=== PATIENT | female | born 1950 | race Caucasian/White ===

== ENCOUNTER 2016-09-06 06:53 | Day surgery (SDC) | payer MEDICARE, BC ==
[2016-08-31 11:45] VITALS: BMI 18.9
[2016-09-06] MEDS ORDERED: SODIUM CHLORIDE 0.9% 1,000 ML IV SCH (07:04)
[2016-09-06 07:14] VITALS: RESP 18
[2016-09-06 09:59] VITALS: BP 125/62; PULSE 69; TEMP 98.4
--- NOTE | 2016-09-06 11:05 | P.PCN ---
Preoperative Diagnosis: Patient with recurrent episodes of syncope Baseline 12-lead ECG shows sinus rhythm with normal cardiac intervals Normal CA interval Narrow QRS Following this she was taken to the tilt table lab Baseline blood pressure 141/65 mmHg Baseline heart rate 61 beats a minute Patient was tilted upright at an angle of 70 per protocol after about 30 minutes or so there was a sudden drop in her blood pressure to 77/50 mmHg. She stated that she was going to pass out and became presyncopal. Lowest blood pressure recorded was 73/39 mmHg while her heart rate was still normal at 70 beats a minute. She complained of nausea. When she was laid supine her blood pressure normalized Impression Vasovagal response to upright tilting Patient is currently on flecainide 50 mg twice daily and atenolol 12.5 mg by mouth daily for suppression of atrial fibrillation She also takes Maxide Suggest Stop Maxide Increase fluid and salt intake If symptoms continue despite this for the next 4-6 weeks then start Florinef 0.1 mg by mouth daily Discussed with the patient and her and explained the vasovagal response. Discussed therapy Anesthesia: none Condition: stable Disposition: same day
== END 2016-09-06 09:50 | disposition home or self-care (01) ==
LOC: CATHEP 06:53
PROVIDERS: ATTEND Internal Medicine Clinical Cardiac Electrophysiology
DX: R55 Syncope and collapse (principal); R94.31 Abnormal electrocardiogram [ECG] [EKG]; I48.0 Paroxysmal atrial fibrillation; I48.92 Unspecified atrial flutter; I49.5 Sick sinus syndrome; E78.5 Hyperlipidemia, unspecified; Z82.49 Family history of ischemic heart disease and other diseases of the circulatory system; Z79.899 Other long term (current) drug therapy; Z88.5 Allergy status to narcotic agent; Z88.0 Allergy status to penicillin; Z88.2 Allergy status to sulfonamides; Z88.8 Allergy status to other drugs, medicaments and biological substances; Z91.040 Latex allergy status; Z87.891 Personal history of nicotine dependence
CPT/HCPCS: 93005; 93660

== ENCOUNTER → 2016-12-12 | Outpatient (CLI) | payer MEDICARE, BC ==
[2016-12-12 10:08] LABS: Blood Urea Nitrogen 10 mg/dL (7-17); Non-African American GFR(MDRD) >60 (>60 ml/min/1.73 sqM)
--- NOTE | 2016-12-12 14:23 | MR ---
EXAMINATION TYPE: MR brain wo/w cspine wo, MR angio head wo con DATE OF EXAM: 12/12/2016 11:20 AM COMPARISON: MRI/MRA brain November 19, 2015. MRI cervical spine August 17, 2011. HISTORY: Headache, Cervicalgia (accession [id number]), Headache, Cervicalgia, Aneurysm (accession [id number]) TECHNIQUE: Multiplanar, multisequence images of the brain and brainstem is performed without and with IV contras t, utilizing 10 mL intravenous MultiHance . Multiplanar, multisequence imaging of cervical spine is p erformed without IV contrast. [id number] images focusing on [place] are performed withou t contrast. 2-D and 3-D reconstructed images are created and reviewed. FINDINGS: Diffusion weighted images demonstrate no evidence of a recent infarct or other diffusion ab normality. There is no worrisome extra-axial fluid collection. The ventricular system and cisternal spaces remain normal in size and appearance. Slight asymmetry is stable presumed congenital variant . The brain volume is age appropriate. Occasional focus of T2 hyperintensity throughout the white mat ter remains present. Midline structures demonstrate normal morphology. The craniocervical junction appears within normal limits. Post contrast images demonstrate no abnormal enhancement. The dural venous sinuses appear pa tent. The visualized sinuses are clear and the globes are intact. Some patchy fluid left mastoid air cells is again seen. MRA images show tortuous course to distal left vertebral artery. There is codominant vertebrobasilar system. There is no significant focal stenosis or aneurysmal change in the posterior circulation. The re are patent posterior communicating arteries identified bilaterally. Images of the anterior circula tion show poor visualization of anterior communicating artery. There is persistent 2 mm prominence of the distal right middle cerebral artery past the trifurcation could be due to branching vessels and cranial course seen best on axial image 65, stable aneurysm is not excluded. No new aneurysm is evide nt. IMPRESSION: Possible small right-sided aneurysm is stable. No new aneurysm is seen. Stable minimal wh ite matter changes presumed product of chronic small vessel ischemic change. No new or enhancing lesi ons identified. MRI CERVICAL SPINE: Motion artifact degradation is present. FINDINGS: Sagittal images of the cervical spine show the craniocervical junction to appear within nor mal limits. The cervical and upper thoracic spinal cord is normal in course, caliber, and signal. V ertebral alignment is anatomic. The vertebral body heights are normal. Mild multilevel disc space na rrowing is present most prominent C5-C6 level. Small posterior disc herniations are redemonstrated C3 -C4 through C5-C6 levels on sagittal images. The bone marrow signal intensity remains within normal l imits. No significant spurring is present. Axial images show the C2-C3 level to remain within normal limits. Axial images at C3-C4 level show uncovertebral facet degenerative changes bilaterally with mild broad based disc protrusion mildly effacing anterior thecal sac with mild bilateral neural foraminal narro wing, no significant change from prior study is seen. Axial images at C4-C5 level show uncovertebral facet degenerative changes bilaterally with mild broad -based posterior disc protrusion, there is mild bilateral neural foraminal narrowing and mild effacem ent of anterior thecal sac redemonstrated. Axial images at C5-C6 level show mild broad based posterior disc protrusion mildly effacing anterior thecal sac with left-sided uncovertebral facet degenerative changes causing mild left-sided neural fo raminal narrowing. Right-sided neural foramen is patent. Left-sided findings more prominent than prio r exam. Axial images at C6-C7 and C7-T1 level are degraded by artifact but felt within normal limits. IMPRESSION: Multilevel degenerative changes in the upper to mid cervical spine as detailed above with progression in findings at C5-C6 level noted.
== END | disposition home or self-care (01) ==
LOC: RADMRIMAIN 09:24
PROVIDERS: ATTEND Nurse Practitioner Acute Care
DX: R90.82 White matter disease, unspecified (principal); I67.82 Cerebral ischemia; M47.812 Spondylosis without myelopathy or radiculopathy, cervical region
CPT/HCPCS: 82565; 84520; 70544; 70553; 72141; A9577

== ENCOUNTER 2017-01-05 15:20 | Inpatient (IN) | payer MEDICARE, BC ==
[2017-01-05 15:29] VITALS: RESP 18
[2017-01-05] MEDS ORDERED: SODIUM CHLORIDE 0.9% 1,000 ML IV STA (15:46)
[2017-01-05] MEDS ORDERED: RX INFO: IV CONTRAST WAS GIVEN 1 EACH MISC MISCELLANE PRN (15:47)
--- NOTE | 2017-01-05 15:59 | ED ---
General Adult HPI - General Chief complaint: Neuro Symptoms/Deficit Stated complaint: Poss TIA Time Seen by Provider: 01/05/17 15:34 Source: patient, RN notes reviewed, old records reviewed Mode of arrival: wheelchair Limitations: no limitations - History of Present Illness Initial comments: This is a 58-year-old female here for evaluation. Patient is today for evaluation of neurological symptoms. Left-sided facial weakness left-sided eyelid weakness left-sided arm and leg weakness. Patient does have history history of aneurysm. Patient states that the symptoms she awoke with today. They have been consistent ever since she awoke. No consistent headaches. No nausea or vomiting. - Related Data Home Medications Medication Instructions Recorded Confirmed ALPRAZolam [ALPRAZolam] 0.5 mg PO TID PRN 12/29/14 01/05/17 DULoxetine HCL [Cymbalta] 60 mg PO DAILY 12/29/14 01/05/17 Meclizine [Antivert] 25 mg PO Q8H PRN 12/29/14 01/05/17 Triamterene-Hctz 37.5-25Mg 1 tab PO DAILY PRN 12/29/14 01/05/17 [Maxzide-25] Flecainide [Tambocor] 25 mg PO DAILY 04/12/16 01/05/17 Atenolol [Tenormin] 12.5 mg PO DAILY 01/05/17 01/05/17 Allergies Allergy/AdvReac Type Severity Reaction Status Date / Time acetazolamide Allergy Unknown Verified 01/05/17 16:16 [From Diamox Sequels] codeine Allergy Rash/Hives Verified 01/05/17 16:16 latex Allergy Anaphylaxis Verified 01/05/17 16:16 lidocaine Allergy Rapid Verified 01/05/17 16:16 Heart Rate meperidine HCl [From Demerol] Allergy Rash/Hives Verified 01/05/17 16:16 morphine Allergy Hallucinati Verified 01/05/17 16:16 ons Penicillins Allergy Rash/Hives Verified 01/05/17 16:16 prednisone Allergy Rash/Hives Verified 01/05/17 16:16 Sulfa (Sulfonamide Allergy Rash/Hives Verified 01/05/17 16:16 Antibiotics) iv contrast AdvReac Dyspnea Uncoded 01/05/17 16:43 Review of Systems ROS Statement: Those systems with pertinent positive or pertinent negative responses have been documented in the HPI. ROS Other: All systems not noted in ROS Statement are negative. 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 SKIN CA, BASAL CELL. MENIERE'S. SJOGREN'S. DRY EYES. EDEMA FEET, LEGS, HANDS. aneurysm right side of brain- monitoring History of Any Multi-Drug Resistant Organisms: None Reported Past Surgical History: Appendectomy, Breast Surgery, Hysterectomy, Orthopedic Surgery, Tonsillectomy Additional Past Surgical History / Comment(s): CHAUNCEY BREAST BX. EXC GANGLION CYST , carpal tunnel LT WRIST, tendon surgery rt hip Past Anesthesia/Blood Transfusion Reactions: Previous Problems w/ Anesthesia, Family History of Problems w/ Anesthesia, Motion Sickness, Postoperative Nausea & Vomiting (PONV) Additional Past Anesthesia/Blood Transfusion Reaction / Comment(s): general anesthesia caused hallucination for 3 days after hip surgery, LIDOCAINE CAUSES HEART TO RACE. SLOW TO AWAKEN. DAUGHTER AND SISTER HAVE PONV, Past Psychological History: Anxiety, Panic Disorder Additional Psychological History / Comment(s): PANIC ATTACKS IN PAST. Smoking Status: Former smoker Past Alcohol Use History: None Reported Additional Past Alcohol Use History / Comment(s): stopped smoking >20 yrs. ago, social smoker only-not every day Past Drug Use History: None Reported - Past Family History Mother Family Medical History: Deep Vein Thrombosis (DVT) Father Family Medical History: Cancer General Exam - General Exam Comments Initial Comments: NIH of 7 with left-sided facial left-sided arm and left leg weakness Limitations: no limitations General appearance: alert, in no apparent distress Head exam: Present: atraumatic, normocephalic, normal inspection Eye exam: Present: normal appearance, PERRL, EOMI. Absent: scleral icterus, conjunctival injection, periorbital swelling ENT exam: Present: normal exam, mucous membranes moist Neck exam: Present: normal inspection. Absent: tenderness, meningismus, lymphadenopathy Respiratory exam: Present: normal lung sounds bilaterally. Absent: respiratory distress, wheezes, rales, rhonchi, stridor Cardiovascular Exam: Present: regular rate, normal rhythm, normal heart sounds. Absent: systolic murmur, diastolic murmur, rubs, gallop, clicks GI/Abdominal exam: Present: soft, normal bowel sounds. Absent: distended, tenderness, guarding, rebound, rigid Extremities exam: Present: normal inspection, full ROM, normal capillary refill. Absent: tenderness, pedal edema, joint swelling, calf tenderness Back exam: Present: normal inspection Neurological exam: Present: alert, oriented X3, CN II-XII intact Psychiatric exam: Present: normal affect, normal mood Skin exam: Present: warm, dry, intact, normal color. Absent: rash Course Vital Signs 01/05/17 01/05/17 01/05/17 15:26 15:52 16:37 Temperature 97.8 F Pulse Rate 74 65 68 Respiratory 18 18 18 Rate Blood Pressure 167/71 160/71 173/74 O2 Sat by Pulse 100 100 98 Oximetry 01/05/17 01/05/17 01/05/17 17:19 18:47 19:53 Temperature 98.2 F Pulse Rate 75 77 71 Respiratory 18 18 18 Rate Blood Pressure 184/83 151/87 157/74 O2 Sat by Pulse 100 98 98 Oximetry 01/05/17 01/05/17 22:23 23:17 Temperature 98.0 F 98.3 F Pulse Rate 78 78 Respiratory 18 18 Rate Blood Pressure 150/67 146/74 O2 Sat by Pulse 99 100 Oximetry - Reevaluation(s) Reevaluation #1: 01/05/17 18:51 At this point symptoms remain, no change Reevaluation #2: 01/05/17 18:52 Spoke with neurological intervention, spoke with neurological, spoke with Saji villavicencioay for transfer EKG Findings - EKG Comments: EKG Findings:: EKG shows normal sinus rhythm rate of 65, MA 200, QRS 88, QTC 416 Medical Decision Making - Medical Decision Making 58 female in the ER for evaluation. Patient has known aneurysm on MRI, at this point patient coming with left-sided weakness. Patient retransferred for neurologic intervention. Patient family refusing transfer to [facility], will wish to be transferred to [facility]. At this point we'll transfer patient to [facility] - Lab Data Result diagrams: 01/05/17 15:55 01/05/17 15:55 Lab Results 01/05/17 01/05/17 01/05/17 Range/Units 15:55 15:55 15:55 WBC 5.1 (3.8-10.6) k/uL RBC 3.68 L (3.80-5.40) m/uL Hgb 11.2 L (11.4-16.0) gm/dL Hct 35.1 (34.0-46.0) % MCV 95.4 (80.0-100.0) fL MCH 30.4 (25.0-35.0) pg MCHC 31.8 (31.0-37.0) g/dL RDW 12.6 (11.5-15.5) % Plt Count 336 (150-450) k/uL Neutrophils % 59 % Lymphocytes % 30 % Monocytes % 6 % Eosinophils % 2 % Basophils % 2 % Neutrophils # 3.0 (1.3-7.7) k/uL Lymphocytes # 1.5 (1.0-4.8) k/uL Monocytes # 0.3 (0-1.0) k/uL Eosinophils # 0.1 (0-0.7) k/uL Basophils # 0.1 (0-0.2) k/uL PT (9.0-12.0) sec INR (<1.1) APTT (22.0-30.0) sec Sodium 139 (137-145) mmol/L Potassium 4.1 (3.5-5.1) mmol/L Chloride 105 (98-107) mmol/L Carbon Dioxide 25 (22-30) mmol/L Anion Gap 9 mmol/L BUN 10 (7-17) mg/dL Creatinine 0.84 (0.52-1.04) mg/dL Est GFR (MDRD) Af Amer >60 (>60 ml/min/1.73 sqM) Est GFR (MDRD) Non-Af >60 (>60 ml/min/1.73 sqM) Glucose 103 H (74-99) mg/dL Calcium 8.9 (8.4-10.2) mg/dL Phosphorus 3.7 (2.5-4.5) mg/dL Magnesium 1.7 (1.6-2.3) mg/dL Total Bilirubin 0.5 (0.2-1.3) mg/dL AST 21 (14-36) U/L ALT 24 (9-52) U/L Alkaline Phosphatase 65 (38-126) U/L Total Creatine Kinase 76 (30-135) U/L CK-MB (CK-2) 0.6 (0.0-2.4) ng/mL CK-MB (CK-2) Rel Index 0.8 Troponin I <0.012 (0.000-0.034) ng/mL Total Protein 6.5 (6.3-8.2) g/dL Albumin 3.8 (3.5-5.0) g/dL Urine Color Urine Appearance (Clear) Urine pH (5.0-8.0) Ur Specific Wisner (1.001-1.035) Urine Protein (Negative) Urine Glucose (UA) (Negative) Urine Ketones (Negative) Urine Blood (Negative) Urine Nitrite (Negative) Urine Bilirubin (Negative) Urine Urobilinogen (<2.0) mg/dL Ur Leukocyte Esterase (Negative) Urine RBC (0-5) /hpf Urine WBC (0-5) /hpf Urine Bacteria (None) /hpf 01/05/17 01/05/17 Range/Units 15:55 16:45 WBC (3.8-10.6) k/uL RBC (3.80-5.40) m/uL Hgb (11.4-16.0) gm/dL Hct (34.0-46.0) % MCV (80.0-100.0) fL MCH (25.0-35.0) pg MCHC (31.0-37.0) g/dL RDW (11.5-15.5) % Plt Count (150-450) k/uL Neutrophils % % Lymphocytes % % Monocytes % % Eosinophils % % Basophils % % Neutrophils # (1.3-7.7) k/uL Lymphocytes # (1.0-4.8) k/uL Monocytes # (0-1.0) k/uL Eosinophils # (0-0.7) k/uL Basophils # (0-0.2) k/uL PT 11.3 (9.0-12.0) sec INR 1.1 (<1.1) APTT 25.3 (22.0-30.0) sec Sodium (137-145) mmol/L Potassium (3.5-5.1) mmol/L Chloride (98-107) mmol/L Carbon Dioxide (22-30) mmol/L Anion Gap mmol/L BUN (7-17) mg/dL Creatinine (0.52-1.04) mg/dL Est GFR (MDRD) Af Amer (>60 ml/min/1.73 sqM) Est GFR (MDRD) Non-Af (>60 ml/min/1.73 sqM) Glucose (74-99) mg/dL Calcium (8.4-10.2) mg/dL Phosphorus (2.5-4.5) mg/dL Magnesium (1.6-2.3) mg/dL Total Bilirubin (0.2-1.3) mg/dL AST (14-36) U/L ALT (9-52) U/L Alkaline Phosphatase (38-126) U/L Total Creatine Kinase (30-135) U/L CK-MB (CK-2) (0.0-2.4) ng/mL CK-MB (CK-2) Rel Index Troponin I (0.000-0.034) ng/mL Total Protein (6.3-8.2) g/dL Albumin (3.5-5.0) g/dL Urine Color Colorless Urine Appearance Clear (Clear) Urine pH 6.5 (5.0-8.0) Ur Specific Wisner 1.001 (1.001-1.035) Urine Protein Negative (Negative) Urine Glucose (UA) Negative (Negative) Urine Ketones Negative (Negative) Urine Blood Small H (Negative) Urine Nitrite Negative (Negative) Urine Bilirubin Negative (Negative) Urine Urobilinogen <2.0 (<2.0) mg/dL Ur Leukocyte Esterase Small H (Negative) Urine RBC <1 (0-5) /hpf Urine WBC 3 (0-5) /hpf Urine Bacteria Rare H (None) /hpf - Radiology Data Radiology results: report reviewed (CT brain CTA head and neck does show 5 mm aneurysm), image reviewed Disposition Clinical Impression: Cerebrovascular accident, Brain aneurysm Narrative: Left Sided Weakness Disposition: OTHER INSTITUTION NOT DEFINED Condition: Serious - Out of Hospital Transfer - Req. Specs Out of Hospital Transfer - Requested Specifics: Other Emergency Center ( [facility])
[2017-01-05 16:04] LABS: Basophils # (A) 0.1 k/uL (0-0.2); Basophils % (A) 2 %; CH 30.9; CHCM 32.5; Eosinophils # (A) 0.1 k/uL (0-0.7); Eosinophils % (A) 2 %; HCT 35.1 % (34.0-46.0); HDW 2.21; HGB 11.2 gm/dL (11.4-16.0); Luc # (Auto) 0.13; Luc % (Auto) 3; Lymphocytes # (A) 1.5 k/uL (1.0-4.8); Lymphocytes % (A) 30 %; MCH 30.4 pg (25.0-35.0); MCHC 31.8 g/dL (31.0-37.0); MCV 95.4 fL (80.0-100.0); Mean Platelet Volume 7.3; Monocytes # (A) 0.3 k/uL (0-1.0); Monocytes % (A) 6 %; Neutrophils % (A) 59 %; RBC 3.68 m/uL (3.80-5.40); RDW 12.6 % (11.5-15.5); WBC 5.1 k/uL (3.8-10.6); WBC (Perox) 5.05
[2017-01-05 16:14] LABS: INR 1.1 (<1.1); Partial Thromboplastin Time 25.3 sec (22.0-30.0); Prothrombin Time 11.3 sec (9.0-12.0)
[2017-01-05] MEDS ORDERED: methylPREDNISolone SOD SUCCI 125 MG/2 ML VIAL IV STA (16:25)
[2017-01-05] MEDS ORDERED: FAMOTIDINE 20 MG/2 ML VIAL IV STA (16:25)
[2017-01-05] MEDS ORDERED: diphenhydrAMINE 50 MG/ML 1 ML VIAL IVP STA (16:25)
[2017-01-05 16:50] LABS: Creatine Kinase 76 U/L (30-135)
[2017-01-05 16:57] LABS: ALT 24 U/L (9-52); AST 21 U/L (14-36); Alkaline Phosphatase 65 U/L (38-126); Anion Gap 9 mmol/L; Blood Urea Nitrogen 10 mg/dL (7-17); Calcium 8.9 mg/dL (8.4-10.2); Carbon Dioxide 25 mmol/L (22-30); Chloride 105 mmol/L (98-107); Glucose 103 mg/dL (74-99); Magnesium 1.7 mg/dL (1.6-2.3); Non-African American GFR(MDRD) >60 (>60 ml/min/1.73 sqM); Phosphorous 3.7 mg/dL (2.5-4.5); Potassium 4.1 mmol/L (3.5-5.1); Sodium 139 mmol/L (137-145); Total Bilirubin 0.5 mg/dL (0.2-1.3); Total Protein 6.5 g/dL (6.3-8.2)
[2017-01-05 17:02] LABS: Creatine Kinase MB 0.6 ng/mL (0.0-2.4); Troponin I <0.012 ng/mL (0.000-0.034)
[2017-01-05 17:06] LABS: Appearance,Urine Clear (Clear); Bacteria,Urine Rare /hpf; Bilirubin,Urine Negative (Negative); Glucose,Urine (UA) Negative (Negative); Ketones,Urine Negative (Negative); Leukocyte Esterase,Urine Small (Negative); Nitrite,Urine Negative (Negative); PH, Urine 6.5 (5.0-8.0); Particle Count 438; Protein,Urine Negative (Negative); RBC,Urine <1 /hpf (0-5); Specific Gravity,Urine 1.001 (1.001-1.035); UA Billing (MACRO vs. MICRO) MICRO; Urobilinogen,Urine <2.0 mg/dL (<2.0); WBC,Urine 3 /hpf (0-5)
--- NOTE | 2017-01-05 18:11 | CT ---
EXAMINATION TYPE: CT angio head neck DATE OF EXAM: 01/05/2017 5:47 PM COMPARISON: NONE HISTORY: Left sided weakness CT DLP: 1415 mGycm Automated exposure control for dose reduction was used. TECHNIQUE: Performed with IV Contrast, patient injected with 65 mL of Visipaque 320. There are 3-D post processed images.. FINDINGS: There is arterial flow in the anterior middle and posterior cerebral arteries. There is arterial flow in the vertebrobasilar artery system. There is bilateral patency of the posterior communicating adelina ruben. I see no evidence of neovascularity. There is normal contrast opacification of the venous sinus es. There is slight bulbous appearance of the tip of the basilar artery. This measures 5 mm. The common carotid arteries are widely patent. There is wide patency of the carotid artery bifurcatio ns. There is no evidence of stenosis. There is no sign of carotid dissection. IMPRESSION: THERE IS SLIGHT BULBOUS APPEARANCE OF THE TIP OF THE BASILAR ARTERY CONSISTENT WITH MINIMAL 5 MM ANEU RYSM. OTHERWISE NEGATIVE CT ANGIOGRAM OF THE BRAIN.. NORMAL CT ANGIOGRAM OF THE NECK.
--- NOTE | 2017-01-05 18:13 | CT ---
EXAMINATION TYPE: CT brain wo con DATE OF EXAM: 01/05/2017 5:47 PM COMPARISON: 12/16/2015 HISTORY: Left sided weakness. CT DLP: 1415 mGycm Automated exposure control for dose reduction was used. FINDINGS: There is mild cerebral cortical atrophy. There is no mass effect nor midline shift. There is no sign of intracranial hemorrhage. The calvarium is intact. IMPRESSION: Negative unenhanced head CT scan. No change. Mild cerebral atrophy.
[2017-01-05] MEDS ORDERED: LABETALOL 5 MG/ML VIAL MDV IVP STA (19:02)
[2017-01-05] MEDS ORDERED: ASPIRIN 325 MG TAB PO STA (19:03)
[2017-01-05] MEDS ORDERED: SODIUM CHLORIDE 0.9% 1,000 ML IV SCH (19:15)
[2017-01-05 22:24] VITALS: PULSE 78
[2017-01-05 23:18] VITALS: BP 146/74; TEMP 98.3
[2017-01-06] MEDS ORDERED: ASPIRIN 325 MG TAB PO SCH (09:00)
--- NOTE | 2017-01-06 09:14 | HP ---
DATE OF ADMISSION: 01/05/2017 PRESENTING COMPLAINT: Left-sided weakness. HISTORY OF PRESENTING COMPLAINT: This is a pleasant 66-year-old patient of Dr. Love. Patient does follow with Dr. Yip. 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 Has been followed by Dr. Yip. Patient also has a diagnosis of normal pressure hydrocephalus. Also has history of atrial fibrillation, no anticoagulation because of aneurysm. Patient's aneurysm is at the tip of the right basilar artery. Patient's other chronic stable medical conditions include fibromyalgia, osteoarthritis, Meniere's disease, Sjogren's syndrome. Patient now presents with some blurriness of vision, headache, weakness in the left side of the body. Initially, the ER physician spoken to the neurology at [facility] and they wanted to do an MRI in the morning. I came down and then talked to the family. Patient does have an appointment at [facility] with a neurosurgeon, the name of which is not known. REVIEW OF SYSTEMS: CONSTITUTIONAL: Tired. HEENT: As above. RESPIRATORY: None. CARDIOVASCULAR: None. GASTROINTESTINAL: None. GENITOURINARY: None. MUSCULOSKELETAL: Pain in different joints. DERMATOLOGICAL: None. HEMATOLOGICAL: None. LYMPHATICS: None. PSYCHIATRY: Anxious. NEUROLOGICAL: As above. Past history of fibromyalgia, osteoarthritis, Bright's disease, Meniere's disease, Sjogren's syndrome, right basilar artery aneurysm, normal pressure hydrocephalus, atrial fibrillation. PAST SURGICAL HISTORY: Appendectomy, breast surgery, hysterectomy, tonsillectomy, excision ganglion, left carpal tunnel tendon, surgery of the right hip. SOCIAL HISTORY: Lives with her , stopped smoking about 20 years ago, no alcohol. Family history of cancer. HOME MEDICATIONS: 1. Tambocor 25 mg p.o. daily. 2. Cymbalta 60 mg p.o. daily. 3. Tenormin 12.5 p.o. daily. 4. Xanax 0.5 p.o. daily p.r.n. 5. Maxzide 37.5-25 one tablet p.o. daily p.r.n. 6. Antivert 25 p.o. q.8 p.r.n. ALLERGIES: List is long including DIAMOX, CODEINE, LATEX, LIDOCAINE, DEMEROL, MORPHINE, PENICILLIN, PREDNISONE, SULFA, IV CONTRAST. On examination, temperature 98.2, pulse 75, respiration 18, blood pressure 150/67, pulse ox 99% on room air. GENERAL APPEARANCE: Thin build, lying in bed, anxious-appearing. EYES: Pupils equal. Conjunctivae are normal. HEENT: Oral cavity normal. NECK: JVD not raised. Mass not palpable. Respiratory effort normal. LUNGS: Slightly decreased breath sounds. CARDIOVASCULAR: First and second sounds normal. No edema. ABDOMEN: Soft, nontender. Liver and spleen not palpable. LYMPHATIC: No lymph nodes palpable in neck or axillae. PSYCHIATRY: Alert and oriented x3. Mood and affect anxious-appearing. NEUROLOGICAL: Pupils equal. Cranial nerves grossly intact. Power in the left arm and left leg is 4, reflexes are increased on the left side, sensation grossly preserved. INVESTIGATIONS: White count 5.1, hemoglobin 11.2, platelets 336, potassium 4.1. BUN and creatinine is normal. CT angio of the brain shows slight bulbous appearance of the tip of the basilar artery with about a 5 mm aneurysm. ASSESSMENT: 1. Acute stroke on the left side of the body in a patient who has a known right basilar tip aneurysm. At the same time has underlying history of atrial fibrillation, cannot rule out embolic cause. Patient currently is in sinus rhythm, but that does not rule out the latter. 2. Chronic fibromyalgia. 3. Primary osteoarthritis of multiple joints. 4. Sjogren's syndrome. 5. Normal pressure hydrocephalus. 6. Paroxysmal atrial fibrillation, currently in sinus rhythm. PLAN: Patient is currently getting IV fluids. I talked to the patient and the family. They are okay to get the patient transferred to [facility]. The transfer will happen tonight. Patient has been accepted by the neurosurgeon body shop floorperson. Care was discussed with the patient and daughter at the bedside who are acceptable for the transfer. THIS IS ALSO A DISCHARGE SUMMARY ON THIS PATIENT PATIENT IS GETTING TRANSFERRED OUT TO [facility] TONIGHT.
== END 2017-01-05 23:42 | disposition short-term general hospital (02) | DRG 65 ==
LOC: EC 15:20 → 6SEL 19:05
PROVIDERS: ADMIT Hospitalist; ATTEND Hospitalist
DX: I63.9 Cerebral infarction, unspecified (principal); G91.2 (Idiopathic) normal pressure hydrocephalus; G81.94 Hemiplegia, unspecified affecting left nondominant side; I67.1 Cerebral aneurysm, nonruptured; I48.0 Paroxysmal atrial fibrillation; M35.00 Sjogren syndrome, unspecified; F41.0 Panic disorder [episodic paroxysmal anxiety]; H81.09 Meniere's disease, unspecified ear; M15.9 Polyosteoarthritis, unspecified; M79.7 Fibromyalgia; F41.9 Anxiety disorder, unspecified; H53.8 Other visual disturbances; R29.810 Facial weakness; Z85.828 Personal history of other malignant neoplasm of skin; Z87.891 Personal history of nicotine dependence; Z79.899 Other long term (current) drug therapy; Z88.5 Allergy status to narcotic agent; Z88.0 Allergy status to penicillin; Z88.2 Allergy status to sulfonamides; Z88.8 Allergy status to other drugs, medicaments and biological substances; Z91.041 Radiographic dye allergy status; Z91.040 Latex allergy status
CPT/HCPCS: 36415; 70450; 70496; 70498; 80053; 81001; 82550; 82553; 83735; 84100; 84484; 85025; 85610; 85730; 93005; 96361; 96374; 96375; 99285

== ENCOUNTER → 2017-10-07 | Outpatient (CLI) | payer MEDICARE, BC ==
[2017-10-07 13:18] LABS: Blood Urea Nitrogen 10 mg/dL (7-17)
--- NOTE | 2017-10-07 15:02 | MR ---
EXAMINATION TYPE: MR brain wo/w con DATE OF EXAM: 10/07/2017 COMPARISON: December 12, 2016. HISTORY: G 93.2, pseudotumor cerebri. Right-sided hearing loss. Left-sided numbness. History of an an eurysm. TECHNIQUE: Multiplanar, multisequence images of the brain and brainstem is performed without and with IV contras t, utilizing 5 mL intravenous Gadavist. FINDINGS: Diffusion weighted images demonstrate no evidence of a recent infarct or other diffusion ab normality. No extra-axial fluid collection is identified. There is slight enlargement of the right la teral ventricle when compared to the left which is stable when compared to the previous study. Severa l foci of periventricular and subcortical T2 and FLAIR signal hyperintensity are identified which are unchanged in the previous study on December 12, 2016. There is no significant cortical atrophy. On this nondedicated study the orbits and optic nerves appear grossly unremarkable. On this nondedicated yamila dy the dural venous sinuses appear grossly unremarkable. Midline structures demonstrate normal morphology. The craniocervical junction appears within normal limits. Post contrast images demonstrate no abnormal enhancement. Previously described suspected ane urysm in the right middle cerebral artery appears grossly unchanged on this nondedicated study. There is again a bulbous appearance of the basilar tip measuring up to 5 mm. The dural venous sinuses appe ar patent. The visualized sinuses are clear and the globes are intact. IMPRESSION: No change in appearance of the brain. No significant findings. Lumbar puncture could be p erformed to evaluate for elevated CSF pressures.
== END | disposition home or self-care (01) ==
LOC: RADMRIMAIN 12:46
PROVIDERS: ATTEND Psychiatry & Neurology Neurology
DX: G93.2 Benign intracranial hypertension (principal)
CPT/HCPCS: 82565; 84520; 70553; 36415; A9581

== ENCOUNTER → 2018-03-22 | Outpatient (CLI) | payer MEDICARE, BC ==
--- NOTE | 2018-03-22 13:55 | MM ---
Reason for exam: clinical finding. Last mammogram was performed 3 years and 6 months ago. History: Patient is postmenopausal and history of other cancer. Family history of breast cancer in mother at age 30 and breast cancer in maternal aunt at age 50. Benign excisional biopsy of the left breast. Benign excisional biopsy of the right breast. Took estrogen for 20 years. Physical Findings: Nurse did not find any significant physical abnormalities on exam. MG 3D Diag Mammo W/Cad CHAUNCEY Bilateral CC and MLO view(s) were taken. Prior study comparison: September 22, 2014, bilateral MG diagnostic mammo w CAD CHAUNCEY. May 23, 2012, bilateral digital screening mammo w/CAD. The breast tissue is extremely dense which could obscure a lesion on mammography. No discrete abnormality. No significant new findings when compared with previous films. These results were verbally communicated with the patient and result sheet given to the patient on 03/22/18. ASSESSMENT: Negative, BI-RAD 1 RECOMMENDATION: Routine screening mammogram of both breasts in 1 year. Manage on a clinical basis.
== END | disposition home or self-care (01) ==
LOC: RADMAMWWP 10:35
PROVIDERS: ATTEND Pediatrics
DX: N64.4 Mastodynia (principal)
CPT/HCPCS: 77066; G0279; 77062

== ENCOUNTER → 2018-03-22 | Outpatient (CLI) | payer MEDICARE, BC ==
--- NOTE | 2018-03-22 14:41 | CT ---
EXAMINATION TYPE: CT abdomen w con DATE OF EXAM: 03/22/2018 HISTORY: epigastric pain CT DLP: 242.4mGycm Automated Exposure Control for Dose Reduction was Utilized. CONTRAST: CT scan of the abdomen is performed with IV Contrast, patient injected with 100 mL of Isovue 300. COMPARISON: 11/11/2013 FINDINGS: LUNG BASES: No significant abnormality is appreciated. LIVER/GB: Solitary 2 mm hepatic lesion is seen on series 3 image 19 within the left hepatic lobe that is too small to accurately characterize. No other focal hepatic mass. No intrahepatic biliary ductal dilatation. No CT evidence of cholelithiasis or right upper quadrant fat stranding. PANCREAS: Pancreatic parenchyma enhances homogeneously without ductal dilatation. SPLEEN: No significant abnormality is seen. Small splenule is seen anterior to the tribal spleen. No splenomegaly. ADRENALS: No significant abnormality is seen. KIDNEYS: The kidneys enhance and excrete symmetrically without hydronephrosis.. BOWEL: There is mild dilatation of the proximal third portion of the duodenum measuring 3.2 cm. This tapers in caliber to 6 mm between the abdominal aorta and superior mesenteric artery returning to nor mal caliber distal to this. Additionally there is normal angulation of the takeoff of the superior me senteric artery measuring 10 degrees suggesting superior mesenteric artery syndrome. LYMPH NODES: No greater than 1cm abdominal or pelvic lymph nodes are appreciated. OSSEOUS STRUCTURES: No significant abnormality is seen. 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 No evidence of complete obstruction.
== END | disposition home or self-care (01) ==
LOC: RADCTMAIN 13:20
PROVIDERS: ATTEND Pediatrics
DX: K59.8 Other specified functional intestinal disorders (principal); R10.9 Unspecified abdominal pain
CPT/HCPCS: 82565; 84520; 74160; 36415; Q9967

== ENCOUNTER → 2018-04-02 | Outpatient (CLI) | payer MEDICARE, BC ==
--- NOTE | 2018-04-02 12:47 | MR ---
EXAMINATION TYPE: MR brain wo/w con DATE OF EXAM: 04/02/2018 COMPARISON: Prior MRI brain October 07, 2017 and older MRI back through January 30, 2012. Prior CT brain January 05, 2017 and older CTs. HISTORY: Pseudotumor cerebri TECHNIQUE: Multiplanar, multisequence images of the brain and brainstem is performed without and with IV contras t, utilizing 5 mL intravenous Gadavist . FINDINGS: Diffusion weighted images demonstrate no evidence of a recent infarct or other diffusion ab normality. There is no worrisome extra-axial fluid collection. Mild prominence of ventricular and bowman lcal system is redemonstrated most prominent over the bilateral frontal lobes. Asymmetric appearance to the ventricular system right greater than left is redemonstrated. Stable subtle midline shift axia l image 17 is present. A few small scattered foci of T2 hyperintensity seen throughout the deep and p eriventricular white matter are present, less than 6 lesions are noted on current and most recent marcie or MRI. Midline structures demonstrate normal morphology. The craniocervical junction appears within normal limits. Post contrast images demonstrate no abnormal enhancement. Stable prominence at basilar tip. The dural venous sinuses appear patent. The visualized sinuses are clear and the globes are intact. P atchy increased fluid signal left mastoid air cells remains present. Nasal septum is slightly deviate d to right of midline anteriorly unchanged from priors. IMPRESSION: Overall stable findings, stable ventricular asymmetry back through 2010 MRI. No significa nt new or enhancing finding identified.
== END | disposition home or self-care (01) ==
LOC: RADMRIMAIN 11:16
PROVIDERS: ATTEND Psychiatry & Neurology Neurology
DX: G93.2 Benign intracranial hypertension (principal); Z88.0 Allergy status to penicillin; Z88.5 Allergy status to narcotic agent
CPT/HCPCS: 70553; A9581

== ENCOUNTER 2018-04-18 08:45 | Day surgery (SDC) | payer MEDICARE, BC ==
[2018-04-17 12:53] VITALS: BMI 19.3
--- NOTE | 2018-04-18 07:37 | P.GSHP ---
History of Present Illness H&P Date: 04/18/18 CHIEF COMPLAINT: GERD and colon screen HISTORY OF PRESENT ILLNESS: The patient is a 67-year-old female who presents with gastroesophageal reflux disease and need for colon screen. Upper and lower endoscopy were offered for further evaluation and management. PAST MEDICAL HISTORY: Please see list. PAST SURGICAL HISTORY: Please see list. MEDICATIONS: Please see list. ALLERGIES: Please see list. SOCIAL HISTORY: No illicit drug use FAMILY HISTORY: No reports of Crohn disease or ulcerative colitis. REVIEW OF ORGAN SYSTEMS: CONSTITUTIONAL: No reports of fevers or chills. GI: Denies any blood in stools or constipation. PHYSICAL EXAM: VITAL SIGNS: Stable GENERAL: Well-developed pleasant in no acute distress. HEENT: No scleral icterus. Extraocular movements grossly intact. Moist buccal mucosa. NECK: Supple without lymphadenopathy. CHEST: Unlabored respirations. Equal bilateral excursions. CARDIOVASCULAR: Regular rate and rhythm. Distal 2+ pulses. ABDOMEN: Soft, nondistended. MUSCULOSKELETAL: No clubbing, cyanosis, or edema. ASSESSMENT: 1. Gastroesophageal reflux disease 2. Colon screen. PLAN: 1. 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 SKIN CA, BASAL CELL. MENIERE'S. SJOGREN'S. 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 LOOP RECORDER. 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 EXC GANGLION CYST , carpal tunnel LT WRIST, Tendon surgery rt hip. LOOP RECORDER 2017. Past Anesthesia/Blood Transfusion Reactions: Previous Problems w/ Anesthesia, Family History of Problems w/ Anesthesia, Motion Sickness, Postoperative Nausea & Vomiting (PONV) Additional Past Anesthesia/Blood Transfusion Reaction / Comment(s): general anesthesia caused hallucination for 3 days after hip surgery, LIDOCAINE CAUSES HEART TO RACE; SLOW TO AWAKEN. DAUGHTER AND SISTER HAVE PONV. Smoking Status: Former smoker - Past Family History Mother Family Medical History: Deep Vein Thrombosis (DVT) Father Family Medical History: Cancer Medications and Allergies Home Medications Medication Instructions Recorded Confirmed Type ALPRAZolam 0.5 mg PO TID PRN 12/29/14 04/17/18 History DULoxetine HCL [Cymbalta] 60 mg PO DAILY 12/29/14 04/17/18 History Cyanocobalamin [Vitamin B-12 1,000 mcg IM Q30D 06/20/17 04/17/18 History Injection] Acetaminophen [Tylenol Extra 500 - 1,000 mg PO Q6H PRN 04/17/18 04/17/18 History Strength] Allergies Allergy/AdvReac Type Severity Reaction Status Date / Time Iodinated Contrast- Oral and Allergy Dyspnea Verified 04/17/18 12:30 IV Dye iv contrast AdvReac Dyspnea Uncoded 04/17/18 12:30
[2018-04-18 09:22] VITALS: TEMP 98.4
[2018-04-18] MEDS ORDERED: LACTATED RINGERS 1,000 ML IV ONE (09:29)
[2018-04-18] MEDS ORDERED: LIDOCAINE 1% 20 ML VIAL (10MG/ML) FOR IV START INTRADERMA ONE (09:30)
[2018-04-18] MEDS ORDERED: ONDANSETRON 4 MG/2 ML VIAL IVP ONE (09:35)
[2018-04-18] MEDS ORDERED: PROPOFOL 10 MG/ML 20 ML VIAL IV ONE (09:58)
[2018-04-18] MEDS ORDERED: LIDOCAINE 1% INJ 10MG/ML (20 ML MDV) ONE (09:58)
--- NOTE | 2018-04-18 10:13 | P.PCN ---
Date of Procedure: 04/18/18 Description of Procedure: PREOPERATIVE DIAGNOSIS: Epigastric abdominal pain Superior mesenteric artery syndrome Unintentional weight loss POSTOPERATIVE DIAGNOSIS: Epigastric abdominal pain Superior mesenteric artery syndrome Unintentional weight loss Diaphragmatic hiatal hernia OPERATION: Esophagogastroduodenoscopy with biopsies along antrum. SURGEON: Hollie Cullen MD ANESTHESIA: MAC. INDICATIONS: The patient is a 67-year-old female who presents with a history of epigastric abdominal pain, unintentional weight loss and superior mesenteric artery syndrome. She reports severe abdominal pain after eating. Benefits and risks of the procedure were described. Informed consent was obtained. DESCRIPTION: The patient was brought into the endoscopy suite and laid in the left lateral decubitus position. An Olympus gastroscope was passed along the posterior oropharynx down to the distal esophagus where the squamocolumnar junction was encountered at 31 cm from the incisors. The stomach was entered and no bile reflux was found. Additional findings are listed below. Biopsies with cold forceps were obtained of the antrum. The first through third portion of the duodenum was examined and unremarkable. Retroflexion of the scope confirmed Hill grade 4 lower esophageal valve. The squamocolumnar junction demonstrated no LA grade A erosive esophagitis. The stomach was desufflated. The patient tolerated the procedure well. FINDINGS: Squamocolumnar junction 36 cm from the incisors. Diaphragmatic hiatus at 31 cm. Hiatal hernia, 5 cm Hill grade 4 lower esophageal valve. No LA grade A erosive esophagitis. No active duodenitis. RECOMMENDATIONS: Upper endoscopy as needed. Recommend manometry
--- NOTE | 2018-04-18 10:34 | P.PCN ---
Date of Procedure: 04/18/18 Description of Procedure: PREOPERATIVE DIAGNOSIS: Colonoscopy screening. POSTOPERATIVE DIAGNOSIS: Colonoscopy screening. Colon polyp at hepatic flexure Sigmoid colon stricture OPERATION: Colonoscopy to the ileocecal valve and appendiceal orifice. Colonoscopy with cold forceps biopsy at hepatic flexure SURGEON: Hollie Cullen MD. ANESTHESIA: MAC. INDICATIONS: The patient is a 67-year-old female who presents for colonoscopy screening. Benefits and risks were described and informed consent was obtained. DESCRIPTION OF PROCEDURE: The patient had undergone Gatorade, MiraLAX and Dulcolax prep. She had been brought into the operating room and laid in the left lateral decubitus position. After adequate intravenous sedation, the rectum was examined with 2% lidocaine jelly. No external hemorrhoids were encountered. The rectal tone was within normal limits. No lesions were palpated in the rectal vault. An Olympus PEDIATRIC colonoscope was advanced until the ileocecal valve and appendiceal orifice were clearly viewed. The prep was excellent with clear visualization of the mucosal folds. The colon was extremely tortuous especially along the sigmoid colon where stricture was identified between 20 and 30 cm from the anal verge. A flat tubular adenoma of 3 mm cold forceps biopsy to completion at the hepatic flexure. The scope was removed with visualization of each mucosal fold. No scattered diverticulosis was encountered. No evidence of focal colitis was found. Retroflexion of the scope demonstrated no internal hemorrhoids without active bleeding or inflammation. The colon was desufflated. The patient had tolerated the procedure well. Withdrawal time was over 6 minutes. FINDINGS: No sigmoid diverticulosis No internal hemorrhoids No external prolapsed hemorrhoids. No arteriovenous malformations. The colon was extremely tortuous especially along the sigmoid colon where stricture was identified between 20 and 30 cm from the anal verge. A flat tubular adenoma of 3 mm cold forceps biopsy to completion at the hepatic flexure. No focal colitis. RECOMMENDATIONS: Lower endoscopy in 5 years, 2022 Plan - Discharge Summary New Discharge Prescriptions: No Action DULoxetine HCL [Cymbalta] 60 mg PO DAILY ALPRAZolam 0.5 mg PO TID PRN PRN Reason: Anxiety Cyanocobalamin [Vitamin B-12 Injection] 1,000 mcg IM Q30D Acetaminophen [Tylenol Extra Strength] 500 - 1,000 mg PO Q6H PRN PRN Reason: Pain Discharge Medication List ALPRAZolam 0.5 mg PO TID PRN 12/29/14 [History] DULoxetine HCL [Cymbalta] 60 mg PO DAILY 12/29/14 [History] Cyanocobalamin [Vitamin B-12 Injection] 1,000 mcg IM Q30D 06/20/17 [History] Acetaminophen [Tylenol Extra Strength] 500 - 1,000 mg PO Q6H PRN 04/17/18 [ History]
[2018-04-18 11:05] VITALS: BP 100/68; PULSE 70; RESP 18
== END 2018-04-18 11:15 | disposition home or self-care (01) ==
LOC: ORWHC2ENDO 08:45
PROVIDERS: ATTEND Surgery Plastic and Reconstructive Surgery
DX: D12.3 Benign neoplasm of transverse colon (principal); K29.50 Unspecified chronic gastritis without bleeding; K21.9 Gastro-esophageal reflux disease without esophagitis; I48.91 Unspecified atrial fibrillation; M79.7 Fibromyalgia; M19.90 Unspecified osteoarthritis, unspecified site; N05.9 Unspecified nephritic syndrome with unspecified morphologic changes; M35.00 Sjogren syndrome, unspecified; K55.1 Chronic vascular disorders of intestine; K56.699 Other intestinal obstruction unspecified as to partial versus complete obstruction; K44.9 Diaphragmatic hernia without obstruction or gangrene; Z91.041 Radiographic dye allergy status; Z91.040 Latex allergy status; Z87.891 Personal history of nicotine dependence; Z79.899 Other long term (current) drug therapy; Z79.891 Long term (current) use of opiate analgesic; Z85.828 Personal history of other malignant neoplasm of skin
CPT/HCPCS: 88305; 45380; 43239; J2405; J2001; J2704

== ENCOUNTER 2018-07-05 12:43 | Inpatient (IN) | payer MEDICARE, BC ==
[2018-06-27 13:41] VITALS: BMI 19.3
--- NOTE | 2018-07-05 05:29 | P.GSHP ---
History of Present Illness H&P Date: 07/05/18 CHIEF COMPLAINT: Hiatal hernia with gastroesophageal reflux disease. HISTORY OF PRESENT ILLNESS: The patient is a 67-year-old female who presents with hiatal hernia. She has completed an esophageal manometry including upper endoscopy workup. Now she presents for surgical intervention. PAST MEDICAL HISTORY: Please see list. PAST SURGICAL HISTORY: Please see list. MEDICATIONS: Please see list. ALLERGIES: Please see list. SOCIAL HISTORY: No illicit drug use FAMILY HISTORY: No reports of Crohn disease or ulcerative colitis. REVIEW OF ORGAN SYSTEMS: CONSTITUTIONAL: No reports of fevers or chills. GI: Denies any blood in stools or constipation. PHYSICAL EXAM: VITAL SIGNS: Stable GENERAL: Well-developed pleasant and in no acute distress. HEENT: No scleral icterus. Extraocular movements grossly intact. Moist buccal mucosa. NECK: Supple without lymphadenopathy. CHEST: Unlabored respirations. Equal bilateral excursions. CARDIOVASCULAR: Regular rate and rhythm. Distal 2+ pulses. ABDOMEN: Soft, nondistended. No peritoneal signs. MUSCULOSKELETAL: No clubbing, cyanosis, or edema. SKIN: Well-perfused. Good skin turgor. MANOMETRY: Shows no evidence of achalasia or scleroderma. ASSESSMENT: 1. Diaphragmatic hiatal hernia with severe gastroesophageal reflux disease. PLAN: 1. Recommend proceeding with a robotic paraesophageal hiatal hernia with mesh placement. 2. Benefits and risks of surgical intervention was discussed including possibility of open technique. 3. Inpatient hospitalization recommended of 2 nights 4. DVT prophylaxis. 5. Antibiotic prophylaxis. 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 SKIN CA, BASAL CELL. MENIERE'S. SJOGREN'S. Aneurysm Rt side of brain- monitoring. 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 related to scar tissue History of Any Multi-Drug Resistant Organisms: None Reported Past Surgical History: Appendectomy, Breast Surgery, Hysterectomy, Orthopedic Surgery, Tonsillectomy Additional Past Surgical History / Comment(s): CHAUNCEY BREAST BX. EXC GANGLION CYST , carpal tunnel LT WRIST, Tendon surgery rt hip. LOOP RECORDER 2017. Past Anesthesia/Blood Transfusion Reactions: Previous Problems w/ Anesthesia, Family History of Problems w/ Anesthesia, Motion Sickness, Postoperative Nausea & Vomiting (PONV) Additional Past Anesthesia/Blood Transfusion Reaction / Comment(s): general anesthesia caused hallucinations for 3 days after hip surgery, LIDOCAINE CAUSES HEART TO RACE; SLOW TO AWAKEN. DAUGHTER AND SISTER HAVE PONV. Smoking Status: Former smoker - Past Family History Mother Family Medical History: Deep Vein Thrombosis (DVT) Father Family Medical History: Cancer Medications and Allergies Home Medications Medication Instructions Recorded Confirmed Type ALPRAZolam 0.5 mg PO TID PRN 12/29/14 06/27/18 History DULoxetine HCL [Cymbalta] 60 mg PO DAILY 12/29/14 06/27/18 History Cyanocobalamin [Vitamin B-12 1,000 mcg IM Q30D 06/20/17 06/27/18 History Injection] Acetaminophen [Tylenol Extra 500 - 1,000 mg PO Q6H PRN 04/17/18 06/27/18 History Strength] Allergies Allergy/AdvReac Type Severity Reaction Status Date / Time Iodinated Contrast- Oral and Allergy Dyspnea Verified 06/27/18 13:04 IV Dye latex AdvReac Severe Anaphylaxis Verified 06/27/18 13:04 iv contrast AdvReac Dyspnea Uncoded 06/27/18 13:04
[~2018-07-05 12:43] MED LIST: DEXAMETHASONE SOD PHOSPHATE 10 MG/ML 1 ML VIAL IV ONE; HEPARIN SODIUM,PORCINE 5,000 UNIT/ML 1 ML VIAL SQ ONE; LIDOCAINE 1% 20 ML VIAL (10MG/ML) FOR IV START INTRADERMA PRN; MIDAZOLAM 2 MG/2 ML VIAL IV PRN; ONDANSETRON 4 MG/2 ML VIAL IVP ONE; PANTOPRAZOLE 40 MG/10 ML VIAL IV STA; SCOPOLAMINE 1.5MG/72HR PATCH TRANSDERM ONE; ceFAZolin IN SWFI 2 GM/20 ML SYRINGE IVP ONE
[2018-07-05] MEDS: LACTATED RINGERS 1,000 ML IV SCH (13:45)
[2018-07-05 14:10] LABS: Albumin 4.3 g/dL (3.5-5.0); Calcium 9.8 mg/dL (8.4-10.2); Magnesium 2.3 mg/dL (1.6-2.3); Potassium 4.8 mmol/L (3.5-5.1); Total Bilirubin 0.6 mg/dL (0.2-1.3); Total Protein 7.3 g/dL (6.3-8.2)
[2018-07-05 14:45] LABS: Basophils # (A) 0.1 k/uL (0-0.2); Basophils % (A) 1 %; Eosinophils # (A) 0.1 k/uL (0-0.7); Eosinophils % (A) 1 %; HCT 36.3 % (34.0-46.0); HGB 11.7 gm/dL (11.4-16.0); Lymphocytes # (A) 1.6 k/uL (1.0-4.8); Lymphocytes % (A) 27 %; MCH 30.8 pg (25.0-35.0); MCHC 32.3 g/dL (31.0-37.0); MCV 95.3 fL (80.0-100.0); Mean Platelet Volume 7.2; Monocytes # (A) 0.5 k/uL (0-1.0); Monocytes % (A) 8 %; Neutrophils # (A) 3.5 k/uL (1.3-7.7); Neutrophils % (A) 60 %; Platelet Count 412 k/uL (150-450); RBC 3.81 m/uL (3.80-5.40); RDW 12.2 % (11.5-15.5); WBC 5.7 k/uL (3.8-10.6)
[2018-07-05] MEDS ORDERED: MIDAZOLAM 2 MG/2 ML VIAL ONE (14:59)
[2018-07-05] MEDS ORDERED: fentaNYL (PF) 50 MCG/ML 2 ML AMP ONE (14:59)
[2018-07-05] MEDS ORDERED: ROCURONIUM BROMIDE 10 MG/ML 10 ML VIAL IV ONE (14:59)
[2018-07-05] MEDS ORDERED: KETAMINE 10 MG/ML 20 ML VIAL ONE (14:59)
[2018-07-05] MEDS ORDERED: PHENYLEPHRINE-0.9% NACL SYG 1 MG/10 ML SYRINGE ONE (14:59)
[2018-07-05] MEDS ORDERED: LIDOCAINE 1% INJ 10MG/ML (20 ML MDV) ONE (14:59)
[2018-07-05] MEDS ORDERED: PROPOFOL 10 MG/ML 20 ML VIAL IV ONE (14:59)
[2018-07-05] MEDS ORDERED: NEOSTIGMINE 1 MG/ML 10 ML VIAL ONE (14:59)
[2018-07-05] MEDS ORDERED: SUCCINYLCHOLINE CHLORIDE 100 MG/5 ML SYR IV ONE (14:59)
[2018-07-05] MEDS ORDERED: GLYCOPYRROLATE 0.2 MG/ML 2 ML VIAL ONE (14:59)
[2018-07-05] MEDS ORDERED: BUPIVACAIN-EPI 0.25%-1:200,000 30 ML VIAL SQ ONE (15:37)
[2018-07-05] MEDS ORDERED: LACTATED RINGERS 1,000 ML IV ONE (15:39)
[2018-07-05] MEDS ORDERED: diphenhydrAMINE 50 MG/ML 1 ML VIAL IVP PRN (16:55)
[2018-07-05] MEDS ORDERED: NALOXONE 0.4 MG/ML 1 ML VIAL IV PRN (16:55)
--- NOTE | 2018-07-05 16:55 | P.OP ---
Date of Procedure: 07/05/18 Description of Procedure: DESCRIPTION OF PROCEDURE(S): SURGEON: MIRELLA LIAO MD PREOPERATIVE DIAGNOSES: 1. Gastroesophageal reflux disease. 2. Paraesophageal hiatal hernia, midline. 3. Unintentional weight loss 4. Epigastric abdominal pain 5. Atrial fibrillation 6. History of cerebral aneurysm 7. Fibromyalgia 8. Sjogren's disease 9. History of a loop recorder 10. Depressive disorder 11. Anxiety disorder POSTOPERATIVE DIAGNOSES: 1. Gastroesophageal reflux disease. 2. Paraesophageal hiatal hernia, midline, 6 x 7 cm 3. Unintentional weight loss 4. Epigastric abdominal pain 5. Atrial fibrillation 6. History of cerebral aneurysm 7. Fibromyalgia 8. Sjogren's disease 9. History of a loop recorder 10. Depressive disorder 11. Anxiety disorder OPERATION: 1. Robotic-assisted da Rafita Xi laparoscopic reduction and repair of paraesophageal hiatal hernia, 6 x 7 cm, with [place] Biopatch A 8 x 8 cm. 2. Intraoperative esophagogastroduodenoscopy ANESTHESIA: General with local anesthetic. ESTIMATED BLOOD LOSS: 5 mL SPECIMENS REMOVED: None. COMPLICATIONS: None. FINDINGS: 1. Hiatal hernia, 6 x 7 cm 2. 6 x 7 cm paraesophageal incarcerated diaphragmatic hiatal hernia 3. [place] Biopatch A onlay mesh placed. 4. Intra-abdominal esophageal length 4 cm obtained with deep mediastinal dissection to thoracic arch and aorta INDICATIONS: The patient is a 67-year-old female who presents with Epigastric abdominal pain and gastroesophageal reflux disease from a symptomatic diaphragmatic hiatal hernia. Preoperative workup including upper endoscopy demonstrated a Hill grade 4 lower esophageal valve. She completed an esophageal manometry. Given the severity of her symptoms, she had elected for surgical intervention. Benefits and risks including bleeding, infection, recurrence, dysphagia, injury to the lung, need for further surgery was described at length. Informed consent was obtained. DESCRIPTION: The patient was brought into the operating room and placed in supine position. Preoperatively she had received heparin subcutaneously for DVT prophylaxis. After general induction, the abdomen was prepped and draped in standard sterile fashion. The patient had previously voided prior to coming to the operating room. Ioban draping was placed along the abdomen. A timeout protocol was confirmed with the surgical team, for which the patient's name, procedure to be performed including DVT prophylaxis with bilateral SCDs, and preoperative antibiotics were also confirmed. A robotic da Rafita Xi system was prepped and primed. At 12 cm from the xiphoid to just below the umbilicus, proposed port sites were marked with indelible marker along the left axillary line, left mid-clavicular line with each ports were marked 10 cm from each other. A 5 mm 0 degrees laparoscopic trocar entry was performed along the left upper quadrant. The abdomen was insufflated to 15 mmHg pressure he tolerated well. Diagnostic laparoscopy demonstrated no injury to bowel, viscera, or mesentery. The liver surface was remarkable for fatty liver disease. No injury had occurred to the small bowel or viscera. Next, one 8 mm robotic port was placed along the right upper abdomen. An 8-mm port was were placed along the left lateral abdominal wall. The camera 8-mm port was maintained along the epigastrium via the hernia defect. Another 12 mm port was placed along the left upper abdominal wall after exchanging the 5 mm port. Please note that the ports were placed at least 20 cm away from the target anatomy. Care was taken to check that each robotic arm were safely away from collision with the bed or the patient. At the epigastrium, a median sized Marko liver retractor was placed under direct visualization with the Iron Shovel Operator placed under the right shoulder of the patient. All robotic arms were used. The patient was repositioned in reverse Trendelenburg position at 14-degrees after lowering the bed. The robot was docked above the left side of the patient. Using a grasper for arm 3, a grasper for arm 1, including vessel sealer for arm 2, the robotic system was docked and primed as described. Instruments were interchanged by the or assistant. I had sat at the console. The gastrohepatic ligament was cleaved using a vessel sealer. Next, the phrenoesophageal ligament was mobilized and the distal esophagus was mobilized circumferentially. The left and right crura was identified. Thehiatal hernia sac was found deep into the mediastinum. Circumferentially, the hernia sac was incised with moderate mobilization of the esophagus into the mediastinum off the aorta. Care was taken to avoid any gastrotomy to the upper pole of the stomach. The measured defect was consistent with 7 cm axial length and 6 cm in width. After dissection, the distal esophagus of over 4 cm was brought into the abdominal cavity. Once the hiatus and crura was dissected, 2-0 VLOC suture was placed to reapproximate the diaphragmatic hiatus anteriorly. To buttress the repair, a [place] Biopatch A was prepared along the back table and cut in half of a hinojosa-hole fashion as to reinforce the repair as an underlay. The mesh was placed along the crural repair and tagged using horizontal mattress sutures using 2-0 VLOC. I went to the head of the bed to perform intraoperative esophagogastroduodenoscopy. I went to the head of the bed to perform intraoperative esophagogastroduodenoscopy. An Olympus gastroscope was passed through posterior oropharynx. Erosive esophagitis LA grade A was confirmed. The stomach was entered. Retroflexion of the scope confirmed a Hill grade 2 lower esophageal valve. The stomach had been desufflated. No evidence of leaks were found either of the mucosal defects of the esophagus or stomach. This concluded the endoscopic portion of the case. The robot was undocked from the patient. I re-scrubbed into the case. All instruments and pneumoperitoneum were evacuated from the abdominal cavity. Incisions were reapproximated using 4-0 Monocryl in an interrupted subcuticular fashion. Liquid glue was applied to the skin. Local anesthetic was infiltrated in all wounds for postop analgesia. Multiple intra-abdominal films were obtained. At the end of the procedure, needle, sponge, and instrument count was verified correct by the surgical dressing maker. The patient had tolerated the procedure well and was taken to the postanesthesia unit in stable condition. Intraoperative films were reviewed with the patient's family who was pleased with the level of care. Console time 47 minutes
[2018-07-05] MEDS: HYDROmorphone 1 MG/ML 1 ML SYRINGE IVP ONE ×4 (17:05→17:26)
[2018-07-05] MEDS: KETOROLAC 30 MG/ML 1 ML VIAL IVP SCH ×2 (17:17→22:24)
[2018-07-05] MEDS ORDERED: TRIMETHOBENZAMIDE 100 MG/ML 2 ML VIAL IM PRN (17:59)
--- NOTE | 2018-07-05 17:59 | P.PN ---
Progress Note - Text Progress Note Date: 07/05/18 Patient reports moderate nausea. Scopolamine patch not used per protocol because of her age. Recommend decadron for nausea.
[2018-07-05] MEDS ORDERED: ACETAMINOPHEN IV (For NPO) 1,000 MG in EMPTY BAG 1 BAG IVPB ONE (18:00)
[2018-07-05] MEDS: ONDANSETRON 4 MG/2 ML VIAL IVP SCH (18:03)
[2018-07-05] MEDS: METOCLOPRAMIDE 5 MG/ML 2 ML VIAL IVP SCH (18:03)
[2018-07-05] MEDS: SIMETHICONE 40 MG/0.6 ML DROPS 2,000 MG/30 ML BOTTLE PO SCH (18:09)
[2018-07-05] MEDS: HYOSCYAMINE ORAL DROPS 1.875 MG/15 ML BOTTLE PO SCH (18:10)
[2018-07-05] MEDS: 0.9% NACL WITH KCL 20 MEQ/L 1,000 ML IV SCH (18:12)
[2018-07-06] MEDS: ONDANSETRON 4 MG/2 ML VIAL IVP SCH ×3 (00:18→12:03)
[2018-07-06] MEDS: METOCLOPRAMIDE 5 MG/ML 2 ML VIAL IVP SCH ×3 (00:18→12:02)
[2018-07-06] MEDS: HYOSCYAMINE ORAL DROPS 1.875 MG/15 ML BOTTLE PO SCH ×4 (00:18→12:02)
[2018-07-06] MEDS: SIMETHICONE 40 MG/0.6 ML DROPS 2,000 MG/30 ML BOTTLE PO SCH ×3 (00:19→12:03)
[2018-07-06] MEDS: ceFAZolin IN SWFI 2 GM/20 ML SYRINGE IVP SCH ×2 (00:19→07:47)
[2018-07-06] MEDS: 0.9% NACL WITH KCL 20 MEQ/L 1,000 ML IV SCH ×2 (01:43→06:59)
[2018-07-06] MEDS: KETOROLAC 30 MG/ML 1 ML VIAL IVP SCH ×2 (04:32→12:02)
[2018-07-06] MEDS ORDERED: ACETAMINOPHEN IV (For NPO) 650 MG in EMPTY BAG 1 BAG IVPB ONE (06:14)
[2018-07-06] MEDS: LACTATED RINGERS 1,000 ML IV SCH (06:58)
[2018-07-06 06:59] LABS: Basophils % (A) 0 %; Eosinophils % (A) 0 %; HCT 32.1 % (34.0-46.0); HGB 10.3 gm/dL (11.4-16.0); Lymphocytes # (A) 0.6 k/uL (1.0-4.8); Lymphocytes % (A) 7 %; MCH 31.1 pg (25.0-35.0); MCHC 32.1 g/dL (31.0-37.0); MCV 96.9 fL (80.0-100.0); Mean Platelet Volume 6.8; Monocytes # (A) 0.5 k/uL (0-1.0); Monocytes % (A) 5 %; Neutrophils # (A) 8.1 k/uL (1.3-7.7); Neutrophils % (A) 88 %; Platelet Count 422 k/uL (150-450); RBC 3.32 m/uL (3.80-5.40); RDW 12.1 % (11.5-15.5); WBC 9.3 k/uL (3.8-10.6)
[2018-07-06 07:08] LABS: Calcium 8.9 mg/dL (8.4-10.2); Magnesium 1.9 mg/dL (1.6-2.3); Phosphorus 3.5 mg/dL (2.5-4.5); Potassium 5.3 mmol/L (3.5-5.1)
[2018-07-06] MEDS ORDERED: 0.9% NACL WITH KCL 20 MEQ/L 1,000 ML IV SCH (08:00)
[2018-07-06] MEDS ORDERED: PANTOPRAZOLE 40 MG/10 ML VIAL IV SCH (09:00)
[2018-07-06 09:13] VITALS: BP 158/69; PULSE 97; RESP 16; TEMP 98.5
--- NOTE | 2018-07-06 09:28 | FL ---
Single contrast esophagram EXAMINATION TYPE: FL esophagus cervic/pharynx DATE OF EXAM: 07/06/2018 9:20 AM COMPARISON: NONE CLINICAL HISTORY: Status post Alcides fundoplication The patient ingested contrast without difficulty or delay. Noted are changes of Alcides fundoplicatio n. There is no evidence for leak or obstruction. Small amount of residual contrast within the distal esophagus. IMPRESSION: Post-surgical change of Alcides fundoplication without evidence for leak or obstruction.
[2018-07-06] MEDS ORDERED: ALPRAZolam 0.5 MG TAB PO PRN (09:57)
--- NOTE | 2018-07-06 12:02 | P.DS ---
Providers Date of admission: 07/05/18 12:43 Expected date of discharge: 07/06/18 Attending physician: Hollie Cullen Primary care physician: [facility] Course: 67-year-old female who presented with a hiatal hernia. Patient has been having symptomatic he asked her esophageal reflux symptoms. Patient elected to proceed with a surgical intervention for the hiatal hernia. On July 05 the patient underwent a hiatal hernia repair with mesh postop esophagram showed no evidence of a leak. Patient was up ambulatory on the unit and tolerating a diet no nausea no vomiting stated plain Tylenol is effective for pain control surgical dressing sites were dry Patient was felt to be stable and appropriate to proceed with a discharge to home Impression discharge diagnosis Status post July 06 repair of a hiatal hernia with mesh for paraesophageal hernia Diaphragmatic hiatal hernia with severe esophageal reflux symptoms The above impression and plan of care have been discussed and directed by signing physician. Priscilla Damon nurse practitioner acting as scribe for signing physician. Plan - Discharge Summary Discharge Rx Participant: Yes New Discharge Prescriptions: New Simethicone 40 mg/0.6 ml Drops [Mylicon Drops] 40 mg PO Q6HR #30 ml Continue DULoxetine HCL [Cymbalta] 60 mg PO DAILY ALPRAZolam 0.5 mg PO TID PRN PRN Reason: Anxiety Acetaminophen [Tylenol Extra Strength] 500 - 1,000 mg PO Q6H PRN PRN Reason: Pain Discontinued Cyanocobalamin [Vitamin B-12 Injection] 1,000 mcg IM Q30D Discharge Medication List ALPRAZolam 0.5 mg PO TID PRN 12/29/14 [History] DULoxetine HCL [Cymbalta] 60 mg PO DAILY 12/29/14 [History] Acetaminophen [Tylenol Extra Strength] 500 - 1,000 mg PO Q6H PRN 04/17/18 [ History] Simethicone 40 mg/0.6 ml Drops [Mylicon Drops] 40 mg PO Q6HR #30 ml 07/06/18 [Rx ] Follow up Appointment(s)/Referral(s): Hollie Cullen MD [STAFF PHYSICIAN] - 07/10/18 10:00 am Patient Instructions/Handouts: Laparoscopic Hiatal Hernia Repair (DC) Activity/Diet/Wound Care/Special Instructions: May shower. No bath tub soaks. No straws. No carbonated beverages. Liquid diet only for 2 weeks. No lifting over 4 pounds in 4 weeks. Protein shakes 3 times daily. Discharge Disposition: HOME SELF-CARE
[2018-07-07] MEDS ORDERED: BISACODYL 5 MG TABLET.DR PO PRN (08:00)
== END 2018-07-06 12:52 | disposition home or self-care (01) | DRG 327 ==
LOC: 2ORMAIN 12:43 → 6PED 17:35
PROVIDERS: ADMIT Surgery Plastic and Reconstructive Surgery; ATTEND Surgery Plastic and Reconstructive Surgery
PROC: 8E0W4CZ Robotic Assisted Procedure of Trunk Region, Percutaneous Endoscopic Approach (ICD-10-PCS; 2018-07-05)
PROC: 0DJ08ZZ Inspection of Upper Intestinal Tract, Via Natural or Artificial Opening Endoscopic (ICD-10-PCS; 2018-07-05)
PROC: 0BUT4JZ Supplement Diaphragm with Synthetic Substitute, Percutaneous Endoscopic Approach (ICD-10-PCS; principal; 2018-07-05 14:40)
DX: K44.0 Diaphragmatic hernia with obstruction, without gangrene (principal); K22.10 Ulcer of esophagus without bleeding; K55.1 Chronic vascular disorders of intestine; Z68.1 Body mass index [BMI] 19.9 or less, adult; F32.9 Major depressive disorder, single episode, unspecified; F41.9 Anxiety disorder, unspecified; I48.91 Unspecified atrial fibrillation; K21.9 Gastro-esophageal reflux disease without esophagitis; K76.0 Fatty (change of) liver, not elsewhere classified; M35.00 Sjogren syndrome, unspecified; M79.7 Fibromyalgia; Z85.828 Personal history of other malignant neoplasm of skin; Z87.891 Personal history of nicotine dependence; Z90.710 Acquired absence of both cervix and uterus; N05.9 Unspecified nephritic syndrome with unspecified morphologic changes; Z88.0 Allergy status to penicillin; Z88.2 Allergy status to sulfonamides; Z88.8 Allergy status to other drugs, medicaments and biological substances; Z88.4 Allergy status to anesthetic agent; Z91.041 Radiographic dye allergy status; Z91.040 Latex allergy status; Z79.899 Other long term (current) drug therapy; Z80.9 Family history of malignant neoplasm, unspecified; R11.0 Nausea; R63.4 Abnormal weight loss; I67.1 Cerebral aneurysm, nonruptured; H81.09 Meniere's disease, unspecified ear
CPT/HCPCS: 74210; 80051; 80053; 82310; 82565; 83735; 84100; 84520; 85025

== ENCOUNTER → 2018-08-03 | Outpatient (CLI) | payer MEDICARE, BC ==
--- NOTE | 2018-08-03 10:24 | FL ---
EXAMINATION TYPE: FL barium swallow DATE OF EXAM: 08/03/2018 CLINICAL HISTORY: Dysphagia after hiatal hernia surgery July 05, 2018. TECHNIQUE: A single contrast esophagram is performed utilizing thin and thick barium. A total of 1 minute and 59 seconds of fluoroscopic time was utilized during procedure. 39 fluoroscopic images were saved. COMPARISON: None FINDINGS: The esophagus shows normal motility, however there is delayed emptying into the stomach thr ough the narrowed distal esophagus from an incomplete stricture. This is seen persistently throughout the examination resulting in moderate intraesophageal reflux. No evidence of recurrent hernia or gas troesophageal reflux. No evidence of contrast extravasation to suggest postsurgical leak. IMPRESSION: Partial nonobstructing short segment distal esophageal stricture just above the gastroeso phageal junction resulting in moderate intraesophageal reflux.
[2018-08-03 10:48] LABS: Amylase 97 U/L (30-110); Lipase 234 U/L (23-300)
== END | disposition home or self-care (01) ==
LOC: RADFLWHC 08:48
PROVIDERS: ATTEND Surgery Plastic and Reconstructive Surgery
DX: K21.9 Gastro-esophageal reflux disease without esophagitis (principal); R10.9 Unspecified abdominal pain; Z88.5 Allergy status to narcotic agent; Z91.040 Latex allergy status; Z88.0 Allergy status to penicillin; Z88.2 Allergy status to sulfonamides
CPT/HCPCS: 36415; 74220; 82150; 83690

== ENCOUNTER → 2018-08-10 | Outpatient (CLI) | payer MEDICARE, BC ==
--- NOTE | 2018-08-10 11:09 | NM ---
EXAMINATION TYPE: NM hepatobiliary w EF DATE OF EXAM: 08/10/2018 COMPARISON: NONE INDICATION: K 81.9 epigastric pain, abdominal pain heartburn and reflux constipation TECHNIQUE: After the intravenous administration of 4.96 mCi Tc 99m Mebrofenin hepatobiliary scintigra phy is performed. Images were obtained immediately post injection. FINDINGS: There is prompt uptake and excretion of radiotracer by the liver. Extrahepatic ducts are identified at 9 minutes. The gallbladder is visualized within 12 minutes. Small bowel activity is noted within 24 minutes. At one hour 8 ounces of oral ensure plus is given to mimic CCK and gallbladder ejection fraction is c alculated at 77 %, which is in the normal range. (Normal >35% and <80%.). IMPRESSION: 1. Normal hepatobiliary scan
--- NOTE | 2018-08-10 13:33 | US ---
EXAMINATION TYPE: US gallbladder DATE OF EXAM: 08/10/2018 COMPARISON: CT 2018 CLINICAL HISTORY: K81.9 - Cholecystitis. Intermittent abdomen pain x couple years EXAM MEASUREMENTS: Liver Length: 14.7 cm Gallbladder Wall: 0.2 cm CBD: 0.5 cm Right Kidney: 9.4 x 3.6 x 3.9 cm Pancreas: wnl Liver: wnl Gallbladder: wnl Evidence for sonographic Garcia's sign: no CBD: wnl Right Kidney: wnl IMPRESSION: 1. Normal right upper quadrant ultrasound
== END | disposition home or self-care (01) ==
LOC: RADNMMAIN 07:04
PROVIDERS: ATTEND Surgery Plastic and Reconstructive Surgery
DX: R13.10 Dysphagia, unspecified (principal); K44.9 Diaphragmatic hernia without obstruction or gangrene; Z87.19 Personal history of other diseases of the digestive system; Z88.0 Allergy status to penicillin; Z88.2 Allergy status to sulfonamides; Z88.5 Allergy status to narcotic agent; Z88.8 Allergy status to other drugs, medicaments and biological substances; Z91.040 Latex allergy status
CPT/HCPCS: 76705; 78226; A9537

== ENCOUNTER 2018-08-17 11:37 | Day surgery (SDC) | payer MEDICARE, BC ==
[2018-08-15 09:53] VITALS: BMI 18.6
--- NOTE | 2018-08-17 05:09 | P.GSHP ---
History of Present Illness H&P Date: 08/17/18 CHIEF COMPLAINT: GERD HISTORY OF PRESENT ILLNESS: The patient is a 68-year-old female who presents reports gastroesophageal reflux disease. Upper endoscopy was offered for further evaluation and management. PAST MEDICAL HISTORY: Please see list. PAST SURGICAL HISTORY: Please see list. MEDICATIONS: Please see list. ALLERGIES: Please see list. SOCIAL HISTORY: No illicit drug use FAMILY HISTORY: No reports of Crohn disease or ulcerative colitis. REVIEW OF ORGAN SYSTEMS: CONSTITUTIONAL: No reports of fevers or chills. GI: Denies any blood in stools or constipation. PHYSICAL EXAM: VITAL SIGNS: Stable GENERAL: Well-developed and pleasant in no acute distress. HEENT: No scleral icterus. Extraocular movements grossly intact. Moist buccal mucosa. NECK: Supple without lymphadenopathy. CHEST: Unlabored respirations. Equal bilateral excursions. CARDIOVASCULAR: Regular rate and rhythm. Distal 2+ pulses. ABDOMEN: Soft, nondistended. MUSCULOSKELETAL: No clubbing, cyanosis, or edema. ASSESSMENT: 1. Gastroesophageal reflux disease PLAN: 1. 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 SKIN CA- BASAL CELL. MENIERE'S. SJOGREN'S. 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 diff swallowing/chokes, "narrowing in lower colon" History of Any Multi-Drug Resistant Organisms: None Reported Past Surgical History: Appendectomy, Breast Surgery, Cardiac Ablation, Heart Catheterization, Hysterectomy, Orthopedic Surgery, Tonsillectomy Additional Past Surgical History / Comment(s): CHAUNCEY BREAST BX. EXC GANGLION CYST , carpal tunnel LT WRIST, Tendon surgery rt hip. LOOP RECORDER 2017. hiatal hernia surgery 06/2018, had swelling of face and lips and had mouth sores after last 3 surgeries Past Anesthesia/Blood Transfusion Reactions: Previous Problems w/ Anesthesia, Family History of Problems w/ Anesthesia, Motion Sickness, Postoperative Nausea & Vomiting (PONV) Additional Past Anesthesia/Blood Transfusion Reaction / Comment(s): general anesthesia caused hallucinations for 3 days after hip surgery, LIDOCAINE CAUSES HEART TO RACE; SLOW TO AWAKEN. DAUGHTER AND SISTER HAVE PONV. Smoking Status: Former smoker - Past Family History Mother Family Medical History: Deep Vein Thrombosis (DVT) Father Family Medical History: Cancer Medications and Allergies Home Medications Medication Instructions Recorded Confirmed Type ALPRAZolam 0.5 mg PO TID PRN 12/29/14 08/15/18 History DULoxetine HCL [Cymbalta] 60 mg PO DAILY 12/29/14 08/15/18 History Acetaminophen [Tylenol Extra 500 - 1,000 mg PO Q6H PRN 04/17/18 08/15/18 History Strength] Allergies Allergy/AdvReac Type Severity Reaction Status Date / Time adhesive tape Allergy Rash/Hives Verified 08/15/18 09:43 codeine Allergy "felt like Verified 08/15/18 09:43 i was flying around the room" Iodinated Contrast- Oral and Allergy Dyspnea Verified 08/15/18 09:43 IV Dye meperidine [From Demerol] Allergy Rash/Hives Verified 08/15/18 09:43 morphine Allergy FELT LIKE Verified 08/15/18 09:43 I WAS BEING PULLED IN TO BED Penicillins Allergy Unknown Verified 08/15/18 09:43 Sulfa (Sulfonamide Allergy Unknown Verified 08/15/18 09:43 Antibiotics) latex AdvReac Severe Anaphylaxis Verified 08/15/18 09:43 prednisone AdvReac Confusion Verified 08/15/18 09:43 iv contrast AdvReac Dyspnea Uncoded 08/15/18 09:43
[~2018-08-17 11:37] MED LIST changes: -DEXAMETHASONE SOD PHOSPHATE 10 MG/ML 1 ML VIAL IV ONE; -HEPARIN SODIUM,PORCINE 5,000 UNIT/ML 1 ML VIAL SQ ONE; +LACTATED RINGERS 1,000 ML IV SCH; -LIDOCAINE 1% 20 ML VIAL (10MG/ML) FOR IV START INTRADERMA PRN; -MIDAZOLAM 2 MG/2 ML VIAL IV PRN; -ONDANSETRON 4 MG/2 ML VIAL IVP ONE; -PANTOPRAZOLE 40 MG/10 ML VIAL IV STA; -SCOPOLAMINE 1.5MG/72HR PATCH TRANSDERM ONE; -ceFAZolin IN SWFI 2 GM/20 ML SYRINGE IVP ONE
[2018-08-17 12:05] VITALS: TEMP 98.4
[2018-08-17] MEDS ORDERED: LIDOCAINE 1% 20 ML VIAL (10MG/ML) FOR IV START INTRADERMA ONE (12:19)
[2018-08-17] MEDS ORDERED: ONDANSETRON 4 MG/2 ML VIAL IVP ONE (12:25)
[2018-08-17] MEDS ORDERED: MIDAZOLAM 2 MG/2 ML VIAL IV ONE (13:45)
[2018-08-17] MEDS ORDERED: LIDOCAINE 1% INJ 10MG/ML (20 ML MDV) ONE (13:57)
[2018-08-17] MEDS ORDERED: PROPOFOL 10 MG/ML 20 ML VIAL IV ONE (13:57)
--- NOTE | 2018-08-17 14:20 | P.PCN ---
Date of Procedure: 08/17/18 Description of Procedure: PREOPERATIVE DIAGNOSIS: Dysphagia. Gastroesophageal reflux disease History of hiatal hernia repair Lower esophageal sphincter hypertension POSTOPERATIVE DIAGNOSIS: Dysphagia. Gastroesophageal reflux disease History of hiatal hernia repair Lower esophageal sphincter hypertensionn OPERATION: Esophagogastroduodenoscopy with rigid dilator over the guidewire, 51 Fr SURGEON: Hollie Cullen MD ANESTHESIA: MAC. INDICATIONS: The patient is a 68-year-old female who presents with a history of dysphagia. Esophagram demonstrates hypertensive GE junction. Benefits and risks of the procedure were described. Informed consent was obtained. DESCRIPTION: The patient was brought into the endoscopy suite and laid in the left lateral decubitus position. After a timeout was confirmed, the procedure was initiated. An Olympus gastroscope was passed and the stomach was entered. No gastritis was identified. The scope was advanced to the duodenum which was unremarkable. Retroflexion the scope confirmed a Hill grade 1 lower esophageal valve. Next using an Colombian rigid dilator, a guidewire was placed through the pediatric gastroscope. Next the scope was withdrawn. A 51-Uzbek rigid Colombian dilator was passed carefully along the posterior oropharynx to 50 cm and left in place for 2-3 minutes stretch. The dilator was withdrawn including the guidewire. The scope was reentered along the posterior oropharynx with no findings of full-thickness tear of the lower esophageal sphincter. The GI tract was desufflated. The patient tolerated the procedure well. FINDINGS: Squamocolumnar junction unremarkable at 40 cm. Colombian rigid dilator 51-Uzbek completed. No gastritis. Hill grade 1 lower esophageal valve. No recurrent hiatal hernia No LA grade A esophagitis. RECOMMENDATIONS: Upper endoscopy as needed Plan - Discharge Summary New Discharge Prescriptions: New Bisacodyl [Dulcolax] 5 mg PO DAILY #20 tablet. Polyethylene Glycol 3350 [Miralax] 17 gm PO DAILY #255 gm No Action DULoxetine HCL [Cymbalta] 60 mg PO DAILY ALPRAZolam 0.5 mg PO TID PRN PRN Reason: Anxiety Acetaminophen [Tylenol Extra Strength] 500 - 1,000 mg PO Q6H PRN PRN Reason: Pain Discharge Medication List ALPRAZolam 0.5 mg PO TID PRN 12/29/14 [History] DULoxetine HCL [Cymbalta] 60 mg PO DAILY 12/29/14 [History] Acetaminophen [Tylenol Extra Strength] 500 - 1,000 mg PO Q6H PRN 04/17/18 [ History] Bisacodyl [Dulcolax] 5 mg PO DAILY #20 tablet.dr 08/17/18 [Rx] Polyethylene Glycol 3350 [Miralax] 17 gm PO DAILY #255 gm 08/17/18 [Rx] Follow up Appointment(s)/Referral(s): Hollie Cullen MD [STAFF PHYSICIAN] - 09/04/18 Patient Instructions/Handouts: Esophageal Dilation (IP) Activity/Diet/Wound Care/Special Instructions: Soft diet. Warm beverages advised. Avoid meats such as pork, ham, and roast beef Discharge Disposition: HOME SELF-CARE
[2018-08-17 14:41] VITALS: RESP 18
[2018-08-17 14:43] VITALS: BP 150/81; PULSE 73
== END 2018-08-17 16:01 | disposition home or self-care (01) ==
LOC: ORWHC2ENDO 11:37
PROVIDERS: ATTEND Surgery Plastic and Reconstructive Surgery
DX: K92.89 Other specified diseases of the digestive system (principal); R13.10 Dysphagia, unspecified; I48.91 Unspecified atrial fibrillation; K21.9 Gastro-esophageal reflux disease without esophagitis; M79.7 Fibromyalgia; M19.90 Unspecified osteoarthritis, unspecified site; N05.9 Unspecified nephritic syndrome with unspecified morphologic changes; Z85.828 Personal history of other malignant neoplasm of skin; I67.1 Cerebral aneurysm, nonruptured; Z87.891 Personal history of nicotine dependence; F41.9 Anxiety disorder, unspecified; Z79.899 Other long term (current) drug therapy; Z91.041 Radiographic dye allergy status; Z91.040 Latex allergy status; Z88.5 Allergy status to narcotic agent; Z88.0 Allergy status to penicillin; Z88.2 Allergy status to sulfonamides; Z88.8 Allergy status to other drugs, medicaments and biological substances; Z91.09 Other allergy status, other than to drugs and biological substances
CPT/HCPCS: 43248; J2250; J2405; J2001; J2704; 43249

== ENCOUNTER → 2018-12-12 | Outpatient (CLI) | payer MEDICARE, BC ==
--- NOTE | 2018-12-12 11:31 | FL ---
EXAMINATION TYPE: FL barium swallow DATE OF EXAM: 12/12/2018 COMPARISON: 08/03/2018 HISTORY: History of hiatal hernia surgery, abdominal pain TECHNIQUE: A double air contrast esophagram study is performed. FINDINGS: Contrast passes through the esophagus without hesitancy. No intraluminal or extramural defe cts are evident. The gastroesophageal junction opens to normal caliber passes contrast without signif icant hesitancy. No extravasation is evident. No prolapse is identified. No free air is noted during this examination. Overhead radiographs were obtained which are unremarkable. IMPRESSIONS: 1. Normal esophagram.
== END | disposition home or self-care (01) ==
LOC: RADFLWHC 10:03
PROVIDERS: ATTEND Surgery Plastic and Reconstructive Surgery
DX: K21.9 Gastro-esophageal reflux disease without esophagitis (principal); R13.10 Dysphagia, unspecified; Z88.0 Allergy status to penicillin; Z88.2 Allergy status to sulfonamides; Z88.5 Allergy status to narcotic agent; Z88.8 Allergy status to other drugs, medicaments and biological substances
CPT/HCPCS: 74220

== ENCOUNTER → 2019-03-20 | Outpatient (CLI) | payer MEDICARE, BC ==
[2019-03-20 12:52] LABS: African American GFR (CKD) 78 (>60 ml/min/1.73 sqM); Anion Gap 9 mmol/L; Blood Urea Nitrogen 12 mg/dL (7-17); Calcium 9.4 mg/dL (8.4-10.2); Carbon Dioxide 29 mmol/L (22-30); Chloride 98 mmol/L (98-107); Glucose 141 mg/dL (74-99); Potassium 4.4 mmol/L (3.5-5.1); Sodium 136 mmol/L (137-145)
== END | disposition home or self-care (01) ==
LOC: LABWHC1 03-19 10:20
PROVIDERS: ATTEND Internal Medicine Clinical Cardiac Electrophysiology
DX: R07.9 Chest pain, unspecified (principal)
CPT/HCPCS: 36415; 80048

== ENCOUNTER → 2019-03-20 | Outpatient (CLI) | payer MEDICARE, BC ==
--- NOTE | 2019-03-20 14:48 | CT ---
EXAMINATION TYPE: CT angio chest DATE OF EXAM: 03/20/2019 COMPARISON: None HISTORY: Chest pain, AAA, assess AORTA CT DLP: 559 mGycm CONTRAST: CTA thoracic aorta with 3-D reconstruction is performed and without and with IV Contrast, patient inj ected with 100 ml mL of Isovue 300. Contrast CTA of the thoracic aorta was performed from the lung apex through the upper abdomen. 3D re construction imaging obtained at a separate workstation. CT Chest: THORACIC AORTA: No evidence for thoracic aortic aneurysm. Mild atheromatous changes seen. There is n o evidence for dissection or periaortic collection. LUNGS: The lungs are clear and free of infiltrate or atelectasis. No pulmonary nodule or mass is det ected. No pleural effusion or CT evidence of interstitial lung disease. MEDIASTINUM: No evidence for mediastinal hematoma. The heart is not enlarged. No evidence for med iastinal mass or adenopathy. HILAR STRUCTURES: No evidence for mass. No hilar adenopathy is appreciated. OTHER: No significant abnormality. IMPRESSION- No evidence for aneurysm.
== END | disposition home or self-care (01) ==
LOC: RADCTMAIN 12:24
PROVIDERS: ATTEND Internal Medicine Clinical Cardiac Electrophysiology
DX: R07.9 Chest pain, unspecified (principal); M54.9 Dorsalgia, unspecified
CPT/HCPCS: 71275; 36415; Q9967

== ENCOUNTER → 2019-05-03 | Outpatient (CLI) | payer MEDICARE, BC ==
--- NOTE | 2019-05-03 13:22 | CT ---
EXAMINATION TYPE: CT sinus wo con DATE OF EXAM: 05/03/2019 COMPARISON: None HISTORY: 68-year-old female Chronic sinusitis CT DLP: 628.7 mGycm Automated exposure control for dose reduction was used. TECHNIQUE: Noncontrast axial views of the paranasal sinuses were obtained. Coronal reconstructions pe rformed. FINDINGS: PARANASAL SINUSES: Trace scattered mucosal thickening anterior ethmoid air cells and along the roof of the right maxilla ry sinus. The frontal and sphenoid sinuses are clear and well pneumatized. There is no air-fluid level. Reactive elisabeth- osteogenesis is not seen. There is no destruction of the osseous pink of the paranasal sinuses. THE NASAL CAVITY: The osteomeatal complexes are patent. There is rightward nasal septal deviation. The imaged brain shows mild to moderate cerebral cortical atrophy. Asymmetric prominence to the right lateral ventricle probably congenital variation. Benign basal ganglia calcifications on the right. Orbits and globes appear intact. Mastoid air cells and middle ear cavities are well pneumatized. Reformatted images confirm above findings. IMPRESSION: Scattered trace mucosal thickening anterior ethmoid air cells and along the roof of the right maxilla ry sinus. Rightward nasal septal deviation.
== END | disposition home or self-care (01) ==
LOC: RADCTMAIN 11:12
PROVIDERS: ATTEND Otolaryngology
DX: J34.2 Deviated nasal septum (principal)
CPT/HCPCS: 70486

== ENCOUNTER → 2019-05-29 | Day surgery (SDC) | payer MEDICARE, BC ==
[2019-05-28 10:11] VITALS: BMI 21.2
[~2019-05-29] MED LIST changes: +DEXAMETHASONE SOD PHOSPHATE 10 MG/ML 1 ML VIAL IV ONE; +LIDOCAINE 1% 20 ML VIAL (10MG/ML) FOR IV START INTRADERMA PRN; +LIDOCAINE 1% INJ 10MG/ML (20 ML MDV) ONE; +MIDAZOLAM 2 MG/2 ML VIAL IV PRN; +ONDANSETRON 4 MG/2 ML VIAL IVP ONE; +PROPOFOL 10 MG/ML 20 ML VIAL IV ONE; +fentaNYL (PF) 50 MCG/ML 2 ML AMP IV PRN
[2019-05-29 09:35] VITALS: TEMP 98.2
--- NOTE | 2019-05-29 10:07 | P.PCN ---
Date of Procedure: 05/29/19 Description of Procedure: PREOPERATIVE DIAGNOSIS: Gastroesophageal reflux disease History of hiatal hernia Epigastric abdominal pain POSTOPERATIVE DIAGNOSIS: Gastroesophageal reflux disease with erosive esophagitis History of hiatal hernia Epigastric abdominal pain OPERATION: Esophagogastroduodenoscopy SURGEON: Hollie Cullen MD ANESTHESIA: MAC. INDICATIONS: The patient is a 68-year-old female who presents with a history of epigastric abdominal pain, and gastroesophageal reflux disease. Benefits and risks of the procedure were described. Informed consent was obtained. DESCRIPTION: The patient was brought into the endoscopy suite and laid in the left lateral decubitus position. An Olympus gastroscope was passed along the posterior oropharynx down to the distal esophagus where the squamocolumnar junction was encountered at 38 cm from the incisors. The stomach was entered and no bile re flux was found. Additional findings are listed below. Biopsies with cold forceps were obtained of the antrum. The first through third portion of the duodenum was examined and unremarkable. Retroflexion of the scope confirmed Hill grade 3 lower esophageal valve. The squamocolumnar junction demonstrated LA grade B erosive esophagitis. The stomach was desufflated. The patient tolerated the procedure well. FINDINGS: Squamocolumnar junction 38 cm from the incisors. Diaphragmatic hiatus at 38 cm. Hill grade 3 lower esophageal valve. LA grade B erosive esophagitis. No active duodenitis. RECOMMENDATIONS: Upper endoscopy as needed.
--- NOTE | 2019-05-29 10:19 | P.GSHP ---
History of Present Illness H&P Date: 05/29/19 CHIEF COMPLAINT: GERD and change in bowel habits HISTORY OF PRESENT ILLNESS: The patient is a 68-year-old female who presents with gastroesophageal reflux disease and change in bowel habits. Upper and lower endoscopy were offered for further evaluation and management. PAST MEDICAL HISTORY: Please see list. PAST SURGICAL HISTORY: Please see list. MEDICATIONS: Please see list. ALLERGIES: Please see list. SOCIAL HISTORY: No illicit drug use FAMILY HISTORY: No reports of Crohn disease or ulcerative colitis. REVIEW OF ORGAN SYSTEMS: CONSTITUTIONAL: No reports of fevers or chills. GI: Denies any blood in stools or constipation. PHYSICAL EXAM: VITAL SIGNS: Stable GENERAL: Well-developed pleasant in no acute distress. HEENT: No scleral icterus. Extraocular movements grossly intact. Moist buccal mucosa. NECK: Supple without lymphadenopathy. CHEST: Unlabored respirations. Equal bilateral excursions. CARDIOVASCULAR: Regular rate and rhythm. Distal 2+ pulses. ABDOMEN: Soft, nondistended. MUSCULOSKELETAL: No clubbing, cyanosis, or edema. ASSESSMENT: 1. Gastroesophageal reflux disease 2. Change in bowel habits PLAN: 1. 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 SKIN CA, BASAL CELL. MENIERE'S. SJOGREN'S. 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 related to scar tissue History of Any Multi-Drug Resistant Organisms: None Reported Past Surgical History: Appendectomy, Breast Surgery, Hysterectomy, Orthopedic Surgery, Tonsillectomy Additional Past Surgical History / Comment(s): CHAUNCEY BREAST BX. EXC GANGLION CYST, carpal tunnel LT WRIST, Tendon surgery rt hip. LOOP RECORDER 2017. Past Anesthesia/Blood Transfusion Reactions: Previous Problems w/ Anesthesia, Family History of Problems w/ Anesthesia, Motion Sickness, Postoperative Nausea & Vomiting (PONV) Additional Past Anesthesia/Blood Transfusion Reaction / Comment(s): general anesthesia caused hallucinations for 3 days after hip surgery, LIDOCAINE CAUSES HEART TO RACE; SLOW TO AWAKEN. DAUGHTER AND SISTER HAVE PONV. Smoking Status: Former smoker - Past Family History Mother Family Medical History: Deep Vein Thrombosis (DVT) Father Family Medical History: Cancer Medications and Allergies Home Medications Medication Instructions Recorded Confirmed Type ALPRAZolam 0.5 mg PO TID PRN 12/29/14 05/29/19 History DULoxetine HCL [Cymbalta] 60 mg PO DAILY 12/29/14 05/29/19 History Acetaminophen [Tylenol Extra 500 - 1,000 mg PO Q6H PRN 04/17/18 05/29/19 History Strength] Meclizine [Antivert] 25 mg PO DAILY 05/28/19 05/29/19 History Triamterene-Hctz 37.5-25Mg 1 tab PO DAILY 05/28/19 05/29/19 History [Maxzide 37.5-25] Allergies Allergy/AdvReac Type Severity Reaction Status Date / Time adhesive tape Allergy Rash/Hives Verified 05/28/19 10:03 codeine Allergy "felt like Verified 05/28/19 10:03 i was flying around the room" Iodinated Contrast Media Allergy Dyspnea Verified 05/28/19 10:03 [Iodinated Contrast- Oral and IV Dye] meperidine [From Demerol] Allergy Rash/Hives Verified 05/28/19 10:03 morphine Allergy FELT LIKE Verified 05/28/19 10:03 I WAS BEING PULLED IN TO BED Penicillins Allergy Unknown Verified 05/28/19 10:03 Sulfa (Sulfonamide Allergy Unknown Verified 05/28/19 10:03 Antibiotics) latex AdvReac Severe Anaphylaxis Verified 05/28/19 10:03 prednisone AdvReac Confusion Verified 05/28/19 10:03 iv contrast AdvReac Dyspnea Uncoded 05/28/19 10:03 Surgical - Exam Vital Signs Temp Pulse Resp BP Pulse Ox 98.2 F 73 16 153/69 98 05/29/19 09:33 05/29/19 09:33 05/29/19 09:33 05/29/19 09:33 05/29/19 09:33
--- NOTE | 2019-05-29 10:23 | P.PCN ---
Date of Procedure: 05/29/19 Description of Procedure: PREOPERATIVE DIAGNOSIS: Change in bowel habits History of diverticulosis POSTOPERATIVE DIAGNOSIS: Change in bowel habits Diverticulosis, scattered. OPERATION: Colonoscopy to the ileocecal valve and appendiceal orifice. SURGEON: Hollie Cullen MD. ANESTHESIA: MAC. INDICATIONS: The patient is a 68-year-old female who presents for change in bowel habits. Benefits and risks were described and informed consent was obtained. DESCRIPTION OF PROCEDURE: The patient had undergone Suprep. She had been brought into the operating room and laid in the left lateral decubitus position. After adequate intravenous sedation, the rectum was examined with 2% lidocaine jelly. No external hemorrhoids were encountered. The rectal tone was within normal limits. No lesions were palpated in the rectal vault. An Olympus colonoscope was advanced until the ileocecal valve and appendiceal orifice were clearly viewed. The prep was fair clear visualization of the mucosal folds. The scope was removed with visualization of each mucosal fold. Scattered diverticulosis was encountered wi th highly redundant torturous colon of the sigmoid. No colonic polyps were found. No evidence of focal colitis was found. Retroflexion of the scope demonstrated grade 1 internal hemorrhoids without active bleeding or inflammation. The colon was desufflated. The patient had tolerated the procedure well. Withdrawal time was over 6 minutes. FINDINGS: Aronchick preparation quality scale 2 (1-5) Internal hemorrhoids, grade 1 No external prolapsed hemorrhoids. No arteriovenous malformations. No adenomatous polyps. No focal colitis. Severe redundancy of sigmoid colon diverticulosis RECOMMENDATIONS: Lower endoscopy in 5 years, 2023 or Cologuard Plan - Discharge Summary Discharge Rx Participant: No New Discharge Prescriptions: No Action DULoxetine HCL [Cymbalta] 60 mg PO DAILY ALPRAZolam 0.5 mg PO TID PRN PRN Reason: Anxiety Acetaminophen [Tylenol Extra Strength] 500 - 1,000 mg PO Q6H PRN PRN Reason: Pain Triamterene-Hctz 37.5-25Mg [Maxzide 37.5-25] 1 tab PO DAILY Meclizine [Antivert] 25 mg PO DAILY Discharge Medication List ALPRAZolam 0.5 mg PO TID PRN 12/29/14 [History] DULoxetine HCL [Cymbalta] 60 mg PO DAILY 12/29/14 [History] Acetaminophen [Tylenol Extra Strength] 500 - 1,000 mg PO Q6H PRN 04/17/18 [History] Meclizine [Antivert] 25 mg PO DAILY 05/28/19 [History] Triamterene-Hctz 37.5-25Mg [Maxzide 37.5-25] 1 tab PO DAILY 05/28/19 [History] Follow up Appointment(s)/Referral(s): Hollie Cullen MD [STAFF PHYSICIAN] - 06/11/19 Patient Instructions/Handouts: Diverticulosis Diet (GEN), Diverticulosis (DC) Activity/Diet/Wound Care/Special Instructions: Repeat colonoscopy in 5 years, 2023 of Cologuard Discharge Disposition: HOME SELF-CARE
[2019-05-29 10:46] VITALS: BP 160/70; PULSE 64; RESP 18
== END | disposition home or self-care (01) ==
LOC: ORWHC2ENDO 09:06
PROVIDERS: ATTEND Surgery Plastic and Reconstructive Surgery
DX: K21.0 Gastro-esophageal reflux disease with esophagitis (principal); K44.9 Diaphragmatic hernia without obstruction or gangrene; K57.90 Diverticulosis of intestine, part unspecified, without perforation or abscess without bleeding; I48.91 Unspecified atrial fibrillation; M19.90 Unspecified osteoarthritis, unspecified site; M35.00 Sjogren syndrome, unspecified; M79.7 Fibromyalgia; Z79.899 Other long term (current) drug therapy; Z85.828 Personal history of other malignant neoplasm of skin; Z87.891 Personal history of nicotine dependence; Z88.0 Allergy status to penicillin; Z88.2 Allergy status to sulfonamides; Z88.5 Allergy status to narcotic agent; Z88.8 Allergy status to other drugs, medicaments and biological substances; Z91.041 Radiographic dye allergy status
CPT/HCPCS: 45378; 43235; J2405; J2001; J2704

== ENCOUNTER → 2019-06-17 | Outpatient (CLI) | payer MEDICARE, BC ==
--- NOTE | 2019-06-18 04:50 | CT ---
EXAMINATION TYPE: CT abdomen wo con DATE OF EXAM: 06/17/2019 COMPARISON: 03/22/2018 HISTORY: 68-year-old female Diverticulitis. Technologist notes: Pt sx hx hiatal hernia. TECHNIQUE: Contiguous axial scanning of the abdomen without IV contrast. Coronal and sagittal reconst ructions performed. Technologist notes: No IV, Redicat only due to allergy CT DLP: 241 mGycm Automated exposure control for dose reduction was used. FINDINGS: The heart is normal size without pericardial effusion. Lung bases clear without pleural effusion. Lack of IV contrast limits assessment of the solid abdominal viscera, lymph nodes, and vascular struc tures. Noncontrast appearance of the liver, gallbladder, adrenal glands, kidneys with extrarenal pelves, spl een, and pancreas show no gross abnormality. Scattered mild to moderate apical scarring calcifications in the abdominal aorta without aneurysm. Previously noted dilatation along the proximal portion of the third segment of the duodenum shows imp rovement though there is similar caliber narrowing of the duodenum between the SMA and abdominal aort a. There is progression of oral contrast into the colon with moderate stool burden. Small amount of focal air located between the planes of the left lower quadrant anterior abdominal wa ll at the level of the linea semilunaris, refer to axial image 43. No surrounding inflammatory fat st randing. The transverse colon hangs low in the midportion is excluded from view. The cecum is also ou tside the field of view as is the lower descending and sigmoid colon views. No evidence for diverticu litis or significant diverticular change along the visualized portions. No mesenteric or retroperitoneal lymphadenopathy. Bones: Facet arthropathy lower lumbar spine. Osteopenia. IMPRESSION: 1. ORAL CONTRAST PROGRESSED INTO THE COLON. THERE IS MODERATE STOOL BURDEN BUT ONLY THE ABDOMEN IS IM AGED. THE CECUM, LOW HANGING MID TRANSVERSE COLON, LOWER DESCENDING, AND SIGMOID COLONS ARE OUTSIDE T HE FIELD OF VIEW. 2. NO SIGNIFICANT DIVERTICULAR CHANGE OR DIVERTICULITIS SEEN ALONG THE VISUALIZED PORTIONS. 3. HOWEVER, THERE IS SMALL AMOUNT OF FOCAL AIR LOCATED BETWEEN THE PLANES OF THE LEFT LOWER QUADRANT ANTERIOR ABDOMINAL WALL AT THE LEVEL OF THE LINEA SEMILUNARIS WHICH WILL REQUIRE CLINICAL CORRELATION . AIR RELATING TO TRACKING INFECTION, IATROGENIC AIR FROM SOME TYPE OF PROCEDURE OR INJECTION, OR PEN ETRATING INJURY ARE CONSIDERATIONS.
== END | disposition home or self-care (01) ==
LOC: RADCTMAIN 16:07
PROVIDERS: ATTEND Surgery Plastic and Reconstructive Surgery
DX: R93.5 Abnormal findings on diagnostic imaging of other abdominal regions, including retroperitoneum (principal); K57.32 Diverticulitis of large intestine without perforation or abscess without bleeding; Z88.5 Allergy status to narcotic agent; Z88.8 Allergy status to other drugs, medicaments and biological substances
CPT/HCPCS: 74150

== ENCOUNTER → 2019-07-30 | Outpatient (CLI) | payer MEDICARE, BC ==
--- NOTE | 2019-07-30 16:56 | CT ---
EXAMINATION TYPE: CT abdomen pelvis wo con DATE OF EXAM: 07/30/2019 COMPARISON: 06/17/2019 HISTORY: diverticulitis Pain CT DLP: 225.8 mGycm Automated exposure control for dose reduction was used. Lung bases are clear. There is no pleural effusion. Heart size is normal. Liver spleen pancreas appear normal. Bile ducts are not dilated. Stomach is intact. Gallbladder is in tact. There is no evidence of pancreatic mass. There is no adrenal mass. Kidneys of normal size and contour. There is no hydronephrosis. Ureters are not dilated. Bladder distends smoothly. There is no inguinal hernia. There is no free fluid in the p papito. There is hysterectomy. Lumbar spine is intact. Bony pelvis appears intact. There is no mesenteric sara ma. There is no ascites or free air. There is no sign of a bowel obstruction. There is no sign of a t hickened appendix. Appendix is not seen. There is no evidence of diverticulitis. IMPRESSION: No acute abnormality of the abdomen pelvis. No adverse change compared to old exam. There is clearing of the air in the left anterior abdominal wall compared to old exam. No evidence of diverticulitis.
== END | disposition home or self-care (01) ==
LOC: RADCTMAIN 16:22
PROVIDERS: ATTEND Surgery Plastic and Reconstructive Surgery
DX: K57.32 Diverticulitis of large intestine without perforation or abscess without bleeding (principal); Z88.5 Allergy status to narcotic agent; Z91.040 Latex allergy status; Z91.041 Radiographic dye allergy status; Z88.8 Allergy status to other drugs, medicaments and biological substances
CPT/HCPCS: 74176

== ENCOUNTER 2019-08-08 12:24 | Emergency (ER) | payer MEDICARE, BC ==
[2019-08-08 12:31] VITALS: TEMP 97.3
--- NOTE | 2019-08-08 12:50 | ED ---
Fall HPI - General Chief Complaint: Fall Stated Complaint: JEN Time Seen by Provider: 08/08/19 12:28 Source: patient, EMS Mode of arrival: EMS - History of Present Illness Initial Comments: Patient is a 69-year-old female presenting to emergency Department with complaints of difficulty breathing and left-sided rib pain. Patient states presently 4 days ago that she fell out of the back of a pickup truck landing mostly on her left side. Patient states she had some soreness on her left ribs did not have difficulty breathing at first. Patient states her breathing became worse yesterday so she went to her PCP. They suggested that she has a contusion to her ribs. Patient presents today for increasing difficulty breathing as well as left-sided rib pain. Patient denies history of COPD or asthma. Patient states she also has some mild left hip pain but is able to ambulate okay. Patient also admits to hitting the left side of her head during the fall although is not very hard and she does not have a headache, blurry vision, nausea, vomiting. Patient has no other complaints at this time. Upon arrival to the ER, patient is on 2 L, 100 %, rest of vitals are normal. - Related Data Home Medications Medication Instructions Recorded Confirmed ALPRAZolam 0.5 mg PO TID PRN 12/29/14 05/29/19 DULoxetine HCL [Cymbalta] 60 mg PO DAILY 12/29/14 05/29/19 Acetaminophen [Tylenol Extra 500 - 1,000 mg PO Q6H PRN 04/17/18 05/29/19 Strength] Meclizine [Antivert] 25 mg PO DAILY 05/28/19 05/29/19 Triamterene-Hctz 37.5-25Mg 1 tab PO DAILY 05/28/19 05/29/19 [Maxzide 37.5-25] Allergies Allergy/AdvReac Type Severity Reaction Status Date / Time adhesive tape Allergy Rash/Hives Verified 08/08/19 12:27 codeine Allergy "felt like Verified 08/08/19 12:27 i was flying around the room" Iodinated Contrast Media Allergy Dyspnea Verified 08/08/19 12:27 [Iodinated Contrast- Oral and IV Dye] meperidine [From Demerol] Allergy Rash/Hives Verified 08/08/19 12:27 morphine Allergy FELT LIKE Verified 08/08/19 12:27 I WAS BEING PULLED IN TO BED Penicillins Allergy Unknown Verified 08/08/19 12:27 Sulfa (Sulfonamide Allergy Unknown Verified 08/08/19 12:27 Antibiotics) latex AdvReac Severe Anaphylaxis Verified 08/08/19 12:27 prednisone AdvReac Confusion Verified 08/08/19 12:27 iv contrast AdvReac Dyspnea Uncoded 08/08/19 12:27 Review of Systems ROS Statement: Those systems with pertinent positive or pertinent negative responses have been documented in the HPI. ROS Other: All systems not noted in ROS Statement are negative. 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 SKIN CA, BASAL CELL. MENIERE'S. SJOGREN'S. 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 related to scar tissue History of Any Multi-Drug Resistant Organisms: None Reported Past Surgical History: Appendectomy, Breast Surgery, Hysterectomy, Orthopedic Surgery, Tonsillectomy Additional Past Surgical History / Comment(s): CHAUNCEY BREAST BX. EXC GANGLION CYST, carpal tunnel LT WRIST, Tendon surgery rt hip. LOOP RECORDER 2017. Past Anesthesia/Blood Transfusion Reactions: Previous Problems w/ Anesthesia, Family History of Problems w/ Anesthesia, Motion Sickness, Postoperative Nausea & Vomiting (PONV) Additional Past Anesthesia/Blood Transfusion Reaction / Comment(s): general anesthesia caused hallucinations for 3 days after hip surgery, LIDOCAINE CAUSES HEART TO RACE; SLOW TO AWAKEN. DAUGHTER AND SISTER HAVE PONV. Past Psychological History: Anxiety, Panic Disorder Smoking Status: Former smoker Past Alcohol Use History: None Reported Past Drug Use History: None Reported - Past Family History Mother Family Medical History: Deep Vein Thrombosis (DVT) Father Family Medical History: Cancer General Exam - General Exam Comments Initial Comments: GENERAL: Patient appears anxious, talking in short sentences, positive to take a breath. HEAD: Atraumatic, normocephalic. EYES: Pupils equal round and reactive to light, extraocular movements intact, sclera anicteric, conjunctiva are normal. ENT: TMs normal, nares patent, oropharynx clear without exudates. Moist mucous membranes. NECK: Normal range of motion, supple without lymphadenopathy or JVD. LUNGS: Patient has decreased breath sounds on the left lower lobe compared to right. Patient is taking rapid shallow breaths. Tender to palpation of the left lateral ribs. HEART: Regular rate and rhythm without murmurs, rubs or gallops. ABDOMEN: Soft, nontender, normoactive bowel sounds. No guarding, no rebound. No masses appreciated. : Deferred EXTREMITIES: No pain with palpation of the left lateral hip. Patient has full range of motion. NEUROLOGICAL: Normal speech, normal gait. PSYCH: Normal mood, normal affect. SKIN: Warm, Dry, normal turgor, no rashes or lesions noted. Limitations: no limitations Course Vital Signs 08/08/19 08/08/19 12:27 13:58 Temperature 97.3 F L Pulse Rate 80 88 Respiratory 22 16 Rate Blood Pressure 146/71 129/87 O2 Sat by Pulse 100 99 Oximetry Medical Decision Making - Medical Decision Making Patient is a 69-year-old female presenting with left-sided rib pain and difficulty in breathing 4 days. Chest x-ray and left-sided rib x-rays reveal no acute fractures, no acute pulmonary abnormalities. Patient's vital signs are stable. I discussed with patient is findings and that she most likely has a left-sided rib contusion. Patient's daughter also admits that patient has been doing a lot around the house the last 2 days as her pain has been increasing. Discussed with patient she needs to rest, apply heat and/or ice to the area, and take anti-inflammatories as needed for pain relief. Patient was given a tramadol starter pack. Patient states will follow up with her PCP. Patient is stable for discharge at this time and she is in agreement with this plan of care. Return parameters were discussed with the patient she verbalized understanding. Case discussed with Dr. Longo. - EKG Data EKG Comments: Ventricular rate 78, FL interval 194, QTC 433. Normal sinus rhythm. No acute ST segment changes. Disposition Clinical Impression: Fall, Contusion of rib on left side Disposition: HOME SELF-CARE Condition: Stable Instructions (If sedation given, give patient instructions): Rib Contusion (ED) Additional Instructions: Please return to the Emergency Department if symptoms worsen or any other concerns. Use heat and/or ice to the area. Take anti-inflammatories for pain relief. Rest. Follow-up with PCP. Is patient prescribed a controlled substance at d/c from ED?: No Referrals: David Love MD [Primary Care Provider] - 1-2 days
--- NOTE | 2019-08-08 13:19 | XR ---
EXAMINATION TYPE: XR ribs LT w pa chest xray DATE OF EXAM: 08/08/2019 COMPARISON: NONE HISTORY: Pain TECHNIQUE: Single view of the chest 4 views of the ribs are submitted. FINDINGS: The lungs are clear. No Evidence for pneumothorax. No evidence for focal contusion. Medi astinal structures are midline. Evaluation of the ribs fails to demonstrate evidence for displaced r ib fracture or secondary sign of rib fracture. IMPRESSION: Negative study
[2019-08-08] MEDS ORDERED: traMADol 50 MG TAB PO STA (13:39)
[2019-08-08] MEDS ORDERED: traMADol 50 MG STARTER PACK 3 TAB BTL PO STA (13:46)
[2019-08-08 13:59] VITALS: BP 129/87; PULSE 88; RESP 16
== END 2019-08-08 13:59 | disposition home or self-care (01) ==
LOC: EC 12:24
DX: S20.212A Contusion of left front wall of thorax, initial encounter (principal); M25.552 Pain in left hip; M79.7 Fibromyalgia; M19.90 Unspecified osteoarthritis, unspecified site; F41.9 Anxiety disorder, unspecified; Z85.828 Personal history of other malignant neoplasm of skin; Z79.899 Other long term (current) drug therapy; Z91.048 Other nonmedicinal substance allergy status; Z88.5 Allergy status to narcotic agent; Z91.041 Radiographic dye allergy status; Z88.0 Allergy status to penicillin; Z88.2 Allergy status to sulfonamides; Z91.040 Latex allergy status; Z88.8 Allergy status to other drugs, medicaments and biological substances; Z87.891 Personal history of nicotine dependence; V58.9XXA Unspecified occupant of pick-up truck or van injured in noncollision transport accident in traffic accident, initial encounter
CPT/HCPCS: 93005; 99284

== ENCOUNTER → 2019-08-17 | Outpatient (CLI) | payer MEDICARE, BC ==
[2019-08-17 11:58] LABS: HCT 33.4 % (34.0-46.0); MCH 31.4 pg (25.0-35.0); MCHC 32.9 g/dL (31.0-37.0); MCV 95.7 fL (80.0-100.0); Mean Platelet Volume 7.6; Platelet Count 472 k/uL (150-450); RBC 3.49 m/uL (3.80-5.40); RDW 12.2 % (11.5-15.5); WBC 6.7 k/uL (3.8-10.6)
== END | disposition home or self-care (01) ==
LOC: LABWHC1 11:42
PROVIDERS: ATTEND Anesthesiology
DX: Z01.812 Encounter for preprocedural laboratory examination (principal); K46.9 Unspecified abdominal hernia without obstruction or gangrene
CPT/HCPCS: 36415; 85027

== ENCOUNTER 2019-08-27 07:16 | Day surgery (SDC) | payer MEDICARE, BC ==
--- NOTE | 2019-08-26 18:52 | P.GSHP ---
History of Present Illness H&P Date: 08/27/19 CHIEF COMPLAINT: Recurrent paraesophageal hiatal hernia with gastroesophageal reflux disease and cholecystitis. HISTORY OF PRESENT ILLNESS: The patient is a 69-year-old female who presents with paraesophageal hiatal hernia including cholecystitis. Now she presents for surgical intervention. PAST MEDICAL HISTORY: Please see list. PAST SURGICAL HISTORY: Please see list. MEDICATIONS: Please see list. ALLERGIES: Please see list. SOCIAL HISTORY: No illicit drug use FAMILY HISTORY: No reports of Crohn disease or ulcerative colitis. REVIEW OF ORGAN SYSTEMS: CONSTITUTIONAL: No reports of fevers or chills. GI: Denies any blood in stools or constipation. PHYSICAL EXAM: VITAL SIGNS: Stable GENERAL: Well-developed pleasant and in no acute distress. HEENT: No scleral icterus. Extraocular movements grossly intact. Moist buccal mucosa. NECK: Supple without lymphadenopathy. CHEST: Unlabored respirations. Equal bilateral excursions. CARDIOVASCULAR: Regular rate and rhythm. Distal 2+ pulses. ABDOMEN: Soft, nondistended. No peritoneal signs. MUSCULOSKELETAL: No clubbing, cyanosis, or edema. SKIN: Well-perfused. Good skin turgor. ASSESSMENT: 1. Recurrent diaphragmatic paraesophageal hiatal hernia 2. Cholecystitis PLAN: 1. Recommend proceeding with a robotic paraesophageal hiatal hernia with possible mesh including cholecystectomy 2. Benefits and risks of surgical intervention was discussed including possibility of open technique. 3. Inpatient hospitalization recommended of 2 nights 4. DVT prophylaxis. 5. Antibiotic prophylaxis. 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 SKIN CA, BASAL CELL. MENIERE'S. SJOGREN'S. 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 related to scar tissue History of Any Multi-Drug Resistant Organisms: None Reported Past Surgical History: Appendectomy, Breast Surgery, Hysterectomy, Orthopedic Surgery, Tonsillectomy Additional Past Surgical History / Comment(s): CHAUNCEY BREAST BX. EXC GANGLION CYST, carpal tunnel LT WRIST, Tendon surgery rt hip. LOOP RECORDER 2017. Past Anesthesia/Blood Transfusion Reactions: Previous Problems w/ Anesthesia, Family History of Problems w/ Anesthesia, Motion Sickness, Postoperative Nausea & Vomiting (PONV) Additional Past Anesthesia/Blood Transfusion Reaction / Comment(s): general anesthesia caused hallucinations for 3 days after hip surgery, LIDOCAINE CAUSES HEART TO RACE; SLOW TO AWAKEN. DAUGHTER AND SISTER HAVE PONV. Smoking Status: Former smoker - Past Family History Mother Family Medical History: Deep Vein Thrombosis (DVT) Father Family Medical History: Cancer Medications and Allergies Home Medications Medication Instructions Recorded Confirmed Type ALPRAZolam 0.5 mg PO TID PRN 12/29/14 08/16/19 History DULoxetine HCL [Cymbalta] 60 mg PO DAILY 12/29/14 08/16/19 History Acetaminophen [Tylenol Extra 500 - 1,000 mg PO Q6H PRN 04/17/18 08/16/19 History Strength] Meclizine [Antivert] 25 mg PO DAILY 05/28/19 08/16/19 History Triamterene-Hctz 37.5-25Mg 1 tab PO DAILY 05/28/19 08/16/19 History [Maxzide 37.5-25] Allergies Allergy/AdvReac Type Severity Reaction Status Date / Time adhesive tape Allergy Rash/Hives Verified 08/16/19 12:01 codeine Allergy "felt like Verified 08/16/19 12:01 i was flying around the room" Iodinated Contrast Media Allergy Dyspnea Verified 08/16/19 12:01 [Iodinated Contrast- Oral and IV Dye] meperidine [From Demerol] Allergy Rash/Hives Verified 08/16/19 12:01 morphine Allergy FELT LIKE Verified 08/16/19 12:01 I WAS BEING PULLED IN TO BED Penicillins Allergy Unknown Verified 08/16/19 12:01 Sulfa (Sulfonamide Allergy Unknown Verified 08/16/19 12:01 Antibiotics) latex AdvReac Severe Anaphylaxis Verified 08/16/19 12:01 prednisone AdvReac Confusion Verified 08/16/19 12:01 iv contrast AdvReac Dyspnea Uncoded 08/16/19 12:01
[~2019-08-27 07:16] MED LIST changes: +ACETAMINOPHEN TAB 500 MG TAB PO STA; +HEPARIN SODIUM,PORCINE 5,000 UNIT/ML 1 ML VIAL SQ ONE; -LACTATED RINGERS 1,000 ML IV SCH; -LIDOCAINE 1% INJ 10MG/ML (20 ML MDV) ONE; -MIDAZOLAM 2 MG/2 ML VIAL IV PRN; -PROPOFOL 10 MG/ML 20 ML VIAL IV ONE; +SCOPOLAMINE 1.5MG/72HR PATCH TRANSDERM SCH
[2019-08-27] MEDS: LACTATED RINGERS 1,000 ML IV SCH (08:18)
[2019-08-27] MEDS ORDERED: MIDAZOLAM 2 MG/2 ML VIAL IV ONE (08:28)
[2019-08-27] MEDS ORDERED: ePHEDrine SULFATE/0.9% NACL/PF 50 MG/5 ML SYRINGE IV ONE (09:20)
[2019-08-27] MEDS ORDERED: PHENYLEPHRINE-0.9% NACL SYG 1 MG/10 ML SYRINGE ONE (09:20)
[2019-08-27] MEDS ORDERED: ROCURONIUM BROMIDE 10 MG/ML 10 ML VIAL IV ONE (09:20)
[2019-08-27] MEDS ORDERED: MIDAZOLAM 2 MG/2 ML VIAL ONE (09:20)
[2019-08-27] MEDS ORDERED: NEOSTIGMINE 1 MG/ML 10 ML VIAL ONE (09:20)
[2019-08-27] MEDS ORDERED: PROPOFOL 10 MG/ML 20 ML VIAL IV ONE (09:20)
[2019-08-27] MEDS ORDERED: SUCCINYLCHOLINE CHLORIDE 100 MG/5 ML SYR IV ONE (09:20)
[2019-08-27] MEDS ORDERED: fentaNYL (PF) 50 MCG/ML 2 ML AMP ONE (09:20)
[2019-08-27] MEDS ORDERED: LIDOCAINE 1% INJ 10MG/ML (20 ML MDV) ONE (09:20)
[2019-08-27] MEDS ORDERED: INDOCYANINE GREEN 25 MG VIAL IV ONE (09:20)
[2019-08-27] MEDS ORDERED: GLYCOPYRROLATE 0.2 MG/ML 2 ML VIAL ONE (09:20)
[2019-08-27] MEDS ORDERED: BUPIVACAIN-EPI 0.25%-1:200,000 30 ML VIAL SQ ONE (09:59)
[2019-08-27] MEDS ORDERED: LACTATED RINGERS 1,000 ML IV ONE ×2 (10:30→12:10)
[2019-08-27] MEDS ORDERED: diphenhydrAMINE 50 MG/ML 1 ML VIAL IVP ONE (12:15)
--- NOTE | 2019-08-27 12:32 | P.OP ---
Date of Procedure: 08/27/19 Description of Procedure: Date of Procedure: 08/27/19 SURGEON: MIRELLA LIAO MD PREOPERATIVE DIAGNOSES: 1. Paraesophageal hiatal hernia, midline, recurrent 2. Gastroesophageal reflux disease with esophageal stricture 3. Epigastric abdominal pain 4. Chronic cholecystitis 5. Vitamin B-12 deficiency 6. Bright's disease 7. Anemia 8. Fibromyalgia 9. Hypertensive heart disease 10. Meniere's disease 11. Paroxysmal atrial fibrillation 12. Sjogren's disease 13. History of basal cell cancer 14. Chronic constipation 15. Sigmoid diverticulosis POSTOPERATIVE DIAGNOSES: 1. Paraesophageal hiatal hernia, midline, recurrent, incarcerated 4 x 4 cm with obstruction 2. Gastroesophageal reflux disease with erosive esophagitis 3. Epigastric abdominal pain 4. Chronic cholecystitis 5. Vitamin B-12 deficiency 6. Bright's disease 7. Anemia 8. Fibromyalgia 9. Hypertensive heart disease 10. Meniere's disease 11. Paroxysmal atrial fibrillation 12. Sjogren's disease 13. History of basal cell cancer 14. Chronic constipation 15. Sigmoid diverticulosis 16. Perigastric adhesions OPERATION: 1. Robotic-assisted da Rafita Xi laparoscopic extensive lysis of adhesions over 1 hour for perigastric adhesions 2. Robotic-assisted da Rafita Xi laparoscopic reduction and repair of recurrent incarcerated paraesophageal hiatal hernia, 4 x 4 cm, with [place] Biopatch A 8 x 8 cm. 3. Robotic-assisted da Rafita Xi laparoscopic cholecystectomy, multiport with FIREFLY 4. Intraoperative esophagogastroduodenoscopy 5. Placement of 56-Citizen Of [place] bougie for pre-existing esophageal stricture Implants: [place] Biopatch A 8 x 8 cm Anesthesia: GETA, local Estimated Blood Loss (ml): 5 Pathology: other (Gallbladder) Condition: stable Disposition: floor Operative Findings: 1. Recurrent incarcerated paraesophageal hiatal hernia, 4 x 4 cm 2. Severe perigastric adhesions with incarcerated hiatal hernia with obstruction 3. Placement of 56 Fr bougie to address esophageal stricture 4. Hill grade 1 lower esophageal sphincter confirmed upon upper endoscopy 5. Complete disruption of right crura requiring reconstruction with pledgeted repair 6. Recurrent hiatal hernia 4 x 4 centimeters with moderate attenuation of the hiatus 7. Pericholecystic adhesions consistent with chronic cholecystitis 8. Highly redundant transverse colon extending to the pelvis INDICATIONS: The patient is a 69-year-old female who presents with epigastric pain, gastroesophageal reflux and a symptomatic diaphragmatic hiatal hernia. Preoperative workup including upper endoscopy demonstrated recurrent hiatal hernia. Given the severity of her symptoms, surgical intervention was offered. Benefits and risks including bleeding, infection, recurrence, dysphagia, injury to the esophagus and stomach, injury to the lung, need for further surgery were described at length. Informed consent was obtained. DESCRIPTION: The patient was brought into the operating room and placed in supine position. Preoperatively she had received heparin subcutaneously for DVT prophylaxis. After general induction, the abdomen was prepped and draped in standard sterile fashion. Ioban draping was placed along the abdomen. A timeout protocol was confirmed with the surgical team, for which the patient's name, procedure to be performed including DVT prophylaxis with bilateral SCDs, and preoperative antibiotics were also confirmed. Robotic da Rafita Xi system was prepped and primed. At 10 cm from the xiphoid to just below the umbilicus, proposed port sites were marked with indelible marker along the left axillary line, left mid-clavicular line with each ports were marked 10 cm from each other. A 5 mm 0 degrees lap aroscopic trocar entry was performed along the left upper quadrant. The abdomen was insufflated to 15 mmHg pressure was tolerated well. Diagnostic laparoscopy demonstrated no injury to bowel, viscera, or mesentery. No injury had occurred to the small bowel or viscera. Along the hiatus, moderate perigastric adhesions were found. The transverse colon was highly redundant and laid low into the pelvis. Next, one 8 mm robotic port was placed along the right upper abdomen. An 8-mm port was were placed along the left lateral abdominal wall. The camera 8-mm port was maintained along the epigastrium. A 12 mm port was placed along the left upper abdominal wall after exchanging the 5 mm port. Please note that the ports were placed at least 20 cm away from the target anatomy. Care was taken to check that each robotic arm were safely away from collision with the bed or the patient. At the epigastrium, a medium sized Marko liver retractor was placed under direct visualization with the Iron Van Loader placed under the right shoulder of the patient. The additional third robotic arm was used. The patient was repositioned in reverse Trendelenburg position at 20-degrees after lowering the bed. The robot was docked above the left side of the patient. Using a grasper for arm 3, a grasper for arm 1, including vessel sealer for arm 4, the robotic system was docked and primed as described. Instruments were interchanged by the technical assistant. I had sat at the console. The phrenoesophageal ligament had moderate scarring where the distal esophagus was mobilized circumferentially. Care was taken to avoid any injury to the stomach and esophagus. The hiatal hernia sac was incarcerated into the mediastinum and divided to allow complete mobilization and freeing of the distal esophagus into the abdominal cavity. Care was taken to avoid any gastrotomy to the incarcerated upper pole of the stomach. Extensive lysis of adhesions went more 1 hour was used for extended dissection of the adherent stomach high into the mediastinum. The hernia sac was divided to release mobility of the esophagus. Dissection went to the mid esophagus. The measured defect was consistent with 4 cm axial length and 4 cm in width. To prevent any injury to the stomach or esophagus, intraoperative EGD was used to monitor the esophagus. Additionally the right crura fibers were moderately disrupted including severe attenuation of the hiatus. Once the hiatus and crura was dissected, a pre-existing attenuated and disrupted right crura was re-constructed and oversewn with 2-0 VLOC. The repair was bu ttressed with [place] Biopath A as a pledgeted repair using 2-0 VLOC. For a posterior hiatal herniaplasty, nonabsorbable2-0 VLOC suture was placed as a running suture to re-approximate the diaphragmatic hiatus posteriorly. To buttress the repair, a [place] Biopatch A was prepared along the back table and cut to reinforce the repair as an underlay. The mesh was placed along the crural repair posteriorly then cut in half and tagged using horizontal mattress sutures using 2-0 VLOC. I went to the head of the bed to perform intraoperative esophagogastroduodenoscopy. An Olympus gastroscope was passed through posterior oropharynx, where the GE junction was found just distal to the diaphragmatic hiatus. Retroflexion of the scope confirmed Hill grade 1 lower esophageal sphincter with LA grade B erosive esophagitis. A 56-Citizen [place] bougie was placed to address pre-existing esophageal stricture for 1 minute. The upper scope confirmed no defects of the esophagus or stomach. The stomach had been desufflated. This concluded the endoscopic portion of the case. Attention was brought to the gallbladder for cholecystectomy. The gallbladder had zach-cholecystic adhesions consisted with chronic cholecystitis. The gallbladder fundus was retracted over the dome of the liver. Initial attention was brought to the infundibulum which was gently retracted in the inferior lateral approach. Using a grasper, the cystic duct including the cystic artery was carefully skeletonized. FIREFLY was used to identify the cystic artery and cystic structures. A critical view of safety was obtained. Large PLASTIC clips were used throughout the entire case. Using a clip hostler helper 2 clips were placed proximally, and 1 clip was placed between the infundibulum and cystic duct and divided using cautery. Next, the cystic artery was similarly clipped and cauterized. Electro-Bovie cautery was used to remove the gallbladder from the hepatic fossa. Hemostasis was checked and found to be adequate. The robot was undocked. I re-scrubbed into the case. Using a 10 mm Endo Catch bag via the left upper quadrant incision, the specimen was removed from the abdominal cavity. All instruments and pneumoperitoneum were evacuated from the abdominal cavity. Incisions were reapproximated using 4-0 Monocryl in an interrupted subcuticular fashion. All incisions were cleaned using dilute hydrogen peroxide. Fascial incisions were less than 8 mm in size. Liquid glue was applied to the skin. Local anesthetic was infiltrated in all wounds for postop analgesia. Multiple intra-abdominal films were obtained. At the end of the procedure, needle, sponge, and instrument count was verified correct by the surgical territory manager. The patient had tolerated the procedure well and was taken to the postanesthesia unit in stable condition. Intraoperative films were reviewed with the patient's family who were pleased with the level of care.
[2019-08-27] MEDS ORDERED: ONDANSETRON 4 MG/2 ML VIAL IVP ONE (12:49)
[2019-08-27] MEDS: HYDROmorphone 0.5 MG/0.5 ML SYRINGE IVP PRN ×3 (13:17→14:10)
[2019-08-27] MEDS ORDERED: SCOPOLAMINE 1.5MG/72HR PATCH TRANSDERM ONE (14:00)
[2019-08-27] MEDS: D5-0.45% NACL WITH KCL 20MEQ/L 1,000 ML IV SCH ×2 (15:20→20:45)
[2019-08-27] MEDS: ONDANSETRON 4 MG/2 ML VIAL IVP SCH ×2 (15:20→17:21)
[2019-08-27] MEDS: SIMETHICONE 40 MG/0.6 ML DROPS 2,000 MG/30 ML BOTTLE PO SCH ×3 (15:20→22:12)
[2019-08-27] MEDS: METOCLOPRAMIDE 5 MG/ML 2 ML VIAL IVP SCH (17:21)
[2019-08-27] MEDS: DEXAMETHASONE SOD PHOSPHATE 4 MG/ML 1 ML VIAL IV SCH (17:21)
[2019-08-27] MEDS: ACETAMINOPHEN IV (For NPO) 1,000 MG in EMPTY BAG 1 BAG IVPB SCH (18:05)
[2019-08-27] MEDS: ALPRAZolam 0.5 MG TAB PO PRN (20:02)
[2019-08-27] MEDS: KETOROLAC 30 MG/ML 1 ML VIAL IVP SCH (20:42)
[2019-08-28] MEDS: DEXAMETHASONE SOD PHOSPHATE 4 MG/ML 1 ML VIAL IV SCH ×3 (00:56→12:19)
[2019-08-28] MEDS: METOCLOPRAMIDE 5 MG/ML 2 ML VIAL IVP SCH ×3 (01:00→12:19)
[2019-08-28] MEDS: ACETAMINOPHEN IV (For NPO) 1,000 MG in EMPTY BAG 1 BAG IVPB SCH ×2 (01:19→06:36)
[2019-08-28] MEDS: ONDANSETRON 4 MG/2 ML VIAL IVP SCH ×3 (01:47→12:19)
[2019-08-28] MEDS: KETOROLAC 30 MG/ML 1 ML VIAL IVP SCH ×2 (04:13→09:50)
[2019-08-28] MEDS: LACTATED RINGERS 1,000 ML IV SCH (04:15)
[2019-08-28] MEDS: D5-0.45% NACL WITH KCL 20MEQ/L 1,000 ML IV SCH (06:24)
[2019-08-28 08:24] VITALS: BP 130/61; PULSE 76; RESP 12; TEMP 98.3
[2019-08-28] MEDS ORDERED: MECLIZINE 25 MG TAB PO SCH (09:00)
[2019-08-28] MEDS ORDERED: ENOXAPARIN 30 MG/0.3 ML SYRINGE SQ SCH (09:00)
[2019-08-28] MEDS ORDERED: TRIAMTERENE-HCTZ 37.5-25MG 1 EACH TAB PO SCH (09:00)
--- NOTE | 2019-08-28 09:34 | FL ---
EXAMINATION TYPE: FL esophagus cervic/pharynx DATE OF EXAM: 08/28/2019 LIMITED UGI-ESOPHAGRAM: CLINICAL HISTORY: Reflux TECHNIQUE: Limited esophagram is performed utilizing 4 oz of thin barium. A total of 56 seconds of f luoroscopic time was utilized during procedure. Images: 15 FINDINGS: The patient swallowed thin barium contrast with moderate delay passing through the gastroe sophageal junction region. Small to moderate amount of free air appears to be under the diaphragm. No hiatal hernia or prolapse is identified. No extravasation of contrast is identified. IMPRESSION: No evidence of leak. Moderate hesitancy passing through the gastroesophageal junction reg ion status post Alcides fundoplication surgery.
[2019-08-28] MEDS: SIMETHICONE 40 MG/0.6 ML DROPS 2,000 MG/30 ML BOTTLE PO SCH ×2 (09:50→12:19)
[2019-08-28] MEDS: ALPRAZolam 0.5 MG TAB PO PRN (09:50)
[2019-08-28 09:53] VITALS: BMI 21.3
[2019-08-28 12:18] LABS: Basophils % (A) 0 %; Eosinophils % (A) 0 %; HCT 31.4 % (34.0-46.0); HGB 10.3 gm/dL (11.4-16.0); Lymphocytes # (A) 1.1 k/uL (1.0-4.8); Lymphocytes % (A) 7 %; MCV 93.9 fL (80.0-100.0); Mean Platelet Volume 7.8; Monocytes # (A) 0.8 k/uL (0-1.0); Monocytes % (A) 5 %; Neutrophils # (A) 13.2 k/uL (1.3-7.7); Neutrophils % (A) 87 %; Platelet Count 420 k/uL (150-450); RBC 3.34 m/uL (3.80-5.40); RDW 12.3 % (11.5-15.5); WBC 15.3 k/uL (3.8-10.6)
[2019-08-28 12:27] LABS: Calcium 9.3 mg/dL (8.4-10.2); Potassium 4.2 mmol/L (3.5-5.1)
--- NOTE | 2019-08-28 13:06 | P.PN ---
Subjective Progress Note Date: 08/28/19 CHIEF COMPLAINT: Incarcerated diaphragmatic hiatal hernia, cholecystitis HISTORY OF PRESENT ILLNESS: The patient is a 69-year-old female postop day 1 status post cholecystectomy and repair of recurrent incarcerated diaphragmatic hiatal hernia. She denies nausea. She is comfortable. No dysphagia. She denies any significant pain. She is tolerating liquids. ROS: No bowel movements. No fevers or chills. No new chest pain. No productive sputum PHYSICAL EXAM: VITAL SIGNS: Reviewed CONSTITUTIONAL: Well developed and in no acute distress. EYES: Conjuctivae without sclera icterus. Extraocular movements grossly intact. HEAD, EARS, NOSE, THROAT: Moist buccal mucosa. Head is atraumatic, normoc ephalic. Hears conversational speech. No nasal drainage. NECK: Supple. No thyroidomegaly. RESPIRATORY: Non-labored respirations and equal bilateral excursions. CARDIOVASCULAR: Palpable 2+ radial pulses. Regular rate. Regular rhythm. ABDOMEN: Incisions clean dry and intact. Soft. No peritonitis. MUSCULOSKELETAL: No gross deformity of the lower extremities noted. No clubbing. No cyanosis. SKIN: Good skin turgor. Well perfused. NEUROLOGIC: Cranial nerves I through XII grossly intact. No focal or lateralizing signs. PSYCH: Appropriate affect. Alert and oriented to person, place and time. CLINICAL LABS:Hgb less than 12.0, pre-existing vitamin B12 deficiency. STUDIES: Esophagram independently reviewed without leak or obstruction. RADIOLOGY: Reviewed consistent with no obstruction of the GE junction or leaks. No recurrent hiatal hernia identified ASSESSMENT: 1. Recurrent incarcerated diaphragmatic hiatal hernia 2. Chronic cholecystitis PLAN: 1. Post hiatal hernia diet advised 2. Stable for discharge Objective - Vital Signs Vital signs: Vital Signs Temp 98.3 F 08/28/19 07:00 Pulse 76 08/28/19 09:57 Resp 12 08/28/19 09:57 BP 130/61 08/28/19 07:00 Pulse Ox 99 08/28/19 07:00 Intake & Output 08/27/19 08/28/19 08/28/19 18:59 06:59 18:59 Intake Total 2800 1500 100 Output Total 5 Balance 2795 1500 100 Weight 53 kg 53 kg Intake: IV 2800 Intake, IV Titration 1500 Amount D5-0.45% NaCl with KCl 1500 20Meq/l 1,000 ml @ 125 mls/hr IV .Q8H RAFAEL Rx#: [id number] Oral 100 Output: Estimated Blood Loss 5 Other: Voiding Method Toilet Toilet # Voids 1 - Labs CBC & Chem 7: 08/28/19 12:02 08/28/19 12:02 Assessment and Plan (1) Incarcerated hiatal hernia Current Visit: Yes Status: Acute Code(s): K44.0 - DIAPHRAGMATIC HERNIA WITH OBSTRUCTION, WITHOUT GANGRENE SNOMED Code(s): 869300024 (2) Cholecystitis Current Visit: Yes Status: Acute Code(s): K81.9 - CHOLECYSTITIS, UNSPECIFIED SNOMED Code(s): 31316218 (3) Bright disease Current Visit: Yes Status: Acute Code(s): N05.9 - UNSP NEPHRITIC SYNDROME WITH UNSPECIFIED MORPHOLOGIC CHANGES SNOMED Code(s): 38296292 (4) Hypertensive heart disease Current Visit: Yes Status: Acute Code(s): I11.9 - HYPERTENSIVE HEART DISEASE WITHOUT HEART FAILURE SNOMED Code(s): 45858212 (5) Depressive disorder Current Visit: Yes Status: Acute Code(s): F32.9 - MAJOR DEPRESSIVE DISORDER, SINGLE EPISODE, UNSPECIFIED SNOMED Code(s): 36072258 (6) Sjogren's disease Current Visit: Yes Status: Acute Code(s): M35.00 - SICCA SYNDROME, UNSPECIFIED SNOMED Code(s): 49280329 (7) Meniere disease Current Visit: Yes Status: Acute Code(s): H81.09 - MENIERE'S DISEASE, UNSPECIFIED EAR SNOMED Code(s): 27321359 (8) Fibromyalgia Current Visit: Yes Status: Acute Code(s): M79.7 - FIBROMYALGIA SNOMED Code(s): 398939595 (9) Gastroesophageal reflux disease Current Visit: Yes Status: Acute Code(s): K21.9 - GASTRO-ESOPHAGEAL REFLUX DISEASE WITHOUT ESOPHAGITIS SNOMED Code(s): 145909851
--- NOTE | 2019-08-28 13:12 | P.DS ---
Providers Date of admission: 08/27/2019 Expected date of discharge: 08/28/19 Attending physician: Hollie Cullen Primary care physician: David Love - Discharge Diagnosis(es) (1) Incarcerated hiatal hernia Current Visit: Yes Status: Acute (2) Cholecystitis Current Visit: Yes Status: Acute (3) Bright disease Current Visit: Yes Status: Acute (4) Hypertensive heart disease Current Visit: Yes Status: Acute (5) Depressive disorder Current Visit: Yes Status: Acute (6) Sjogren's disease Current Visit: Yes Status: Acute (7) Meniere disease Current Visit: Yes Status: Acute (8) Fibromyalgia Current Visit: Yes Status: Acute (9) Gastroesophageal reflux disease Current Visit: Yes Status: Acute Hospital Course: CHIEF COMPLAINT: Incarcerated diaphragmatic hiatal hernia, cholecystitis HISTORY OF PRESENT ILLNESS: The patient is a 69-year-old female postop day 1 status post cholecystectomy and repair of recurrent incarcerated diaphragmatic hiatal hernia. She denies nausea. She is comfortable. No dysphagia. She denies any significant pain. She is tolerating liquids. ROS: No bowel movements. No fevers or chills. No new chest pain. No productive sputum PHYSICAL EXAM: VITAL SIGNS: Reviewed CONSTITUTIONAL: Well developed and in no acute distress. EYES: Conjuctivae without sclera icterus. Extraocular movements grossly intact. HEAD, EARS, NOSE, THROAT: Moist buccal mucosa. Head is atraumatic, normocephalic. Hears conversational speech. No nasal drainage. NECK: Supple. No thyroidomegaly. RESPIRATORY: Non-labored respirations and equal bilateral excursions. CARDIOVASCULAR: Palpable 2+ radial pulses. Regular rate. Regular rhythm. ABDOMEN: Incisions clean dry and intact. Soft. No peritonitis. MUSCULOSKELETAL: No gross deformity of the lower extremities noted. No clubbin g. No cyanosis. SKIN: Good skin turgor. Well perfused. NEUROLOGIC: Cranial nerves I through XII grossly intact. No focal or lateralizing signs. PSYCH: Appropriate affect. Alert and oriented to person, place and time. CLINICAL LABS:Hgb less than 12.0, pre-existing vitamin B12 deficiency. STUDIES: Esophagram independently reviewed without leak or obstruction. RADIOLOGY: Reviewed consistent with no obstruction of the GE junction or leaks. No recurrent hiatal hernia identified ASSESSMENT: 1. Recurrent incarcerated diaphragmatic hiatal hernia 2. Chronic cholecystitis PLAN: 1. Post hiatal hernia diet advised 2. Stable for discharge Procedures: Robotic repair of incarcerated midline diaphragmatic hernia and cholecystectomy Patient Condition at Discharge: Good Plan - Discharge Summary Discharge Rx Participant: No New Discharge Prescriptions: No Action DULoxetine HCL [Cymbalta] 60 mg PO DAILY ALPRAZolam 0.5 mg PO TID PRN PRN Reason: Anxiety Acetaminophen [Tylenol Extra Strength] 500 - 1,000 mg PO Q6H PRN PRN Reason: Pain Triamterene-Hctz 37.5-25Mg [Maxzide 37.5-25] 1 tab PO DAILY Meclizine [Antivert] 25 mg PO DAILY Discharge Medication List ALPRAZolam 0.5 mg PO TID PRN 12/29/14 [History] DULoxetine HCL [Cymbalta] 60 mg PO DAILY 12/29/14 [History] Acetaminophen [Tylenol Extra Strength] 500 - 1,000 mg PO Q6H PRN 04/17/18 [History] Meclizine [Antivert] 25 mg PO DAILY 05/28/19 [History] Triamterene-Hctz 37.5-25Mg [Maxzide 37.5-25] 1 tab PO DAILY 05/28/19 [History]
== END 2019-08-28 14:40 | disposition home or self-care (01) ==
LOC: ORWHC2ENDO 07:16 → EDSTATUS 08:55 → 4SSUR 12:22 → ORWHC2ENDO 08-28 14:40
PROVIDERS: ATTEND Surgery Plastic and Reconstructive Surgery
DX: K44.0 Diaphragmatic hernia with obstruction, without gangrene (principal); K21.0 Gastro-esophageal reflux disease with esophagitis; E53.8 Deficiency of other specified B group vitamins; D64.9 Anemia, unspecified; K59.09 Other constipation; K81.1 Chronic cholecystitis; K22.2 Esophageal obstruction; K57.30 Diverticulosis of large intestine without perforation or abscess without bleeding; K66.0 Peritoneal adhesions (postprocedural) (postinfection); I48.0 Paroxysmal atrial fibrillation; M79.7 Fibromyalgia; M19.90 Unspecified osteoarthritis, unspecified site; N05.9 Unspecified nephritic syndrome with unspecified morphologic changes; Z85.828 Personal history of other malignant neoplasm of skin; H81.09 Meniere's disease, unspecified ear; M35.00 Sjogren syndrome, unspecified; K55.1 Chronic vascular disorders of intestine; Z90.49 Acquired absence of other specified parts of digestive tract; I11.9 Hypertensive heart disease without heart failure; F32.9 Major depressive disorder, single episode, unspecified; Z90.710 Acquired absence of both cervix and uterus; Z98.890 Other specified postprocedural states; Z90.89 Acquired absence of other organs; Z88.8 Allergy status to other drugs, medicaments and biological substances; Z95.818 Presence of other cardiac implants and grafts; Z87.891 Personal history of nicotine dependence; Z79.899 Other long term (current) drug therapy; Z91.048 Other nonmedicinal substance allergy status; Z88.5 Allergy status to narcotic agent; Z91.041 Radiographic dye allergy status; Z88.0 Allergy status to penicillin; Z88.2 Allergy status to sulfonamides; Z91.040 Latex allergy status; Q43.8 Other specified congenital malformations of intestine; F41.9 Anxiety disorder, unspecified; Z86.73 Personal history of transient ischemic attack (TIA), and cerebral infarction without residual deficits
CPT/HCPCS: 43282; 47562; 43249; 88304; 80048; 85025; 74210; C1781; J2250; J1200; J1644; J1100 ×3; J2710; J2765 ×2; J0690 ×2; J2405 ×2; J2001; J3010; J1885 ×2; J1650; J0131 ×2; J2370; J0330; J2704; J1170

== ENCOUNTER → 2019-09-10 | Outpatient (CLI) | payer MEDICARE, BC ==
[~2019-09-10] MED LIST changes: -ACETAMINOPHEN TAB 500 MG TAB PO STA; +DEXAMETHASONE SOD PHOSPHATE 10 MG/ML 1 ML VIAL IM NR; -DEXAMETHASONE SOD PHOSPHATE 10 MG/ML 1 ML VIAL IV ONE; -HEPARIN SODIUM,PORCINE 5,000 UNIT/ML 1 ML VIAL SQ ONE; -LIDOCAINE 1% 20 ML VIAL (10MG/ML) FOR IV START INTRADERMA PRN; -ONDANSETRON 4 MG/2 ML VIAL IVP ONE; -SCOPOLAMINE 1.5MG/72HR PATCH TRANSDERM SCH; -fentaNYL (PF) 50 MCG/ML 2 ML AMP IV PRN
[2019-09-10 11:38] VITALS: BP 133/73; PULSE 85; RESP 15; TEMP 97.8
== END ==
LOC: PROCWHC3 11:10
PROVIDERS: ATTEND Surgery Plastic and Reconstructive Surgery
DX: L50.9 Urticaria, unspecified (principal)
CPT/HCPCS: 96372; J1100

== ENCOUNTER → 2019-09-17 | Outpatient (CLI) | payer MEDICARE, BC ==
--- NOTE | 2019-09-17 11:25 | FL ---
EXAMINATION TYPE: FL barium swallow DATE OF EXAM: 09/17/2019 LIMITED UGI-ESOPHAGRAM: CLINICAL HISTORY: History of 2 hiatal hernia repair surgeries last one being August 27, 2019. Pers istent pain and diminished appetite since most recent surgery. Episode of syncope last week. TECHNIQUE: Limited esophagram is performed utilizing 20 oz of thin liquid barium. A total of 75 seco nds of fluoroscopic time was utilized during procedure. 19 spot images saved to PACS. Comparison: Most recent Limited esophagram August 28, [address] abdomen and pelvis July 30, 2019 FINDINGS: The patient swallowed contrast without difficulty or delay. Esophageal peristalsis and mo tility are within normal limits. There is satisfactory flow of contrast along the diaphragmatic hiatu s into the stomach, there is no evidence of contrast extravasation to suggest leak. No recurrent hiat al hernia is seen. Some contrast pulled in the distal one half of the esophagus and caliber channel a t diaphragmatic hiatus is slightly narrowed. No significant change from most recent esophagram. Overl walt loop recorder redemonstrated. IMPRESSION: Moderate hesitancy remains present at site of recent fundoplication surgery or diaphragma tic hiatus. No significant change from prior.
[2019-09-17 11:36] LABS: HCT 38.7 % (34.0-46.0); HGB 12.4 gm/dL (11.4-16.0); MCH 30.4 pg (25.0-35.0); MCHC 32.1 g/dL (31.0-37.0); MCV 94.8 fL (80.0-100.0); Mean Platelet Volume 7.1; Platelet Count 547 k/uL (150-450); RBC 4.08 m/uL (3.80-5.40); RDW 11.8 % (11.5-15.5); WBC 9.9 k/uL (3.8-10.6)
[2019-09-17 11:40] LABS: INR 0.9 (<1.2); Partial Thromboplastin Time 23.7 sec (22.0-30.0); Prothrombin Time 9.5 sec (9.0-12.0)
[2019-09-17 13:52] LABS: Albumin 4.1 g/dL (3.5-5.0); Calcium 9.5 mg/dL (8.4-10.2); Magnesium 1.8 mg/dL (1.6-2.3); Phosphorus 4.4 mg/dL (2.5-4.5); Potassium 4.1 mmol/L (3.5-5.1); Total Bilirubin 0.4 mg/dL (0.2-1.3); Total Protein 6.9 g/dL (6.3-8.2)
[2019-09-17 17:05] LABS: % Iron Saturation 32.3 (12.00-45.00)
[2019-09-17 17:14] LABS: Ferritin 163.4 ng/mL (10.0-291.0); Folate, Serum 6.4 ng/mL
[2019-09-17 19:17] LABS: Hemoglobin A1C 5.2 % (4.0-6.0)
[2019-09-18 12:53] LABS: Zinc, Serum 72 ug/dL (60-130)
[2019-09-19 07:51] LABS: Vitamin A 70 ug/dL (38-106)
[2019-09-19 23:00] LABS: Selenium 121 mcg/L (63-160)
[2019-09-20 09:39] LABS: Vit B1(Thiamine) 37 ug/L (38-122)
== END | disposition home or self-care (01) ==
LOC: RADXRMAIN 10:06
PROVIDERS: ATTEND Surgery Plastic and Reconstructive Surgery
DX: R13.10 Dysphagia, unspecified (principal); K21.9 Gastro-esophageal reflux disease without esophagitis; D50.8 Other iron deficiency anemias; K90.89 Other intestinal malabsorption; K74.1 Hepatic sclerosis; N19 Unspecified kidney failure; K50.90 Crohn's disease, unspecified, without complications; E89.1 Postprocedural hypoinsulinemia
CPT/HCPCS: 36415; 74220; 80053; 80061; 82306; 82525; 82607; 82728; 82746; 83036; 83540; 83550; 83735; 83970; 84100; 84134; 84255; 84425; 84443; 84590; 84630; 85027; 85610; 85730

== ENCOUNTER 2019-09-23 07:36 | Day surgery (SDC) | payer MEDICARE, BC ==
[2019-09-19 11:50] VITALS: BMI 20.3
--- NOTE | 2019-09-22 18:44 | P.GSHP ---
History of Present Illness H&P Date: 09/23/19 CHIEF COMPLAINT: GERD HISTORY OF PRESENT ILLNESS: The patient is a 69-year-old female who presents reports gastroesophageal reflux disease. Upper endoscopy was offered for further evaluation and management. PAST MEDICAL HISTORY: Please see list. PAST SURGICAL HISTORY: Please see list. MEDICATIONS: Please see list. ALLERGIES: Please see list. SOCIAL HISTORY: No illicit drug use FAMILY HISTORY: No reports of Crohn disease or ulcerative colitis. REVIEW OF ORGAN SYSTEMS: CONSTITUTIONAL: No reports of fevers or chills. GI: Denies any blood in stools or constipation. PHYSICAL EXAM: VITAL SIGNS: Stable GENERAL: Well-developed and pleasant in no acute distress. HEENT: No scleral icterus. Extraocular movements grossly intact. Moist buccal mucosa. NECK: Supple without lymphadenopathy. CHEST: Unlabored respirations. Equal bilateral excursions. CARDIOVASCULAR: Regular rate and rhythm. Distal 2+ pulses. ABDOMEN: Soft, nondistended. MUSCULOSKELETAL: No clubbing, cyanosis, or edema. ASSESSMENT: 1. Gastroesophageal reflux disease PLAN: 1. 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 SKIN CA, BASAL CELL. MENIERE'S. SJOGREN'S. 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 related to scar tissue History of Any Multi-Drug Resistant Organisms: None Reported Past Surgical History: Appendectomy, Breast Surgery, Cholecystectomy, Hernia Repair, Hysterectomy, Orthopedic Surgery, Tonsillectomy Additional Past Surgical History / Comment(s): CHAUNCEY BREAST BX. EXC GANGLION CYST, carpal tunnel LT WRIST, Tendon surgery rt hip. LOOP RECORDER. 2017. HIATAL HERNIA REVISION , EGD, COLONOSCOPY Past Anesthesia/Blood Transfusion Reactions: Previous Problems w/ Anesthesia, Family History of Problems w/ Anesthesia, Motion Sickness, Postoperative Nausea & Vomiting (PONV) Additional Past Anesthesia/Blood Transfusion Reaction / Comment(s): general anesthesia caused hallucinations for 3 days after hip surgery, LIDOCAINE CAUSES HEART TO RACE; SLOW TO AWAKEN. DAUGHTER AND SISTER HAVE PONV. Smoking Status: Former smoker - Past Family History Mother Family Medical History: Deep Vein Thrombosis (DVT) Father Family Medical History: Cancer Medications and Allergies Home Medications Medication Instructions Recorded Confirmed Type ALPRAZolam 0.5 mg PO TID PRN 12/29/14 09/19/19 History DULoxetine HCL [Cymbalta] 60 mg PO DAILY 12/29/14 09/19/19 History Acetaminophen [Tylenol Extra 500 - 1,000 mg PO Q6H PRN 04/17/18 09/19/19 History Strength] Meclizine [Antivert] 25 mg PO DAILY 05/28/19 09/19/19 History Triamterene-Hctz 37.5-25Mg 1 tab PO DAILY 05/28/19 09/19/19 History [Maxzide 37.5-25] Bisacodyl [Dulcolax] 5 mg PO DAILY PRN #10 tablet. 08/28/19 09/19/19 Rx Omeprazole 40 mg PO DAILY #30 capsule. 08/28/19 09/19/19 Rx Ondansetron Odt [Zofran Odt] 4 mg PO Q8HR PRN #9 tab 08/28/19 09/19/19 Rx Simethicone 40 mg/0.6 ml Drops 40 mg PO PCHS PRN #30 ml 08/28/19 09/19/19 Rx [Mylicon Drops] Allergies Allergy/AdvReac Type Severity Reaction Status Date / Time adhesive tape Allergy Rash/Hives Verified 09/19/19 11:43 codeine Allergy "felt like Verified 09/19/19 11:43 i was flying around the room" Iodinated Contrast Media Allergy Dyspnea Verified 09/19/19 11:43 [Iodinated Contrast- Oral and IV Dye] meperidine [From Demerol] Allergy Rash/Hives Verified 09/19/19 11:43 morphine Allergy FELT LIKE Verified 09/19/19 11:43 I WAS BEING PULLED IN TO BED Penicillins Allergy Rash/Hives Verified 09/19/19 11:43 Sulfa (Sulfonamide Allergy Rash/Hives Verified 09/19/19 11:43 Antibiotics) latex AdvReac Severe Anaphylaxis Verified 09/19/19 11:43 prednisone AdvReac Confusion Verified 09/19/19 11:43 SURGICAL GLUE Allergy Rash/Hives Uncoded 09/19/19 11:43 iv contrast AdvReac Dyspnea Uncoded 09/19/19 11:43
[~2019-09-23 07:36] MED LIST changes: -DEXAMETHASONE SOD PHOSPHATE 10 MG/ML 1 ML VIAL IM NR; +LACTATED RINGERS 1,000 ML IV SCH
[2019-09-23 08:04] VITALS: TEMP 97.6
[2019-09-23] MEDS ORDERED: MIDAZOLAM 2 MG/2 ML VIAL ONE (08:19)
[2019-09-23] MEDS ORDERED: PROPOFOL 10 MG/ML 20 ML VIAL IV ONE (08:19)
[2019-09-23] MEDS ORDERED: ONDANSETRON 4 MG/2 ML VIAL IVP ONE (08:20)
--- NOTE | 2019-09-23 08:52 | P.PCN ---
Date of Procedure: 09/23/19 Description of Procedure: PREOPERATIVE DIAGNOSIS: Dysphagia. Gastroesophageal reflux disease Esophageal stricture POSTOPERATIVE DIAGNOSIS: Dysphagia. Gastroesophageal reflux disease Esophageal stricture OPERATION: Esophagogastroduodenoscopy with rigid dilator over the guidewire 54 Fr. SURGEON: Hollie Cullen MD ANESTHESIA: MAC. INDICATIONS: The patient is a 69-year-old female who presents with a history of dysphagia. Benefits and risks of the procedure were described. Informed consent was o btained. DESCRIPTION: The patient was brought into the endoscopy suite and laid in the left lateral decubitus position. After a timeout was confirmed, the procedure was initiated. An Olympus gastroscope was passed and the stomach was entered. Retained food was identified. The scope was advanced to the duodenum which was unremarkable. Retroflexion the scope confirmed a Hill grade 1 lower esophageal valve. Next using an Beninese rigid dilator, a guidewire was placed through the pediatric gastroscope. Next the scope was withdrawn. A 54-Botswanan rigid Beninese dilator was passed carefully along the posterior oropharynx to 50 cm and left in place for 2-3 minutes stretch. The dilator was withdrawn including the guidewire. The scope was reentered along the posterior oropharynx with no findings of full-thickness tear of the upper esophageal sphincter. No full-thickness injury was encountered. The GI tract was desufflated. The patient tolerated the procedure well. FINDINGS: Squamocolumnar junction unremarkable Distal esophageal stricture without ulceration Beninese rigid dilator 54-Botswanan completed. No hiatus hernia Retained food Hill grade 1 lower esophageal valve. No LA grade A esophagitis. RECOMMENDATIONS: Upper endoscopy as needed Plan - Discharge Summary Discharge Rx Participant: No New Discharge Prescriptions: Continue DULoxetine HCL [Cymbalta] 60 mg PO DAILY ALPRAZolam 0.5 mg PO TID PRN PRN Reason: Anxiety Acetaminophen [Tylenol Extra Strength] 500 - 1,000 mg PO Q6H PRN PRN Reason: Pain Triamterene-Hctz 37.5-25Mg [Maxzide 37.5-25] 1 tab PO DAILY Meclizine [Antivert] 25 mg PO DAILY Bisacodyl [Dulcolax] 5 mg PO DAILY PRN #10 tablet.dr PRN Reason: Constipation Simethicone 40 mg/0.6 ml Drops [Mylicon Drops] 40 mg PO PCHS PRN #30 ml PRN Reason: Gas Omeprazole 40 mg PO DAILY #30 capsule. Ondansetron Odt [Zofran ODT] 4 mg PO Q8HR PRN #9 tab PRN Reason: Nausea Discharge Medication List ALPRAZolam 0.5 mg PO TID PRN 12/29/14 [History] DULoxetine HCL [Cymbalta] 60 mg PO DAILY 12/29/14 [History] Acetaminophen [Tylenol Extra Strength] 500 - 1,000 mg PO Q6H PRN 04/17/18 [History] Meclizine [Antivert] 25 mg PO DAILY 05/28/19 [History] Triamterene-Hctz 37.5-25Mg [Maxzide 37.5-25] 1 tab PO DAILY 05/28/19 [History] Bisacodyl [Dulcolax] 5 mg PO DAILY PRN #10 tablet. 08/28/19 [Rx] Omeprazole 40 mg PO DAILY #30 capsule. 08/28/19 [Rx] Ondansetron Odt [Zofran ODT] 4 mg PO Q8HR PRN #9 tab 08/28/19 [Rx] Simethicone 40 mg/0.6 ml Drops [Mylicon Drops] 40 mg PO PCHS PRN #30 ml 08/28/19 [Rx] Follow up Appointment(s)/Referral(s): Hollie Cullen MD [STAFF PHYSICIAN] - 10/01/19 Patient Instructions/Handouts: Esophageal Dilation (DC) Discharge Disposition: HOME SELF-CARE
[2019-09-23 09:01] VITALS: BP 133/63; PULSE 75; RESP 15
== END 2019-09-23 09:39 | disposition home or self-care (01) ==
LOC: ORWHC2ENDO 07:36
PROVIDERS: ATTEND Surgery Plastic and Reconstructive Surgery
DX: K22.2 Esophageal obstruction (principal); K21.0 Gastro-esophageal reflux disease with esophagitis; I48.91 Unspecified atrial fibrillation; F41.0 Panic disorder [episodic paroxysmal anxiety]; M35.00 Sjogren syndrome, unspecified; K44.9 Diaphragmatic hernia without obstruction or gangrene; M79.7 Fibromyalgia; M19.90 Unspecified osteoarthritis, unspecified site; N05.9 Unspecified nephritic syndrome with unspecified morphologic changes; K55.1 Chronic vascular disorders of intestine; H81.09 Meniere's disease, unspecified ear; I67.1 Cerebral aneurysm, nonruptured; Z85.828 Personal history of other malignant neoplasm of skin; Z90.49 Acquired absence of other specified parts of digestive tract; Z98.890 Other specified postprocedural states; Z87.891 Personal history of nicotine dependence; Z82.49 Family history of ischemic heart disease and other diseases of the circulatory system; Z91.040 Latex allergy status; Z88.0 Allergy status to penicillin; Z88.5 Allergy status to narcotic agent; Z91.048 Other nonmedicinal substance allergy status; Z91.041 Radiographic dye allergy status; Z88.2 Allergy status to sulfonamides; Z79.899 Other long term (current) drug therapy; Z88.8 Allergy status to other drugs, medicaments and biological substances
CPT/HCPCS: 43248; J2250; J2405; J2704; 43249

== ENCOUNTER → 2019-09-27 | Outpatient (CLI) | payer MEDICARE, BC ==
--- NOTE | 2019-09-30 14:16 | MM ---
Reason for exam: screening (asymptomatic). Last mammogram was performed 1 year and 6 months ago. History: Patient is postmenopausal and history of other cancer. Family history of breast cancer in mother at age 30 and breast cancer in maternal aunt at age 50. Benign excisional biopsy of the left breast. Benign excisional biopsy of the right breast. Took estrogen for 20 years. Physical Findings: A clinical breast exam by your physician is recommended on an annual basis and results should be correlated with mammographic findings. MG 3D Screening Mammo W/Cad Bilateral CC and MLO view(s) were taken. Prior study comparison: March 22, 2018, bilateral MG 3d diag mammo w/cad [facility]. September 22, 2014, bilateral MG diagnostic mammo w CAD [facility]. The breast tissue is heterogeneously dense. This may lower the sensitivity of mammography. Stable benign calcifications. There is no discrete abnormality. No significant changes when compared with prior studies. ASSESSMENT: Benign, BI-RAD 2 RECOMMENDATION: Routine screening mammogram of both breasts in 1 year.
== END | disposition home or self-care (01) ==
LOC: RADMAMWWP 12:33
PROVIDERS: ATTEND Pediatrics
DX: Z12.31 Encounter for screening mammogram for malignant neoplasm of breast (principal)
CPT/HCPCS: 77063; 77067

== ENCOUNTER → 2020-02-27 | Outpatient (CLI) | payer MEDICARE, BC ==
--- NOTE | 2020-02-27 12:29 | CT ---
EXAMINATION TYPE: CT brain wo con DATE OF EXAM: 02/27/2020 COMPARISON: 01/05/17 HISTORY: [place], HX OF ANEURYSM CT DLP: 945.[address] of the brain was performed. The ventricles, basal cisterns and sulci overlying the cerebral convexities demonstrate mild enlargem ent. There is no evidence for intracranial hemorrhage or sulcal effacement. There is decreased attenuation about the periventricular white matter and deep white matter of both c erebral hemispheres, compatible with chronic small vessel ischemia. Differential diagnosis does inclu de demyelination. No mass effects are seen.No midline shift. Osseous calvarium is intact. If symptoms persist consider MRI. IMPRESSION: 1. Age related atrophic and chronic small vessel ischemic change without acute intracranial process s een at this time.
--- NOTE | 2020-03-04 15:59 | ECHOF ---
Referral Reason:R55 syncope MEASUREMENTS -------- HEIGHT: 160.0 cm WEIGHT: 53.1 kg BP: RVIDd: 2.7 cm (< 3.3) IVSd: 1.0 cm (0.6 - 1.1) LVIDd: 4.0 cm (3.9 - 5.3) LVPWd: 1.1 cm (0.6 - 1.1) IVSs: 1.2 cm LVIDs: 2.7 cm LVPWs: 1.5 cm LA Diam: 2.7 cm (2.7 - 3.8) LAESV Index (A-L): 14.08 ml/m Ao Diam: 2.8 cm (2.0 - 3.7) AV Cusp: 1.6 cm (1.5 - 2.6) MV EXCURSION: 17.484 mm (> 18.000) MV EF SLOPE: 116 mm/s (70 - 150) EPSS: 0.2 cm MV E Francisco: 0.52 m/s MV DecT: 215 ms MV A Francisco: 0.59 m/s MV E/A Ratio: 0.88 RAP: 5.00 mmHg RVSP: 11.51 mmHg FINDINGS -------- Sinus rhythm. This was a technically good study. LV size, wall thickness and systolic function are normal, with an EF greater than 55%. The left binta tricular size is normal. The right ventricle is normal in size. The left atrial size is normal. The right atrial size is normal. There is mild aortic valve sclerosis. Trace to mild aortic regurgitation. Mild mitral annular calcification present. Mild mitral regurgitation is present. Mild tricuspid regurgitation present. Right ventricular systolic pressure is normal at < 35 mmHg. There is no pulmonic regurgitation present. The aortic root size is normal. There is no pericardial effusion. CONCLUSIONS -------- 1. Sinus rhythm. 2. This was a technically good study. 3. LV size, wall thickness and systolic function are normal, with an EF greater than 55%. 4. The left ventricular size is normal. 5. The right ventricle is normal in size. 6. The left atrial size is normal. 7. The right atrial size is normal. 8. There is mild aortic valve sclerosis. 9. Trace to mild aortic regurgitation. 10. Mild mitral annular calcification present. 11. Mild mitral regurgitation is present. 12. Mild tricuspid regurgitation present. 13. Right ventricular systolic pressure is normal at < 35 mmHg. 14. There is no pulmonic regurgitation present. 15. The aortic root size is normal. 16. There is no pericardial effusion. DIRECTOR OF STUDENT LIFE: Tammi Benton RDCS
== END | disposition home or self-care (01) ==
LOC: RADCTMAIN 11:54
PROVIDERS: ATTEND Pediatrics
DX: G31.1 Senile degeneration of brain, not elsewhere classified (principal); I67.82 Cerebral ischemia; I08.1 Rheumatic disorders of both mitral and tricuspid valves
CPT/HCPCS: 70450; 93306

== ENCOUNTER → 2020-08-24 | Day surgery (SDC) | payer MEDICARE, BC ==
[2020-08-18 10:30] VITALS: BMI 21.2
[~2020-08-24] MED LIST changes: +ACETAMINOPHEN TAB 325 MG TAB ONE; +ACETAMINOPHEN TAB 325 MG TAB PO STA; +CLINDAMYCIN 900 MG in DEXTROSE 5% IN WATER 50 ML IVPB PRN; -LACTATED RINGERS 1,000 ML IV SCH; +LIDOCAINE 1% INJ 10MG/ML (20 ML MDV) ONE; +LIDOCAINE 1% INJ 10MG/ML (20 ML MDV) SQ ONE; +SODIUM CHLORIDE 0.9% 1,000 ML IV SCH
[2020-08-24 09:46] VITALS: BP 130/91; PULSE 100; RESP 16; TEMP 97.7
[2020-08-24] MEDS: MIDAZOLAM 2 MG/2 ML VIAL IV ONE ×2 (10:57→11:05)
--- NOTE | 2020-08-24 11:41 | P.EPPROC ---
- EP Procedure Note Electrophysiology Procedure Note: Procedure: Loop explant under sedation and local anesthesia. Diagnosis: Loop monitor at [facility] Patient was brought to the EP lab in a fasting state. Written informed consent was obtained prior to the procedure. The subcutaneous device was successfully explanted under local anesthesia. Preoperative antibiotics were administered. The wound was closed in layers and dressed per protocol. Result: Successful loop monitor explantation. Patient underwent EP procedure under conscious sedation/moderate sedation, monitoring of the level of consciousness and physiologic parameters including but not limited to vital signs and oxygenation. Patient tolerated the procedure well without any acute complications. Start time: 1059 Stop time: 1114
== END ==
LOC: CATHEP 09:16
PROVIDERS: ATTEND Internal Medicine Clinical Cardiac Electrophysiology
DX: Z45.09 Encounter for adjustment and management of other cardiac device (principal); R00.2 Palpitations; I67.1 Cerebral aneurysm, nonruptured; E78.5 Hyperlipidemia, unspecified; I48.92 Unspecified atrial flutter; M35.00 Sjogren syndrome, unspecified; I70.0 Atherosclerosis of aorta; Z82.49 Family history of ischemic heart disease and other diseases of the circulatory system; Z72.0 Tobacco use; Z79.899 Other long term (current) drug therapy; Z88.8 Allergy status to other drugs, medicaments and biological substances; Z88.5 Allergy status to narcotic agent; Z88.0 Allergy status to penicillin; Z88.2 Allergy status to sulfonamides; Z91.040 Latex allergy status
CPT/HCPCS: 33286; J2250; J2001

== ENCOUNTER → 2020-12-22 | Outpatient (CLI) | payer MEDICARE, BC ==
[2020-12-22 18:28] LABS: HGB 11.6 g/dL (12.0-15.0); MCH 30.4 pg (27.0-32.0); MCHC 32.2 g/dL (32.0-37.0); MCV 94.2 fL (80.0-97.0); Mean Platelet Volume 9.8 fL (9.5-12.2); Platelet Count 468 X 10*3/uL (140-440); RBC 3.82 X 10*6/uL (4.10-5.20); RDW 12.3 % (11.5-14.5); WBC 7.29 X 10*3/uL (4.50-10.00)
[2020-12-22 20:52] LABS: % Iron Saturation 32.13 (12.00-45.00); African American GFR (CKD) 65.2 (60.0-200.0); Albumin 4.5 g/dL (3.80-4.90); Albumin/Globulin Ratio 2.37 (1.60-3.17); Anion Gap 7.8 mmol/L (4.00-12.00); Calcium 9.7 mg/dL (8.7-10.3); Carbon Dioxide 29.2 mmol/L (21.6-31.8); Chol/HDL Ratio 2.79; Globulin 1.9 g/dL (1.6-3.3); LDL Cholesterol,Calculated 118.2 mg/dL (0.0-131.0); Magnesium 2.4 mg/dL (1.5-2.4); Non-African American GFR(CKD) 56.2 (60.0-200.0); Phosphorus 4.5 mg/dL (2.4-5.1); Potassium 4.2 mmol/L (3.5-5.5); Total Bilirubin 0.5 mg/dL (0.3-1.2); Total Protein 6.4 g/dL (6.2-8.2); VLDL Calculation 19.8 mg/dL (5.00-40.00)
[2020-12-22 21:03] LABS: Ferritin 112.3 ng/mL (10.0-291.0); Folate, Serum 8.4 ng/mL
[2020-12-23 00:24] LABS: INR 0.96 (0.90-1.11); Partial Thromboplastin Time 28.4 sec (23.5-31.0); Prothrombin Time 10.5 sec (9.9-11.9)
[2020-12-24 07:15] LABS: Vitamin A 64 ug/dL (38-106)
[2020-12-24 07:55] LABS: Vit B1(Thiamine) 89 ug/L (38-122)
[2020-12-25 08:10] LABS: Zinc, Serum 62 ug/dL (60-130)
== END | disposition home or self-care (01) ==
LOC: LABWHC1 11:40
PROVIDERS: ATTEND Surgery Plastic and Reconstructive Surgery
DX: N19 Unspecified kidney failure (principal); E55.9 Vitamin D deficiency, unspecified; D50.8 Other iron deficiency anemias; E21.1 Secondary hyperparathyroidism, not elsewhere classified; K90.89 Other intestinal malabsorption; K74.1 Hepatic sclerosis; K50.90 Crohn's disease, unspecified, without complications; E66.01 Morbid (severe) obesity due to excess calories
CPT/HCPCS: 36415; 80053; 80061; 82306; 82525; 82607; 82728; 82746; 83036; 83540; 83550; 83735; 83970; 84100; 84134; 84255; 84425; 84443; 84590; 84630; 85027; 85610; 85730

== ENCOUNTER 2021-01-07 10:12 | Day surgery (SDC) | payer MEDICARE, BC ==
[2021-01-05 08:49] VITALS: BMI 21.0
--- NOTE | 2021-01-07 07:45 | P.GSHP ---
History of Present Illness H&P Date: 01/07/21 CHIEF COMPLAINT: GERD and colon screen HISTORY OF PRESENT ILLNESS: The patient is a 70-year-old female who presents with gastroesophageal reflux disease and need for colon screen. Upper and lower endoscopy were offered for further evaluation and management. PAST MEDICAL HISTORY: Please see list. PAST SURGICAL HISTORY: Please see list. MEDICATIONS: Please see list. ALLERGIES: Please see list. SOCIAL HISTORY: No illicit drug use FAMILY HISTORY: No reports of Crohn disease or ulcerative colitis. REVIEW OF ORGAN SYSTEMS: CONSTITUTIONAL: No reports of fevers or chills. GI: Denies any blood in stools or constipation. PHYSICAL EXAM: VITAL SIGNS: Stable GENERAL: Well-developed pleasant in no acute distress. HEENT: No scleral icterus. Extraocular movements grossly intact. Moist buccal mucosa. NECK: Supple without lymphadenopathy. CHEST: Unlabored respirations. Equal bilateral excursions. CARDIOVASCULAR: Regular rate and rhythm. Distal 2+ pulses. ABDOMEN: Soft, nondistended. MUSCULOSKELETAL: No clubbing, cyanosis, or edema. ASSESSMENT: 1. Gastroesophageal reflux disease 2. Colon screen. PLAN: 1. 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 SKIN CA, BASAL CELL. MENIERE'S. SJOGREN'S. 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 EXC GANGLION CYST left wrist, carpal tunnel LT WRIST, Tendon surgery rt hip. LOOP RECORDER/removed, HIATAL HERNIA repair/later REVISION, EGD, COLONOSCOPY, [facility] cataract Past Anesthesia/Blood Transfusion Reactions: Previous Problems w/ Anesthesia, Family History of Problems w/ Anesthesia, Motion Sickness, Postoperative Nausea & Vomiting (PONV) Additional Past Anesthesia/Blood Transfusion Reaction / Comment(s): general anesthesia caused hallucinations for 3 days after hip surgery(from morphine), LIDOCAINE CAUSES HEART TO RACE; SLOW TO AWAKEN. DAUGHTER AND SISTER HAVE PONV. Smoking Status: Former smoker - Past Family History Mother Family Medical History: Deep Vein Thrombosis (DVT) Father Family Medical History: Cancer Medications and Allergies Home Medications Medication Instructions Recorded Confirmed Type ALPRAZolam 0.5 mg PO TID PRN 12/29/14 01/05/21 History DULoxetine HCL [Cymbalta] 90 mg PO HS 12/29/14 01/05/21 History Meclizine [Antivert] 25 mg PO DAILY PRN 05/28/19 01/05/21 History Triamterene-Hctz 37.5-25Mg 0.5 tab PO DAILY 05/28/19 01/05/21 History [Maxzide 37.5-25] Famotidine [Pepcid] 20 mg PO DAILY PRN 08/24/20 01/05/21 History Elderberry Tab 2 tab PO DAILY 01/05/21 01/05/21 History Ergocalciferol (Vitamin D2) 50 mcg PO DAILY 01/05/21 01/05/21 History [Vitamin D2 (2000 Iu)] Magnesium 500 mg PO DAILY 01/05/21 01/05/21 History Thiamine [Vitamin B-1] 50 mg PO DAILY 01/05/21 01/05/21 History Allergies Allergy/AdvReac Type Severity Reaction Status Date / Time adhesive tape Allergy Rash/Hives Verified 01/05/21 08:35 codeine Allergy "felt like Verified 01/05/21 08:35 i was flying around the room" Iodinated Contrast Media Allergy Dyspnea Verified 01/05/21 08:35 [Iodinated Contrast- Oral and IV Dye] lidocaine Allergy "causes Verified 01/05/21 08:35 heart to race" meperidine [From Demerol] Allergy Rash/Hives Verified 01/05/21 08:35 morphine Allergy FELT LIKE Verified 01/05/21 08:35 I WAS BEING PULLED IN TO BED Penicillins Allergy Rash/Hives Verified 01/05/21 08:35 pravastatin [From Pravachol] Allergy Unknown Verified 01/05/21 08:35 shellfish derived [Shellfish] Allergy Anaphylaxis Verified 01/05/21 08:35 Sulfa (Sulfonamide Allergy Rash/Hives Verified 01/05/21 08:35 Antibiotics) latex AdvReac Severe Anaphylaxis Verified 01/05/21 08:35 povidone-iodine AdvReac hives, Verified 01/05/21 08:36 [From Betadine] itching prednisone AdvReac Confusion Verified 01/05/21 08:35 soap [From Betadine] AdvReac hives, Verified 01/05/21 08:36 itching SURGICAL GLUE Allergy Rash/Hives Uncoded 01/05/21 08:35 iv contrast AdvReac Dyspnea Uncoded 01/05/21 08:35
[2021-01-07 11:01] VITALS: RESP 16; TEMP 98.2
[2021-01-07] MEDS ORDERED: LACTATED RINGERS 1,000 ML IV ONE (11:08)
[2021-01-07] MEDS ORDERED: PROPOFOL 10 MG/ML 20 ML VIAL IV ONE (12:00)
[2021-01-07] MEDS ORDERED: LIDOCAINE 1% INJ 10MG/ML (20 ML MDV) ONE (12:00)
[2021-01-07] MEDS ORDERED: IV FLUID CONTINUATION 1,000 ML IV ONE (12:35)
[2021-01-07 12:45] VITALS: PULSE 73
--- NOTE | 2021-01-07 12:47 | P.PCN ---
Date of Procedure: 01/07/21 Description of Procedure: PREOPERATIVE DIAGNOSIS: Gastroesophageal reflux disease Dysphagia POSTOPERATIVE DIAGNOSIS: Upper esophageal stricture Gastritis with recent bleed OPERATION: Esophagogastroduodenoscopy with rigid dilator over the guidewire 51 Fr with dilation Esophagogastroduodenoscopy with cold forceps biopsies stomach/antrum SURGEON: Hollie Cullen MD ANESTHESIA: MAC. INDICATIONS: The patient is a 70-year-old female who presents with a history of gastroesophageal reflux disease and dysphagia. Benefits and risks of the procedure were described. Informed consent was obtained. DESCRIPTION: The patient was brought into the endoscopy suite and laid in the left lateral decubitus position. After a timeout was confirmed, the procedure was initiated. An Olympus gastroscope was passed into the posterior oropharynx where an upper esophageal stenosis was identified. The scope was passed down to the distal esophagus. To address the upper esophageal stenosis, rigid dilator over guidewire was selected. Next using an Bruneian rigid dilator, a guidewire was placed through the ga stroscope. Next the scope was withdrawn. A 51-Wallisian rigid Bruneian dilator was passed carefully along the posterior oropharynx to 45 cm and left in place for 2-3 minutes stretch. The dilator was withdrawn including the guidewire. The scope was reentered along the posterior oropharynx with no findings of full- thickness tear of the upper esophageal sphincter. Additional findings below. Within the stomach, severe acute gastritis with gastric ulcerations were identified along the body of the stomach with cold forceps biopsies obtained. The large esophageal valve was evaluated with Hill grade 1 lower esophageal valve. LA grade A erosive esophagitis was identified. No full-thickness injury was encountered. The GI tract was desufflated. The patient tolerated the procedure well. FINDINGS: Upper esophageal stenosis dilated 51-Wallisian rigid dilator Diaphragmatic hiatus at 37 cm from the incisors Squamocolumnar junction 37 cm from the incisors. No large recurrent hiatal hernia Gastritis along the gastric body and fundus cold forceps biopsies obtained Duodenum, unremarkable LA grade A erosive esophagitis Hill grade 1 lower esophageal valve. RECOMMENDATIONS: Omeprazole 40 mg daily for 2 weeks
--- NOTE | 2021-01-07 12:52 | P.PCN ---
Date of Procedure: 01/07/21 Description of Procedure: PREOPERATIVE DIAGNOSIS: Colitis Rectal bleeding POSTOPERATIVE DIAGNOSIS: Colitis Diverticulosis OPERATION: Colonoscopy to the sigmoid colon. SURGEON: Hollie Cullen MD. ANESTHESIA: MAC. INDICATIONS: The patient is a 70-year-old female who presents with recent colitis including rectal bleeding requiring hospitalization. Lower endoscopies upper for diagnostic and therapeutic management. Benefits and risks were described and informed consent was obtained. DESCRIPTION OF PROCEDURE: The patient had undergone MiraLAX, Gatorade prep. She had been brought into the operating room and laid in the left lateral decubitus position. After adequate intravenous sedation, the rectum was examined with 2% lidocaine jelly. No external hemorrhoids were encountered. The rectal tone was loose. No lesions were palpated in the rectal vault. An Olympus colonoscope was advanced along the rectum to a very tortuous sigmoid colon. Despite multiple maneuvers, the sigmoid colon had severe tortuosity preventing further advancement of scope. The scope was passed to 30 cm from the anal verge. No evidence of polyps were identified. As the patient posed high risk for perforation with persistence of the procedure, the procedure was discontinued. The colon was desufflated. The patie nt had tolerated the procedure well. Withdrawal time was over 6 minutes. FINDINGS: [place] preparation quality scale 1 (1-5) Tortuous sigmoid colon with stricture preventing further advancement of the scope. No external prolapsed hemorrhoids. Scope advanced to sigmoid colon at 30 cm. No arteriovenous malformations. No adenomatous polyps limited to sigmoid colon RECOMMENDATIONS: Completion of colonoscopy evaluation with barium enema. Recommend partial colectomy Plan - Discharge Summary Discharge Rx Participant: No New Discharge Prescriptions: New Omeprazole [PriLOSEC] 40 mg PO DAILY #14 cap Continue DULoxetine HCL [Cymbalta] 90 mg PO HS ALPRAZolam 0.5 mg PO TID PRN PRN Reason: Anxiety Triamterene-Hctz 37.5-25Mg [Maxzide 37.5-25] 0.5 tab PO DAILY Meclizine [Antivert] 25 mg PO DAILY PRN PRN Reason: Vertigo Famotidine [Pepcid] 20 mg PO DAILY PRN PRN Reason: reflux Elderberry Tab 2 tab PO DAILY Thiamine [Vitamin B-1] 50 mg PO DAILY Magnesium 500 mg PO DAILY Ergocalciferol (Vitamin D2) [Vitamin D2 (2000 Iu)] 50 mcg PO DAILY Discharge Medication List ALPRAZolam 0.5 mg PO TID PRN 12/29/14 [History] DULoxetine HCL [Cymbalta] 90 mg PO HS 12/29/14 [History] Meclizine [Antivert] 25 mg PO DAILY PRN 05/28/19 [History] Triamterene-Hctz 37.5-25Mg [Maxzide 37.5-25] 0.5 tab PO DAILY 05/28/19 [History] Famotidine [Pepcid] 20 mg PO DAILY PRN 08/24/20 [History] Elderberry Tab 2 tab PO DAILY 01/05/21 [History] Ergocalciferol (Vitamin D2) [Vitamin D2 (2000 Iu)] 50 mcg PO DAILY 01/05/21 [History] Magnesium 500 mg PO DAILY 01/05/21 [History] Thiamine [Vitamin B-1] 50 mg PO DAILY 01/05/21 [History] Omeprazole [PriLOSEC] 40 mg PO DAILY #14 cap 01/07/21 [Rx] Follow up Appointment(s)/Referral(s): Hollie Cullen MD [STAFF PHYSICIAN] - 01/12/21 Patient Instructions/Handouts: *Surgery [facility] - (Anesthesia) Endoscopy Discharge Instructions, Colonoscopy (DC), Upper Endoscopy (DC) Discharge Disposition: HOME SELF-CARE
[2021-01-07 12:59] VITALS: BP 126/66
== END 2021-01-07 13:25 | disposition home or self-care (01) ==
LOC: ORWHC2ENDO 10:12
PROVIDERS: ATTEND Surgery Plastic and Reconstructive Surgery
DX: K21.9 Gastro-esophageal reflux disease without esophagitis (principal); R13.10 Dysphagia, unspecified; K22.2 Esophageal obstruction; K29.50 Unspecified chronic gastritis without bleeding; K52.9 Noninfective gastroenteritis and colitis, unspecified; K22.10 Ulcer of esophagus without bleeding; K56.699 Other intestinal obstruction unspecified as to partial versus complete obstruction; K29.60 Other gastritis without bleeding; M79.7 Fibromyalgia; E78.5 Hyperlipidemia, unspecified; M19.90 Unspecified osteoarthritis, unspecified site; M35.00 Sjogren syndrome, unspecified; N05.9 Unspecified nephritic syndrome with unspecified morphologic changes; Z79.899 Other long term (current) drug therapy; Z85.828 Personal history of other malignant neoplasm of skin; Z87.891 Personal history of nicotine dependence; Z80.9 Family history of malignant neoplasm, unspecified; Z88.5 Allergy status to narcotic agent; Z91.041 Radiographic dye allergy status
CPT/HCPCS: 88305; 43239; 43248; 45330; J2001; J2704; 43249

== ENCOUNTER → 2021-01-14 | Outpatient (CLI) | payer MEDICARE, BC ==
--- NOTE | 2021-01-18 09:54 | MM ---
Reason for exam: screening (asymptomatic). Last mammogram was performed 1 year and 4 months ago. History: Patient is postmenopausal and history of other cancer. Family history of breast cancer in mother at age 30 and breast cancer in maternal aunt at age 50. Benign excisional biopsy of the left breast. Benign excisional biopsy of the right breast. Took estrogen for 20 years. Physical Findings: A clinical breast exam by your physician is recommended on an annual basis and results should be correlated with mammographic findings. MG 3D Screening Mammo W/Cad Bilateral CC and MLO view(s) were taken. Prior study comparison: September 27, 2019, bilateral MG 3d screening mammo w/cad. March 22, 2018, bilateral MG 3d diag mammo w/cad [facility]. The breast tissue is extremely dense which could obscure a lesion on mammography. Finding: There are typically benign scattered calcifications in both breasts. ASSESSMENT: Benign, BI-RAD 2 RECOMMENDATION: Routine screening mammogram of both breasts in 1 year.
== END | disposition home or self-care (01) ==
LOC: RADMAMWWP 12:30
PROVIDERS: ATTEND Pediatrics
DX: Z12.31 Encounter for screening mammogram for malignant neoplasm of breast (principal); Z80.3 Family history of malignant neoplasm of breast; Z78.0 Asymptomatic menopausal state
CPT/HCPCS: 77063; 77067

== ENCOUNTER → 2021-02-04 | Outpatient (CLI) | payer MEDICARE, BC ==
[2021-02-04 12:21] LABS: Calcium 9.3 mg/dL (8.4-10.2); Potassium 4.8 mmol/L (3.5-5.1); Total Bilirubin 0.3 mg/dL (0.2-1.3); Total Protein 6.5 g/dL (6.3-8.2)
[2021-02-04 12:22] LABS: HCT 34.2 % (34.0-46.0); HGB 11.5 gm/dL (11.4-16.0); MCH 31.4 pg (25.0-35.0); MCHC 33.5 g/dL (31.0-37.0); MCV 93.5 fL (80.0-100.0); Mean Platelet Volume 7.2; Platelet Count 418 k/uL (150-450); RBC 3.66 m/uL (3.80-5.40); RDW 12.4 % (11.5-15.5)
== END | disposition home or self-care (01) ==
LOC: LABWHC1 11:06
PROVIDERS: ATTEND Surgery Plastic and Reconstructive Surgery
DX: Z01.810 Encounter for preprocedural cardiovascular examination (principal)
CPT/HCPCS: 36415; 80053; 85027

== ENCOUNTER 2021-02-11 08:45 | Inpatient (IN) | payer MEDICARE, BC ==
[2021-02-08 12:29] VITALS: BMI 20.7
[~2021-02-11 08:45] MED LIST changes: -ACETAMINOPHEN TAB 325 MG TAB ONE; -ACETAMINOPHEN TAB 325 MG TAB PO STA; +ACETAMINOPHEN TAB 500 MG TAB PO PRN; +ALVIMOPAN 12 MG CAPSULE PO PRN; -CLINDAMYCIN 900 MG in DEXTROSE 5% IN WATER 50 ML IVPB PRN; +HEPARIN SODIUM,PORCINE/PF 5,000 UNIT/0.5 ML SYRINGE SQ PRN; +HYDROmorphone 0.5 MG/0.5 ML SYRINGE IVP PRN; +LACTATED RINGERS 1,000 ML IV SCH; -LIDOCAINE 1% INJ 10MG/ML (20 ML MDV) ONE; -LIDOCAINE 1% INJ 10MG/ML (20 ML MDV) SQ ONE; +MIDAZOLAM 2 MG/2 ML VIAL IV PRN; +ONDANSETRON 4 MG/2 ML VIAL IVP ONE; -SODIUM CHLORIDE 0.9% 1,000 ML IV SCH
[2021-02-11] MEDS ORDERED: Antibiotics per Pharmacy 1 EACH MISC MISCELLANE PRN (08:51)
--- NOTE | 2021-02-11 08:51 | P.GSHP ---
History of Present Illness H&P Date: 02/11/21 CHIEF COMPLAINT: History of sigmoid diverticulitis HISTORY OF PRESENT ILLNESS: The patient is a 70-year-old female with long- standing history of sigmoid diverticulitis. She has been admitted for diverticulitis attacks in the last 6+ months. She reports worsening symptoms including severe constipation severe lower abdominal pain. She had colonoscopy excluding underlying neoplasm. Now she presents for sigmoid colon resection. PAST MEDICAL HISTORY: Please see list. PAST SURGICAL HISTORY: Please see list. MEDICATIONS: Please see list. ALLERGIES: Please see list. SOCIAL HISTORY: No illicit drug use FAMILY HISTORY: No reports of Crohn disease or ulcerative colitis. REVIEW OF ORGAN SYSTEMS: CONSTITUTIONAL: Denies any fever or chills. HEENT: Denies any trouble with vision or nosebleeds. PHYSICAL EXAM: VITAL SIGNS: Stable GENERAL: Well-developed pleasant in no acute distress. HEENT: No scleral icterus. Extraocular movements grossly intact. Moist buccal mucosa. NECK: Supple without lymphadenopathy. CHEST: Unlabored respirations. Equal bilateral excursions. CARDIOVASCULAR: Regular rate and rhythm. Distal 2+ pulses. ABDOMEN: Soft. Mild tenderness lower abdomen. MUSCULOSKELETAL: No clubbing, cyanosis, or edema. NERUO: Cranial nerves 2-12 grossly intact. PSYCH: Alert and oriented to person place and time. ASSESSMENT: 1. History of perforated diverticulitis 2. Multiple drug ALLERGIES PLAN: 1. Benefits and risks of surgical robotic sigmoid resection was reviewed in detail. Robotic-assisted approach was also described. 2. Enhanced colon recovery program. 3. DVT prophylaxis. 4. Antibiotic prophylaxis. 5. Inpatient hospitalization greater than 2 nights. 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 SKIN CA, BASAL CELL. MENIERE'S. SJOGREN'S. 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 EXC GANGLION CYST left wrist, carpal tunnel LT WRIST, Tendon surgery rt hip. LOOP REC ORDER/removed, HIATAL HERNIA repair/later REVISION, EGD, COLONOSCOPY, chauncey cataract Past Anesthesia/Blood Transfusion Reactions: Previous Problems w/ Anesthesia, Family History of Problems w/ Anesthesia, Motion Sickness, Postoperative Nausea & Vomiting (PONV) Additional Past Anesthesia/Blood Transfusion Reaction / Comment(s): general anesthesia caused hallucinations for 3 days after hip surgery(from morphine), LIDOCAINE CAUSES HEART TO RACE; SLOW TO AWAKEN. DAUGHTER AND SISTER HAVE PONV. Smoking Status: Former smoker - Past Family History Mother Family Medical History: Deep Vein Thrombosis (DVT) Father Family Medical History: Cancer Medications and Allergies Home Medications Medication Instructions Recorded Confirmed Type ALPRAZolam 0.5 mg PO TID PRN 12/29/14 02/08/21 History DULoxetine HCL [Cymbalta] 90 mg PO HS 12/29/14 02/08/21 History Meclizine [Antivert] 25 mg PO DAILY PRN 05/28/19 02/08/21 History Triamterene-Hctz 37.5-25Mg 0.5 tab PO DAILY 05/28/19 02/08/21 History [Maxzide 37.5-25] Elderberry Tab 2 tab PO DAILY 01/05/21 02/08/21 History Magnesium 500 mg PO HS 01/05/21 02/08/21 History Thiamine [Vitamin B-1] 50 mg PO HS 01/05/21 02/08/21 History Omeprazole [PriLOSEC] 40 mg PO DAILY #14 cap 01/07/21 02/08/21 Rx Cholecalciferol [Vitamin D3 (25 50 mcg PO HS 02/08/21 02/08/21 History Mcg = 1000 Iu)] Allergies Allergy/AdvReac Type Severity Reaction Status Date / Time adhesive tape Allergy Rash/Hives Verified 02/08/21 12:17 bee venom protein (honey bee) Allergy Anaphylaxis Verified 02/08/21 12:20 codeine Allergy "felt like Verified 02/08/21 12:17 i was flying around the room" Iodinated Contrast Media Allergy Dyspnea Verified 02/08/21 12:17 [Iodinated Contrast- Oral and IV Dye] lidocaine Allergy "causes Verified 02/08/21 12:17 heart to race" meperidine [From Demerol] Allergy Rash/Hives Verified 02/08/21 12:17 morphine Allergy FELT LIKE Verified 02/08/21 12:17 I WAS BEING PULLED IN TO BED Penicillins Allergy Rash/Hives Verified 02/08/21 12:17 pravastatin [From Pravachol] Allergy Unknown Verified 02/08/21 12:17 shellfish derived [Shellfish] Allergy Anaphylaxis Verified 02/08/21 12:17 Sulfa (Sulfonamide Allergy Rash/Hives Verified 02/08/21 12:17 Antibiotics) latex AdvReac Severe Anaphylaxis Verified 02/08/21 12:17 povidone-iodine AdvReac hives, Verified 02/08/21 12:17 [From Betadine] itching prednisone AdvReac Confusion Verified 02/08/21 12:17 soap [From Betadine] AdvReac hives, Verified 02/08/21 12:17 itching SURGICAL GLUE Allergy Rash/Hives Uncoded 02/08/21 12:17 iv contrast AdvReac Dyspnea Uncoded 02/08/21 12:17
[2021-02-11 11:22] LABS: Basophils # (A) 0.1 k/uL (0-0.2); Basophils % (A) 1 %; Eosinophils % (A) 0 %; HCT 37.3 % (34.0-46.0); HGB 12.5 gm/dL (11.4-16.0); Lymphocytes # (A) 0.9 k/uL (1.0-4.8); Lymphocytes % (A) 10 %; MCHC 33.5 g/dL (31.0-37.0); MCV 92.5 fL (80.0-100.0); Mean Platelet Volume 7.1; Monocytes # (A) 0.4 k/uL (0-1.0); Monocytes % (A) 5 %; Neutrophils # (A) 6.8 k/uL (1.3-7.7); Neutrophils % (A) 83 %; Platelet Count 558 k/uL (150-450); RBC 4.03 m/uL (3.80-5.40); RDW 12.3 % (11.5-15.5); WBC 8.2 k/uL (3.8-10.6)
[2021-02-11 11:27] LABS: ALT 23 U/L (4-34); AST 37 U/L (14-36); African American GFR (CKD) 68 (>60 ml/min/1.73 sqM); Albumin 4.9 g/dL (3.5-5.0); Albumin/Globulin Ratio 1.7; Alkaline Phosphatase 112 U/L (38-126); Anion Gap 12 mmol/L; Blood Urea Nitrogen 12 mg/dL (7-17); Calcium 10.1 mg/dL (8.4-10.2); Carbon Dioxide 27 mmol/L (22-30); Chloride 93 mmol/L (98-107); Globulin 2.9 g/dL; Glucose 126 mg/dL (74-99); Non-African American GFR(CKD) 59 (>60 ml/min/1.73 sqM); Potassium 3.6 mmol/L (3.5-5.1); Sodium 132 mmol/L (137-145); Total Bilirubin 0.7 mg/dL (0.2-1.3); Total Protein 7.8 g/dL (6.3-8.2)
[2021-02-11] MEDS ORDERED: MIDAZOLAM 2 MG/2 ML VIAL IV ONE (11:43)
[2021-02-11] MEDS ORDERED: NEOSTIGMINE 1 MG/ML 10 ML VIAL ONE (12:56)
[2021-02-11] MEDS ORDERED: LIDOCAINE 1% INJ 10MG/ML (20 ML MDV) ONE (12:56)
[2021-02-11] MEDS ORDERED: ROPIVACAINE 5 MG/ML 30 ML VIAL ONE (12:56)
[2021-02-11] MEDS ORDERED: ROCURONIUM 10 MG/ML (5 ML VIAL) IV ONE (12:56)
[2021-02-11] MEDS ORDERED: fentaNYL (PF) 50 MCG/ML 2 ML AMP ONE (12:56)
[2021-02-11] MEDS ORDERED: HYDROmorphone (PF) 1 MG/ML ONE (12:56)
[2021-02-11] MEDS ORDERED: LIDOCAINE 1%-EPI 1:100,000 20 ML VIAL ONE (12:56)
[2021-02-11] MEDS ORDERED: MIDAZOLAM 2 MG/2 ML VIAL ONE (12:56)
[2021-02-11] MEDS ORDERED: SUCCINYLCHOLINE CHLORIDE 100 MG/5 ML SYR IV ONE (12:56)
[2021-02-11] MEDS ORDERED: PROPOFOL 10 MG/ML 20 ML VIAL IV ONE (12:56)
[2021-02-11] MEDS ORDERED: GLYCOPYRROLATE 0.2 MG/ML 2 ML VIAL ONE (12:56)
[2021-02-11] MEDS ORDERED: PHENYLEPHRINE-0.9% NACL SYG 1,000 MCG/10 ML SYRINGE ONE (12:56)
[2021-02-11] MEDS: metroNIDAZOLE-NS PMX 500 MG in SALINE 1 100ML.BAG IVPB PRN ×2 (12:58→13:11)
[2021-02-11] MEDS ORDERED: LIDOCAINE 1%-EPI 1:100,000 20 ML VIAL SQ ONE (12:58)
[2021-02-11] MEDS ORDERED: LACTATED RINGERS 1,000 ML IV ONE (15:00)
[2021-02-11] MEDS ORDERED: METOCLOPRAMIDE 5 MG/ML 2 ML VIAL IVP PRN (16:38)
--- NOTE | 2021-02-11 16:38 | P.OP ---
Date of Procedure: 02/11/21 Description of Procedure: SURGEON: MIRELLA LIAO MD PREOPERATIVE DIAGNOSES: 1. Sigmoid stricture due to sigmoid diverticulitis with chronic constipation 2. Gastroesophageal reflux disease. 3. Multiple drug ALLERGIES 4. History of colitis, recurrent 5. Atrial fibrillation 6. History of cerebral aneurysm 7. Fibromyalgia 8. Sjogren's disease 9. Depressive disorder 10. Anxiety disorder POSTOPERATIVE DIAGNOSES: 1. Sigmoid stricture due to sigmoid diverticulitis with chronic constipation 2. Gastroesophageal reflux disease. 3. Multiple drug ALLERGIES 4. History of colitis, recurrent 5. Atrial fibrillation 6. History of cerebral aneurysm 7. Fibromyalgia 8. Sjogren's disease 9. Depressive disorder 10. Anxiety disorder 11. Peritoneal pelvic adhesions 12. Small bowel volvulus OPERATION: 1. Robotic-assisted daVinci Xi laparoscopic lysis of adhesions 2. Robotic-assisted daVinci Xi laparoscopic with sigmoid colectomy and low anterior resection using 25mm EEA Ethicon powered stapler 3. Intraoperative colonoscopy for flexible sigmoidoscopy Anesthesia: GETA, local, regional Estimated Blood Loss (ml): 5 Pathology: other (Sigmoid colon) Condition: stable Disposition: floor COMPLICATIONS: None. Operative Findings: 1. Moderate omental to abdominal wall adhesions of the pelvis and lower abdomen all lysed 2. Right inguinal hernia small 3. Cecum extended into the pelvis, posterior bladder 4. Cystocele INDICATIONS: The patient is a 70-year-old female with symptomatic sigmoid strict ure due to sigmoid diverticulitis. Surgical intervention was described. Benefits and risks, including infection, bowel injury, ureteral injury, colostomy creation and possibility for additional surgery was discussed at length. Informed consent was obtained. All questions of the patient and family were answered. DESCRIPTION: Earlier the patient had undergone a bowel prep using the enhanced colon recovery program. The patient was transferred to the operating room onto a split leg table and repositioned to modified lithotomy following intubation. A Lomeli catheter was placed. The abdomen was then prepped and draped in standard sterile fashion as Ioban was placed along the abdomen to minimize any contamination of skin floor. After a timeout protocol was performed, attention was then brought to the left upper quadrant whereby a 0 degree 5 mm laparoscopic trocar entry was performed. The abdominal cavity was entered and insufflated to 15 mmHg pressure, which was tolerated well. Diagnostic laparoscopy confirmed severe adhesions omentum to abdominal wall involving the pelvis. Next trocars were placed 15 cm superior from the pelvis. A 12-mm trocar was placed along the right lateral abdominal wall. A 8 mm port was placed along the right upper quadrant. Ports were placed 10 cm apart from each other including 15-20 cm away from the target anatomy of the left pelvis. An 8-mm port was was placed along the left upper quadrant. The stapler 12-mm port was arranged along the left lateral abdominal wall. The patient was then placed in Trendelenburg position, at least 21. The robotic da Rafita XI system was primed. The robot was docked from the right side of the patient. Using atraumatic graspers and vessel sealer, the robotic system was docked and primed as described. Instruments were interchanged by the stylist assistant including needle horse and wagon driver, clip geriatric personal care aide, hook cautery, robotic stapler and vessel sealer. The robot stapler was prepared along the right lateral abdominal wall. Initial attention was brought to lysis of adhesions involving the lower abdomen and pelvis. Lysis of adhesions was performed using vessel sealer for over 30 minutes. Next, attention was brought to sigmoid colon. The sigmoid mesentery was mobilized using a vessel sealer. Using robot stapler 60 mm green loads, the descending colon was divided. Mobilization of the colon was performed to the pelvic brim along the sacral promontory. The mesentery of the sigmoid colon was mobilized towards the descending colon using a vessel sealer. Next, the top of the rectum was divided using robotic stapler 60 mm green loads. The rest of the sigmoid colon mesentery was mobilized using vessel sealer. Additionally, the sigmoid colon was mobilized onto the colon to minimize injury to the ureters. I went to the foot of the bed for selection of a sizer. A colorectal colon anastomosis with an EEA 25-mm was selected after using a sizer along the rectum. Lucency along the vaginal wall and small bladder prolapse cystocele was identified. For the proximal sigmoid colon, a 25-mm anvil was placed after creating a colotomy then closed using a stapler at the distal end. The robot arms were temporarily undocked. A stapler was entered along the rectum and mated to the anvil for 1 minute. The anastomosis was created. The donuts were thick on the rectum side and then on the colon side. I then performed a bedside flexible sigmoidoscopy using colonoscope where no leaks or defects were confirmed as the stylist assistant placed normal saline along the pelvis. I re-scrubbed into the case. Irrigation fluid was suctioned from the abdomen. The robot was undocked. All needles were removed from the abdominal cavity. Via the left lateral 12-mm trocar site, the resected colon was retrieved after widening the skin incision to 3-cm. The fascial defect was oversewn using 0 Vicryl and a Christopher Corea. All incisions were cleansed using dilute normal saline and hydrogen peroxide mixture. Next all pneumoperitoneum was evacuated from the abdominal cavity. The 8-mm trocar sites were reapproximated using 4-0 Monocryl in an interrupted subcuticular fashion. Local anesthetic was infiltrated to all wounds for postop analgesia. All incisions were also cleansed with diluted hydrogen peroxide. An Optifoam surgical dressing was placed over the colon extraction site. The patient was extubated successfully. The patient was transferred to the postanesthesia care unit in stable condition.
[2021-02-11] MEDS ORDERED: MECLIZINE 25 MG TAB PO PRN (16:40)
[2021-02-11] MEDS ORDERED: D5-0.45% NACL WITH KCL 20MEQ/L 1,000 ML IV SCH (16:45)
[2021-02-11] MEDS ORDERED: ONDANSETRON 4 MG/2 ML VIAL IVP ONE (16:52)
[2021-02-11] MEDS ORDERED: diphenhydrAMINE 50 MG/ML 1 ML VIAL IVP ONE (17:00)
[2021-02-11] MEDS: ACETAMINOPHEN IV (For NPO) 650 MG in EMPTY BAG 1 BAG IVPB SCH ×2 (18:19→23:40)
[2021-02-11] MEDS: SODIUM CHLORIDE 0.9% 1,000 ML IV SCH (18:19)
[2021-02-11] MEDS: DULoxetine HCL 30 MG CAPSULE.DR PO SCH (19:55)
--- NOTE | 2021-02-11 19:57 | P.ANPRN ---
Procedure Note - Anesthesia - Nerve Block Performed Bilateral Erector Spinae Single Time Out Performed: Yes Date of Procedure: 02/11/21 Procedure Start Time: 11:43 Procedure Stop Time: 11:50 Location of Patient: PreOp Indication: Acute Post-Operative Pain, Requested by Surgeon Sedation Type: Sedate with meaningful contact maintained Preparation: Sterile Prep Position: Prone Needle Types: Pajunk Needle Gauge: 21 Ultrasound used to visualize needle placement: Yes Ultrasound used to observe medication spread: Yes Blood Aspirated: No Pain Paresthesia on Injection Noted: No Resistance on Injection: Normal Image Stored and Saved: Yes Events: Uneventful and Well Tolerated (ropi .5% 15cc plus xylo 1% with epi 15cc bilaterally at L1)
[2021-02-11] MEDS ORDERED: HYDROmorphone 0.5 MG/0.5 ML SYRINGE IVP PRN (22:14)
[2021-02-12] MEDS: HYDROmorphone 1 MG/ML 1 ML SYRINGE IVP PRN ×4 (00:42→22:22)
[2021-02-12] MEDS: ACETAMINOPHEN IV (For NPO) 650 MG in EMPTY BAG 1 BAG IVPB SCH ×2 (05:31→12:49)
[2021-02-12] MEDS: TRIAMTERENE-HCTZ 37.5-25MG 1 EACH TAB PO SCH (07:18)
[2021-02-12] MEDS: ONDANSETRON 4 MG/2 ML VIAL IVP PRN ×2 (07:18→13:31)
[2021-02-12] MEDS: ALVIMOPAN 12 MG CAPSULE PO SCH ×2 (07:18→21:12)
[2021-02-12] MEDS ORDERED: LORazepam 2 MG/ML INJ IV STA (08:57)
[2021-02-12 09:07] LABS: Basophils # (A) 0.11 X 10*3/uL (0.00-0.10); Basophils % (A) 1.1 %; Eosinophils # (A) 0.04 X 10*3/uL (0.04-0.35); Eosinophils % (A) 0.4 %; HCT 30.7 % (37.2-46.3); HGB 9.7 g/dL (12.0-15.0); Lymphocytes # (A) 1.63 X 10*3/uL (0.90-5.00); Lymphocytes % (A) 16.3 %; MCH 30.2 pg (27.0-32.0); MCHC 31.6 g/dL (32.0-37.0); MCV 95.6 fL (80.0-97.0); Mean Platelet Volume 9.9 fL (9.5-12.2); Monocytes # (A) 1.21 X 10*3/uL (0.20-1.00); Monocytes % (A) 12.1 %; Neutrophils # (A) 6.98 X 10*3/uL (1.80-7.70); Neutrophils % (A) 69.7 %; Platelet Count 421 X 10*3/uL (140-440); RBC 3.21 X 10*6/uL (4.10-5.20); RDW 12.8 % (11.5-14.5); WBC 10.01 X 10*3/uL (4.50-10.00)
[2021-02-12 09:26] LABS: Anion Gap 7.9 mmol/L (4.00-12.00); BUN/Creat Ratio 8.89 Ratio (12.00-20.00); Calcium 8.7 mg/dL (8.7-10.3); Carbon Dioxide 28.1 mmol/L (21.6-31.8); Non-African American GFR(CKD) 63.9 (60.0-200.0); Potassium 3.3 mmol/L (3.5-5.5)
[2021-02-12] MEDS: LEVOFLOXACIN 500MG-D5W PMX 500 MG in DEXTROSE/WATER 1 100ML.BAG IVPB SCH (10:21)
[2021-02-12] MEDS: SIMETHICONE 40 MG/0.6 ML DROPS 2,000 MG/30 ML BOTTLE PO SCH ×4 (10:22→21:19)
[2021-02-12] MEDS: 0.9% NACL WITH KCL 40 MEQ/L 1,000 ML IV SCH ×2 (11:58→21:11)
[2021-02-12] MEDS ORDERED: SCOPOLAMINE 1.5MG/72HR PATCH TRANSDERM SCH (12:00)
--- NOTE | 2021-02-12 13:18 | P.PN ---
Subjective Progress Note Date: 02/12/21 CHIEF COMPLAINT: History of sigmoid diverticulitis HISTORY OF PRESENT ILLNESS: The patient is a 70-year-old female with history of colitis. She status post low anterior resection sigmoid colectomy. She reported chest pain. She has pre-existing heart disease. She is yet to ambulate. She has history of multiple drug ALLERGIES. She has baseline history of generalized anxiety disorder. REVIEW OF ORGAN SYSTEMS: Has left chest pain. Reports nausea. No shortness of breath. PHYSICAL EXAM: VITAL SIGNS: Stable GENERAL: Well-developed pleasant in no acute distress. HEENT: No scleral icterus. Extraocular movements grossly intact. Moist buccal mucosa. NECK: Supple without lymphadenopathy. CHEST: Unlabored respirations. Equal bilateral excursions. CARDIOVASCULAR: Regular rate and rhythm. Distal 2+ pulses. ABDOMEN: Incisions clean dry and intact. MUSCULOSKELETAL: No clubbing, cyanosis, or edema. NERUO: Cranial nerves 2-12 grossly intact. PSYCH: Alert and oriented to person place and time. LABS: Reviewed. White count 10.0 and hemoglobin 9.7, Potassium low 3.3 ASSESSMENT: 1. History of sigmoid diverticulitis 2. Hypokalemia 3. Generalized anxiety disorder PLAN: 1. IV fluids adjusted to potassium supplement 2. Troponin sent with EKG obtained 3. Additionally started on Gas-X with antinausea medications adjusted. 4. Await passage of flatus. 5. Recommend ambulation Objective - Vital Signs Vital signs: Vital Signs Temp 97.6 F 02/12/21 08:57 Pulse 90 02/12/21 08:57 Resp 18 02/12/21 08:57 BP 146/74 02/12/21 08:57 Pulse Ox 98 02/12/21 08:57 Intake & Output 02/11/21 02/12/21 02/12/21 18:59 06:59 18:59 Intake Total 1350 Output Total 255 Balance 1095 Weight 52 kg Intake: IV 1350 Output: Urine 250 Estimated Blood Loss 5 Other: Voiding Method Bedpan # Voids 2 - Labs CBC & Chem 7: 02/12/21 05:40 02/12/21 03:52 Labs: Abnormal Lab Results - Last 24 Hours (Table) 02/12/21 02/12/21 Range/Units 03:52 05:40 WBC 10.01 H (4.50-10.00) X 10*3/uL RBC 3.21 L (4.10-5.20) X 10*6/uL Hgb 9.7 L (12.0-15.0) g/dL Hct 30.7 L (37.2-46.3) % MCHC 31.6 L (32.0-37.0) g/dL Monocytes # 1.21 H (0.20-1.00) X 10*3/uL Basophils # 0.11 H (0.00-0.10) X 10*3/uL Potassium 3.3 L (3.5-5.5) mmol/L BUN 8.0 L (9.0-27.0) mg/dL BUN/Creatinine Ratio 8.89 L (12.00-20.00) Ratio Glucose 114 H (70-110) mg/dL Assessment and Plan (1) Generalized anxiety disorder Current Visit: Yes Status: Acute Code(s): F41.1 - GENERALIZED ANXIETY DISORDER SNOMED Code(s): 08431266 (2) S/P colon resection Current Visit: Yes Status: Acute Code(s): Z90.49 - ACQUIRED ABSENCE OF OTHER SPECIFIED PARTS OF DIGESTIVE TRACT SNOMED Code(s): 494619368 (3) Diverticulitis Current Visit: Yes Status: Acute Code(s): K57.92 - DVTRCLI OF INTEST, PART UNSP, W/O PERF OR ABSCESS W/O BLEED SNOMED Code(s): 861758096
[2021-02-12] MEDS: ALPRAZolam 0.5 MG TAB PO PRN ×2 (13:31→21:12)
[2021-02-12] MEDS: metroNIDAZOLE-NS PMX 500 MG in SALINE 1 100ML.BAG IVPB SCH ×2 (16:41→23:42)
[2021-02-12] MEDS ORDERED: SODIUM CHLORIDE 0.9% 1,000 ML IV ONE (19:06)
[2021-02-12] MEDS: SODIUM CHLORIDE 0.9% 1,000 ML IV SCH (19:51)
[2021-02-12] MEDS: KETOROLAC 15 MG/ML 1 ML VIAL IVP SCH (19:58)
[2021-02-12] MEDS: ACETAMINOPHEN TAB 325 MG TAB PO SCH (19:59)
[2021-02-12] MEDS: DULoxetine HCL 30 MG CAPSULE.DR PO SCH (21:18)
[2021-02-13] MEDS: ACETAMINOPHEN TAB 325 MG TAB PO SCH ×3 (02:24→13:22)
[2021-02-13] MEDS: KETOROLAC 15 MG/ML 1 ML VIAL IVP SCH ×3 (02:24→13:25)
[2021-02-13] MEDS: ONDANSETRON 4 MG/2 ML VIAL IVP PRN (02:26)
[2021-02-13 07:24] VITALS: RESP 18
[2021-02-13] MEDS: ALPRAZolam 0.5 MG TAB PO PRN (08:02)
[2021-02-13] MEDS: ALVIMOPAN 12 MG CAPSULE PO SCH (08:02)
[2021-02-13] MEDS: metroNIDAZOLE-NS PMX 500 MG in SALINE 1 100ML.BAG IVPB SCH (08:05)
[2021-02-13] MEDS: SIMETHICONE 40 MG/0.6 ML DROPS 2,000 MG/30 ML BOTTLE PO SCH ×2 (08:06→13:26)
[2021-02-13] MEDS: 0.9% NACL WITH KCL 40 MEQ/L 1,000 ML IV SCH (08:19)
[2021-02-13] MEDS: TRIAMTERENE-HCTZ 37.5-25MG 1 EACH TAB PO SCH (09:13)
[2021-02-13] MEDS: LEVOFLOXACIN 500MG-D5W PMX 500 MG in DEXTROSE/WATER 1 100ML.BAG IVPB SCH (09:48)
[2021-02-13 12:11] LABS: Basophils # (A) 0.12 X 10*3/uL (0.00-0.10); Basophils % (A) 1.7 %; Eosinophils # (A) 0.14 X 10*3/uL (0.04-0.35); HCT 29.1 % (37.2-46.3); HGB 9.5 g/dL (12.0-15.0); Lymphocytes # (A) 1.04 X 10*3/uL (0.90-5.00); Lymphocytes % (A) 14.7 %; MCHC 32.6 g/dL (32.0-37.0); MCV 95.1 fL (80.0-97.0); Mean Platelet Volume 9.8 fL (9.5-12.2); Monocytes % (A) 9.9 %; Neutrophils # (A) 5.04 X 10*3/uL (1.80-7.70); Neutrophils % (A) 71.4 %; Platelet Count 397 X 10*3/uL (140-440); RBC 3.06 X 10*6/uL (4.10-5.20); RDW 12.6 % (11.5-14.5); WBC 7.06 X 10*3/uL (4.50-10.00)
[2021-02-13 13:26] LABS: African American GFR (CKD) 85.4 (60.0-200.0); Blood Urea Nitrogen <5.0 mg/dL (9.0-27.0); Calcium 8.7 mg/dL (8.7-10.3); Carbon Dioxide 28.7 mmol/L (21.6-31.8); Chloride 101 mmol/L (96-109); Glucose 106 mg/dL (70-110); Non-African American GFR(CKD) 73.7 (60.0-200.0); Potassium 3.7 mmol/L (3.5-5.5); Sodium 136 mmol/L (135-145)
[2021-02-13] MEDS ORDERED: diphenhydrAMINE 50 MG/ML 1 ML VIAL IVP STA (14:16)
--- NOTE | 2021-02-13 14:16 | P.PN ---
Subjective Progress Note Date: 02/13/21 CHIEF COMPLAINT: History of sigmoid diverticulitis HISTORY OF PRESENT ILLNESS: The patient is a 70-year-old female with history of colitis. She status post low anterior resection sigmoid colectomy. She is passing flatus. She routinely has nausea after surgery as she reports allergy to medications like decadron to prevent post op nausea or vomiting. She is eager to eat more. REVIEW OF ORGAN SYSTEMS: No fevers or chills. Chest pain resolved. PHYSICAL EXAM: VITAL SIGNS: Stable GENERAL: Well-developed pleasant in no acute distress. HEENT: No scleral icterus. Extraocular movements grossly intact. Moist buccal mucosa. NECK: Supple without lymphadenopathy. CHEST: Unlabored respirations. Equal bilateral excursions. CARDIOVASCULAR: Regular rate and rhythm. Distal 2+ pulses. ABDOMEN: Incisions clean dry and intact. No peritonitis. MUSCULOSKELETAL: No clubbing, cyanosis, or edema. NERUO: Cranial nerves 2-12 grossly intact. PSYCH: Alert and oriented to person place and time. LABS: WBC normal. Potassium bormal. ASSESSMENT: 1. History of sigmoid diverticulitis 2. Hypokalemia 3. Generalized anxiety disorder PLAN: 1. Advance diet. 2. Discharge following tolerating diet 3. Colectomy diet reviewed including avoiding steaks, meats, and seeds. Objective - Vital Signs Vital signs: Vital Signs Temp 99.2 F 02/13/21 07:23 Pulse 87 02/13/21 10:55 Resp 18 02/13/21 10:55 BP 166/77 02/13/21 07:23 Pulse Ox 96 02/13/21 07:23 Intake & Output 02/12/21 02/13/21 02/13/21 18:59 06:59 18:59 Intake Total 200 Balance 200 Intake: Intake, IV Titration 200 Amount Levofloxacin 500Mg-D5w 100 Pmx 500 mg In Dextrose/ Water 1 100ml.bag @ 100 mls/hr IVPB Q24HR [facility] Rx# :[id number] metroNIDAZOLE-NS PMX 500 100 mg In Saline 1 100ml.bag @ 100 mls/hr IVPB Q8HR [facility] Rx#:[id number] Other: Voiding Method Bedpan Toilet Toilet # Voids 4 - Labs CBC & Chem 7: 02/13/21 07:08 02/13/21 07:08 Assessment and Plan (1) Generalized anxiety disorder Current Visit: Yes Status: Acute Code(s): F41.1 - GENERALIZED ANXIETY DISORDER SNOMED Code(s): 89566374 (2) S/P colon resection Current Visit: Yes Status: Acute Code(s): Z90.49 - ACQUIRED ABSENCE OF OTHER SPECIFIED PARTS OF DIGESTIVE TRACT SNOMED Code(s): 145211583 (3) Diverticulitis Current Visit: Yes Status: Acute Code(s): K57.92 - DVTRCLI OF INTEST, PART UNSP, W/O PERF OR ABSCESS W/O BLEED SNOMED Code(s): 026519621
--- NOTE | 2021-02-13 14:28 | P.DS ---
Providers Date of admission: 02/11/21 10:04 Expected date of discharge: 02/13/21 Attending physician: Hollie Cullen Consults: 02/11/21 08:52 Consult Physician Routine Consulting Provider: [facility] Consult Reason/Comments: Regional block Do you want consulting provider notified?: Yes Primary care physician: David Love - Discharge Diagnosis(es) (1) Generalized anxiety disorder Current Visit: Yes Status: Acute (2) S/P colon resection Current Visit: Yes Status: Acute (3) Diverticulitis Current Visit: Yes Status: Acute Hospital Course: CHIEF COMPLAINT: History of sigmoid diverticulitis HISTORY OF PRESENT ILLNESS: The patient is a 70-year-old female with history of colitis. She status post low anterior resection sigmoid colectomy. She is passing flatus. She routinely has nausea after surgery as she reports allergy to medications like decadron to prevent post op nausea or vomiting. She is eager to eat more. REVIEW OF ORGAN SYSTEMS: No fevers or chills. Chest pain resolved. PHYSICAL EXAM: VITAL SIGNS: Stable GENERAL: Well-developed pleasant in no acute distress. HEENT: No scleral icterus. Extraocular movements grossly intact. Moist buccal mucosa. NECK: Supple without lymphadenopathy. CHEST: Unlabored respirations. Equal bilateral excursions. CARDIOVASCULAR: Regular rate and rhythm. Distal 2+ pulses. ABDOMEN: Incisions clean dry and intact. No peritonitis. MUSCULOSKELETAL: No clubbing, cyanosis, or edema. NERUO: Cranial nerves 2-12 grossly intact. PSYCH: Alert and oriented to person place and time. LABS: WBC normal. Potassium bormal. ASSESSMENT: 1. History of sigmoid diverticulitis 2. Hypokalemia 3. Generalized anxiety disorder PLAN: 1. Advance diet. 2. Discharge following tolerating diet 3. Colectomy diet reviewed including avoiding steaks, meats, and seeds. Patient Condition at Discharge: Good Plan - Discharge Summary Discharge Rx Participant: Yes New Discharge Prescriptions: New Ibuprofen [Motrin] 600 mg PO Q8HR PRN #30 tab PRN Reason: Pain Acetaminophen [Tylenol] 650 mg PO Q4H #30 tab Continue DULoxetine HCL [Cymbalta] 90 mg PO HS ALPRAZolam 0.5 mg PO TID PRN PRN Reason: Anxiety Triamterene-Hctz 37.5-25Mg [Maxzide 37.5-25] 0.5 tab PO DAILY Meclizine [Antivert] 25 mg PO DAILY PRN PRN Reason: Vertigo Elderberry Tab 2 tab PO DAILY Cholecalciferol [Vitamin D3 (25 Mcg = 1000 Iu)] 50 mcg PO HS Thiamine [Vitamin B-1] 50 mg PO HS Magnesium 500 mg PO HS Discontinued Omeprazole [PriLOSEC] 40 mg PO DAILY #14 cap Discharge Medication List ALPRAZolam 0.5 mg PO TID PRN 12/29/14 [History] DULoxetine HCL [Cymbalta] 90 mg PO HS 12/29/14 [History] Meclizine [Antivert] 25 mg PO DAILY PRN 05/28/19 [History] Triamterene-Hctz 37.5-25Mg [Maxzide 37.5-25] 0.5 tab PO DAILY 05/28/19 [History] Elderberry Tab 2 tab PO DAILY 01/05/21 [History] Magnesium 500 mg PO HS 01/05/21 [History] Thiamine [Vitamin B-1] 50 mg PO HS 01/05/21 [History] Cholecalciferol [Vitamin D3 (25 Mcg = 1000 Iu)] 50 mcg PO HS 02/08/21 [History] Acetaminophen [Tylenol] 650 mg PO Q4H #30 tab 02/13/21 [Rx] Ibuprofen [Motrin] 600 mg PO Q8HR PRN #30 tab 02/13/21 [Rx] Follow up Appointment(s)/Referral(s): Hollie Cullen MD [STAFF PHYSICIAN] - 02/16/21 Patient Instructions/Handouts: Colectomy (DC), Laparoscopic Bowel Resection (IP), Colectomy Diet (DC) Activity/Diet/Wound Care/Special Instructions: EXPECT BLOOD IN STOOLS Use antibacterial soap when showering and use hydrogen peroxide along incisions Wear abdominal binder at all times for comfort. No lifting over 10 pounds in 4 weeks until March 13. December shower. No bath tub soaks for two weeks until February 25 Avoid steak, tough meats and seeds such as raspberry seeds. No driving while on narcotics. Use Tylenol scheduled for the next 24-48 hours for best pain relief. Use ice along incisions for today to prevent swelling. Discharge Disposition: HOME SELF-CARE
[2021-02-13 14:36] VITALS: PULSE 83; TEMP 98.4
[2021-02-13 14:42] VITALS: BP 182/75
[2021-02-13] MEDS ORDERED: diphenhydrAMINE 25 MG CAP PO STA (14:59)
--- NOTE | 2021-02-15 14:41 | CDI ---
Documentation Clarification Form Date: 02/15/2021 01:48:00 PM From: Gloria Bird Admit Date: 02/11/2021 10:04:00 AM Patient Name: Brina Rivera Visit Number: [id number] Discharge Date: 02/13/2021 03:31:00 PM ATTENTION: The Clinical Documentation Specialists (CDI) and [facility] Coding Staff appreciate your assistance in clarifying documentation. Please respond to the clarification below the line at the bottom and electronically sign. The CDI & [facility] Coding staff will review the response and follow-up if needed. Please note: Queries are made part of the Legal Health Record. If you have any questions, please contact the author of this message via ITS. Dr. Hollie Cullen Diagnostic laparoscopy confirmed severe adhesions omentum to abdominal wall, which is documented in the Operative Report on 02/11/21/ Additional clarification is needed if adhesions were extensive. Please clarify History/Risk factors: diverticulitis with sigmoid colectomyh Pre-Operative Diagnosis: Sigmoid stricture due to sigmoid diverticulitis Postoperative Diagnosis: Abdominal wall adhesions of pelvis and lower abdomen, right inguinal hernia, Cecum extended into bladder, cystocele. Treatment: LYsis of adhesions Please clarify the following: [remove unnecessary options] [X ] Lysis of extensive adhesions [ ] Lysis of adhesions not extensive [ ] Other: [ } Unable to determine extensive lysis of adhesions, please see amended report KM 02/16/21 [id number] MTDD
== END 2021-02-13 15:31 | disposition home or self-care (01) | DRG 335 ==
LOC: 2ORMAIN 10:04 → 4SSUR 16:48
PROVIDERS: ADMIT Surgery Plastic and Reconstructive Surgery; ATTEND Surgery Plastic and Reconstructive Surgery
PROC: 0DBP3ZZ Excision of Rectum, Percutaneous Approach (ICD-10-PCS; 2021-02-11)
PROC: 0DBNFZZ Excision of Sigmoid Colon, Via Natural or Artificial Opening With Percutaneous Endoscopic Assistance (ICD-10-PCS; principal; 2021-02-11 11:55)
PROC: 8E0W4CZ Robotic Assisted Procedure of Trunk Region, Percutaneous Endoscopic Approach (ICD-10-PCS; principal; 2021-02-11 11:55)
PROC: 0DJD8ZZ Inspection of Lower Intestinal Tract, Via Natural or Artificial Opening Endoscopic (ICD-10-PCS; principal; 2021-02-11 11:55)
PROC: 0DNU4ZZ Release Omentum, Percutaneous Endoscopic Approach (ICD-10-PCS; principal; 2021-02-11 11:55)
DX: K57.32 Diverticulitis of large intestine without perforation or abscess without bleeding (principal); K56.2 Volvulus; K66.0 Peritoneal adhesions (postprocedural) (postinfection); K40.90 Unilateral inguinal hernia, without obstruction or gangrene, not specified as recurrent; K21.9 Gastro-esophageal reflux disease without esophagitis; M35.00 Sjogren syndrome, unspecified; I48.91 Unspecified atrial fibrillation; E78.5 Hyperlipidemia, unspecified; E87.6 Hypokalemia; F32.9 Major depressive disorder, single episode, unspecified; F41.1 Generalized anxiety disorder; M79.7 Fibromyalgia; F41.9 Anxiety disorder, unspecified; N99.3 Prolapse of vaginal vault after hysterectomy; Z85.828 Personal history of other malignant neoplasm of skin; Z87.891 Personal history of nicotine dependence; Z88.5 Allergy status to narcotic agent; Z88.8 Allergy status to other drugs, medicaments and biological substances; Z91.030 Bee allergy status; K59.09 Other constipation; Z20.822 Contact with and (suspected) exposure to COVID-19; H81.09 Meniere's disease, unspecified ear; N05.9 Unspecified nephritic syndrome with unspecified morphologic changes; M19.90 Unspecified osteoarthritis, unspecified site; Z90.89 Acquired absence of other organs; Z98.42 Cataract extraction status, left eye; Z98.41 Cataract extraction status, right eye
CPT/HCPCS: 64999; 76942; 80048; 80053; 84484; 85025; 86850; 86900; 86901; 87635; 88307; 93005

== ENCOUNTER → 2021-06-02 | Outpatient (CLI) | payer MEDICARE, BC ==
[2021-06-02 18:53] LABS: Basophils # (A) 0.14 X 10*3/uL (0.00-0.10); Basophils % (A) 2.1 %; Eosinophils # (A) 0.09 X 10*3/uL (0.04-0.35); Eosinophils % (A) 1.4 %; HCT 35.7 % (37.2-46.3); HGB 11.5 g/dL (12.0-15.0); Lymphocytes # (A) 1.74 X 10*3/uL (0.90-5.00); Lymphocytes % (A) 26.6 %; MCH 30.3 pg (27.0-32.0); MCHC 32.2 g/dL (32.0-37.0); MCV 94.2 fL (80.0-97.0); Mean Platelet Volume 9.4 fL (9.5-12.2); Monocytes # (A) 0.63 X 10*3/uL (0.20-1.00); Monocytes % (A) 9.6 %; Neutrophils # (A) 3.91 X 10*3/uL (1.80-7.70); Platelet Count 491 X 10*3/uL (140-440); RBC 3.79 X 10*6/uL (4.10-5.20); Reticulocyte % 1.14 % (0.10-1.80); WBC 6.53 X 10*3/uL (4.50-10.00)
[2021-06-02 21:35] LABS: % Iron Saturation 21.43 (12.00-45.00); Iron 76 ug/dL (50-170); Total Iron Binding Capacity 353 ug/dL (228-460)
[2021-06-03 16:56] LABS: ALT 13 U/L (8-44); AST 14 U/L (13-35); African American GFR (CKD) 63.6 (60.0-200.0); Albumin 4.3 g/dL (3.8-4.9); Albumin/Globulin Ratio 1.92 (1.60-3.17); BUN/Creat Ratio 16.37 Ratio (12.00-20.00); Blood Urea Nitrogen 16.7 mg/dL (9.0-27.0); C Reactive Protein <0.30 mg/dL (0.00-0.80); Calcium 9.7 mg/dL (8.7-10.3); Carbon Dioxide 22.4 mmol/L (21.6-31.8); Chloride 91 mmol/L (96-109); Globulin 2.3 g/dL (1.6-3.3); Glucose 98 mg/dL (70-110); Non-African American GFR(CKD) 54.9 (60.0-200.0); Potassium 4.4 mmol/L (3.5-5.5); Sodium 131 mmol/L (135-145); Total Protein 6.6 g/dL (6.2-8.2)
[2021-06-03 18:16] LABS: Alkaline Phosphatase 91 U/L (41-126)
[2021-06-04 14:03] LABS: Growth Hormone, Human <0.1 ng/mL (<10)
== END | disposition home or self-care (01) ==
LOC: LABWHC1 10:30
PROVIDERS: ATTEND Psychiatry & Neurology Pain Medicine
DX: R53.81 Other malaise (principal); R53.82 Chronic fatigue, unspecified
CPT/HCPCS: 36415; 80053; 82306; 82533; 82607; 82626; 82668; 82728; 83001; 83002; 83003; 83036; 83540; 83550; 84207; 84305; 84439; 84443; 84466; 84481; 85025; 85045; 86140

== ENCOUNTER → 2022-06-03 | Outpatient (CLI) | payer MEDICARE, BC ==
--- NOTE | 2022-06-03 13:44 | CT ---
EXAMINATION TYPE: CT ChestAbdPelvis w con CT DLP: 439.90 mGycm, Automated exposure control for dose reduction was used. DATE OF EXAM: 06/03/2022 1:30 PM COMPARISON: CT abdomen and pelvis 07/30/2019, chest radiograph/RIBS left 08/08/2019, CTA chest 03/20/20 19. CLINICAL INDICATION:Female, 71 years old with history of R07.1 CHEST PAIN ON BREATHING, R10.9; PHH, C hest pain, pain under ribs, abdomen pain Hx skin ca Technique: Multiple axial images of the chest, abdomen, and pelvis were obtained following the intrav enous administration of 100 mL Isovue-370. Oral contrast was administered. Two-dimensional coronal an d sagittal reconstructions were obtained. Findings: CHEST: LUNGS/ PLEURA: No pneumothorax, pleural effusion, focal consolidation. Lingular scarring noted. No co ncerning pulmonary nodules or mass. AIRWAY: Patent and unremarkable.. HEART: Size within normal limits. No pericardial effusion. MEDIASTINUM: No gross evidence of adenopathy. VASCULATURE: No aortic aneurysm. MUSCULOSKELETAL: No acute osseous abnormalities. No aggressive osseous lesion. SOFT TISSUES/LYMPH NODES: Unremarkable. LOWER NECK: No significant findings. ABDOMEN: ABDOMEN LIVER: Subcentimeter hypodense lesion within the left hepatic lobe which is too small to characterize but likely represents a cyst or hemangioma. GALLBLADDER AND BILE DUCTS: Gallbladder is surgically absent. No biliary ductal dilatation. PANCREAS: Unremarkable. SPLEEN: Unremarkable. ADRENAL GLANDS: Unremarkable. KIDNEYS AND URETERS: No evidence of hydronephrosis or renal calculus. The kidneys enhance symmetrical ly. There are 2 subcentimeter hypodense lesion in the left kidney which are too small to characterize but likely represent cysts. Contrast is demonstrated within both collecting systems on the delayed p hase. PELVIS BLADDER: Underdistended, limiting evaluation. REPRODUCTIVE: The uterus is surgically absent. No suspicious adnexal mass. ABDOMEN & PELVIS STOMACH AND BOWEL: Stomach and duodenum are unremarkable. No focal wall thickening or surrounding inf lammatory changes. No evidence of bowel obstruction. PERITONEUM: No evidence of pneumoperitoneum or free fluid. Pelvic floor laxity. VASCULATURE: Mild atherosclerotic calcifications are present throughout the abdominal aorta and its b ranches. No abdominal aortic aneurysm. MUSCULOSKELETAL: No acute osseous abnormalities. No aggressive osseous lesion. LYMPH NODES: No gross evidence for lymphadenopathy. SOFT TISSUE/ABDOMINAL WALL: Small fat filled periumbilical hernia. IMPRESSION: No acute process within the chest, abdomen and pelvis.
== END | disposition home or self-care (01) ==
LOC: RADCTMAIN 11:31
PROVIDERS: ATTEND Internal Medicine Hematology & Oncology
DX: R10.9 Unspecified abdominal pain (principal); R07.1 Chest pain on breathing
CPT/HCPCS: 82565; 84520; 71260; 74177; 36415; Q9967

== ENCOUNTER → 2022-07-26 | Outpatient (CLI) | payer MEDICARE, BC ==
--- NOTE | 2022-07-27 08:32 | MM ---
Reason for Exam: Screening (asymptomatic). Last mammogram was performed 1 year(s) and 6 month(s) ago. Patient History: Menarche at age 10. First Full-Term at age 16. Left ovary removed at age 21. Right ovary removed at age 21. Hysterectomy at age 21. Postmenopausal. Patient has history of breast feeding. Patient used Estrogen for 20 years. Benign Excisional Biopsy on the right side. Benign Excisional Biopsy on the left side. Maternal aunt had breast cancer, age 50. Mother had breast cancer, age 30. Risk Values: Thea 5 year model risk: 4.9%. NCI Lifetime model risk: 11.0%. Prior Study Comparison: 05/23/2012 Bilateral Screening Mammogram, [facility]. 09/22/2014 Bilateral Diagnostic Mammogram, [facility]. 03/22/2018 Bilateral Diagnostic Mammogram, [facility]. 09/27/2019 Bilateral Screening Mammogram, [facility]. 01/14/2021 Bilateral Screening Mammogram, [facility]. Tissue Density: The breast tissue is heterogeneously dense. This may lower the sensitivity of mammography. Findings: Analyzed By CAD. Asymmetric density upper outer left breast 8 cm from the nipple. No suspicious microcalcifications seen within either breast. Overall Assessment: Incomplete: need additional imaging evaluation, BI-RAD 0 Management: Diagnostic Mammogram of the left breast. A clinical breast exam by your physician is recommended on an annual basis and results should be correlated with mammographic findings. Electronically signed and approved by: Harman Jj M.D. Radiologis
== END | disposition home or self-care (01) ==
LOC: RADMAMWWP 09:17
PROVIDERS: ATTEND Pediatrics
DX: Z12.31 Encounter for screening mammogram for malignant neoplasm of breast (principal); Z80.3 Family history of malignant neoplasm of breast; Z78.0 Asymptomatic menopausal state; Z98.890 Other specified postprocedural states
CPT/HCPCS: 77063; 77067

== ENCOUNTER → 2022-07-29 | Outpatient (CLI) | payer MEDICARE, BC ==
--- NOTE | 2022-07-29 11:17 | MM ---
Reason for Exam: Additional evaluation requested from abnormal screening. Last screening mammogram was performed less than 1 month ago. Patient History: Menarche at age 10. First Full-Term at age 16. Left ovary removed at age 21. Right ovary removed at age 21. Hysterectomy at age 21. Postmenopausal. Patient has history of breast feeding. Patient used Estrogen for 20 years. Benign Excisional Biopsy on the right side. Benign Excisional Biopsy on the left side. Maternal aunt had breast cancer, age 50. Mother had breast cancer, age 30. Risk Values: Thea 5 year model risk: 4.9%. NCI Lifetime model risk: 11.0%. Prior Study Comparison: 09/27/2019 Bilateral Screening Mammogram, [facility]. 01/14/2021 Bilateral Screening Mammogram, [facility]. 07/26/2022 Bilateral MG 3D screening mammo w/cad, [facility]. Tissue Density: Left: The breast tissue is heterogeneously dense. This may lower the sensitivity of mammography. Findings: Analyzed By CAD. No persistent suspicious distortion is evident. No suspicious spiculated or lobular masses cluster microcalcifications, architectural distortion, or other secondary signs of malignancy are radiographically apparent. Overall Assessment: Benign, BI-RAD 2 Management: Screening Mammogram of both breasts in 1 year. A clinical breast exam by your physician is recommended on an annual basis and results should be correlated with mammographic findings. This exam should not preclude additional follow-up of suspicious palpable abnormalities. Results were given to the patient verbally at the time of exam. Electronically signed and approved by: Ezequiel Chacko D.O. Radiologis
== END | disposition home or self-care (01) ==
LOC: RADMAMWWP 10:47
PROVIDERS: ATTEND Pediatrics
DX: R92.8 Other abnormal and inconclusive findings on diagnostic imaging of breast (principal); Z78.0 Asymptomatic menopausal state; Z80.3 Family history of malignant neoplasm of breast; Z90.721 Acquired absence of ovaries, unilateral
CPT/HCPCS: 77065; G0279; 77061

== ENCOUNTER → 2022-08-05 | Outpatient (CLI) | payer MEDICARE ==
--- NOTE | 2022-08-05 12:19 | CT ---
INDICATION: Patient age:Female; 72 years old; Reason for study: I77.4; [facility]. COMPARISON: CT chest abdomen pelvis 06/03/2022. TECHNIQUE: Multiple thin slice sub-millimeter images were obtained through the abdomen and pelvis bef ore and after administration of contrast. Patient was given Isovue 370, 100 cc intravenously. 3-D r econstructed images and maximum intensity projection images were obtained of the abdomen and pelvis. One or more CT dose reduction strategies were utilized during this examination. DLP administered was 179 mGycm. FINDINGS: CTA Abdomen and pelvis: The abdominal aorta does not demonstrate aneurysmal dilatation. Atherosclero tic plaquing is identified within the abdominal aorta. The origins of the superior mesenteric artery , renal arteries, and celiac axis are widely patent. The inferior mesenteric artery is not visualized . The iliac vessels are normal in morphology. Atherosclerotic plaquing with minimal mural thrombus f ormation is identified in the common iliac arteries. A single renal artery is noted bilaterally. Mild narrowing of the left common femoral artery secondary to calcified and noncalcified plaque. VISCERA ABDOMEN: Liver: Subcentimeter hypoattenuation lesion within the left hepatic lobe is stable and likely represe nts a cyst. Gallbladder and Bile ducts: Postcholecystectomy. No biliary duct dilatation.. Pancreas: Unremarkable. Spleen: Unremarkable. Adrenal glands: Unremarkable. Kidneys and Ureters: No hydronephrosis or renal calculus. The kidneys enhance symmetrically. PELVIS Bladder: Under distended, limiting evaluation.. Reproductive: The uterus is surgically absent. ABDOMEN & PELVIS Stomach and Bowel: No evidence of bowel obstruction or bowel wall thickening. Post surgical changes o f the sigmoid colon with anastomosis identified. Moderate amount of stool is present within the colon . Peritoneum: No evidence of pneumoperitoneum, free fluid, or adenopathy. Pelvic floor laxity. Vasculature: Unremarkable. No aortic aneurysm. Musculoskeletal: The osseous structures appear intact. Small fat filled umbilical hernia. LOWER CHEST: No significant findings. IMPRESSION: 1. No evidence of vascular occlusion or abdominal aortic aneurysm. 2. Mild atherosclerotic disease involving abdominal aorta and its branches.
== END | disposition home or self-care (01) ==
LOC: RADCTMAIN 10:25
PROVIDERS: ATTEND Internal Medicine Clinical Cardiac Electrophysiology
DX: I77.4 Celiac artery compression syndrome (principal); I70.0 Atherosclerosis of aorta
CPT/HCPCS: 82565; 84520; 74175; 36415; Q9967

== ENCOUNTER → 2022-09-01 | Outpatient (CLI) | payer MEDICARE ==
[2022-09-01 09:20] LABS: African American GFR (CKD) >90 (>60 ml/min/1.73 sqM); Blood Urea Nitrogen 12 mg/dL (7-17); Non-African American GFR(CKD) 85 (>60 ml/min/1.73 sqM)
--- NOTE | 2022-09-01 10:01 | CT ---
EXAMINATION TYPE: CT angio head CT DLP: 1339.2 mGycm, Automated exposure control for dose reduction was used. DATE OF EXAM: 09/01/2022 9:50 AM COMPARISON: CT head 02/27/2020 CTA head and neck 01/05/2017, MRA head 12/12/2016. 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 Axial images are supplemented with 3D reconstructions wh ich were post-processed at an independent workstation. FINDINGS: No evidence of acute intracranial hemorrhage, mass effect, or midline shift. The ventricles, sulci, a nd cisterns are unremarkable. Mild cerebral atrophy. Periventricular white matter changes redemonstra marta. The visualized portions of the internal carotid arteries, middle cerebral arteries, anterior cerebral arteries, and posterior cerebral arteries are patent. Stable prominence of the distal right middle c erebral artery measuring up to 2 mm just past the trifurcation (series 7, image 17). Patency of both posterior communicating arteries. Patency of the anterior communicate artery. The basilar and vertebral arteries are patent. Stable bulbous appearance of the tip of the basilar ar scar measuring up to 5 mm (series 7, image 18). IMPRESSION: 1. No evidence of high-grade stenosis. 2. 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
== END | disposition home or self-care (01) ==
LOC: RADCTMAIN 08:12
PROVIDERS: ATTEND Radiology Vascular & Interventional Radiology
DX: I67.1 Cerebral aneurysm, nonruptured (principal)
CPT/HCPCS: 82565; 84520; 70496; 36415; Q9967

== ENCOUNTER → 2022-09-21 | Outpatient (CLI) | payer MEDICARE ==
[2022-09-21 19:28] LABS: HCT 35.2 % (37.2-46.3); HGB 11.1 g/dL (12.0-15.0); MCH 30.8 pg (27.0-32.0); MCHC 31.5 g/dL (32.0-37.0); MCV 97.8 fL (80.0-97.0); Mean Platelet Volume 9.5 fL (9.5-12.2); NRBC Per 100 WBC 0 /100 WBCS (0.0-0.0); Platelet Count 455 X 10*3/uL (140-440); RDW 12.9 % (11.5-14.5); WBC 9.59 X 10*3/uL (4.50-10.00)
[2022-09-21 19:48] LABS: African American GFR (CKD) 83.3 (60.0-200.0); Anion Gap 9.2 mmol/L (10.00-18.00); Blood Urea Nitrogen 8.8 mg/dL (9.0-27.0); Carbon Dioxide 27.1 mmol/L (20.0-27.5); Non-African American GFR(CKD) 71.9 (60.0-200.0); Potassium 4.1 mmol/L (3.5-5.5)
== END | disposition home or self-care (01) ==
LOC: LABPAT 12:37
PROVIDERS: ATTEND Internal Medicine Clinical Cardiac Electrophysiology
DX: Z01.812 Encounter for preprocedural laboratory examination (principal); I49.5 Sick sinus syndrome; I47.1 Supraventricular tachycardia
CPT/HCPCS: 80051; 82565; 84520; 85027

== ENCOUNTER → 2023-05-18 | Outpatient (CLI) | payer MEDICARE ==
--- NOTE | 2023-05-18 10:48 | MM ---
Reason for Exam: Clinical finding. Last screening mammogram was performed 10 month(s) ago. Patient History: Menarche at age 10. First Full-Term at age 16. Left ovary removed at age 21. Right ovary removed at age 21. Hysterectomy at age 21. Postmenopausal. Patient has history of breast feeding. Patient used Estrogen for 20 years. Benign Excisional Biopsy on the right side. Benign Excisional Biopsy on the left side. Maternal aunt had breast cancer, age 50. Mother had breast cancer, age 30. Risk Values: Thea 5 year model risk: 4.9%. NCI Lifetime model risk: 11.0%. Tissue Density: The breast tissue is heterogeneously dense. This may lower the sensitivity of mammography. Findings: Analyzed By CAD. Asymmetric breast tissue suggested as clinical concern left breast. Ultrasound is advised. No evidence for mass within the right breast. No suspicious calcifications seen bilaterally. Overall Assessment: Incomplete: need additional imaging evaluation, BI-RAD 0 Management: Diagnostic Breast Ultrasound of the left breast. . Results were given to the patient verbally at the time of exam. Patient should continue monthly self-breast exams. A clinical breast exam by your physician is recommended on an annual basis. This exam should not preclude additional follow-up of suspicious palpable abnormalities. Note on Thea scores and lifetime risk: 1. A Thea score greater than 3% is considered moderate risk. If this is the case, consider specialist referral to assess eligibility for a risk reducing agent. 2. If overall lifetime risk for the development of breast cancer is 20% or higher, the patient may qualify for future screening with alternating mammogram and breast MRI. Electronically signed and approved by: Harman Jj M.D. Radiologis
--- NOTE | 2023-05-18 11:16 | USB ---
Reason for Exam: Clinical finding. Patient History: Menarche at age 10. First Full-Term at age 16. Left ovary removed at age 21. Right ovary removed at age 21. Hysterectomy at age 21. Postmenopausal. Patient has history of breast feeding. Patient used Estrogen for 20 years. Benign Excisional Biopsy on the right side. Benign Excisional Biopsy on the left side. Maternal aunt had breast cancer, age 50. Mother had breast cancer, age 30. Risk Values: Thea 5 year model risk: 4.9%. NCI Lifetime model risk: 11.0%. Technique: Method: Targeted. Prior Study Comparison: 01/14/2021 Bilateral Screening Mammogram, [facility]. 07/26/2022 Bilateral MG 3D screening mammo w/cad, [facility]. 07/29/2022 Left MG 3D work up w/cad LT, [facility]. Findings: The upper outer quadrant of the left breast, the axilla of the left breast and the retroareolar of the left breast were scanned. Electronically signed and approved by: Harman Jj M.D. Radiologis
== END | disposition home or self-care (01) ==
LOC: RADMAMWWP 09:25
PROVIDERS: ATTEND Pediatrics
DX: N63.15 Unspecified lump in the right breast, overlapping quadrants (principal); N63.25 Unspecified lump in the left breast, overlapping quadrants; N64.4 Mastodynia; Z78.0 Asymptomatic menopausal state; Z80.3 Family history of malignant neoplasm of breast
CPT/HCPCS: 77066; 76642; G0279; 77062

== ENCOUNTER → 2024-01-17 | Outpatient (CLI) | payer MEDICARE ==
--- NOTE | 2024-01-18 17:47 | XR ---
EXAMINATION TYPE: XR chest 2V DATE OF EXAM: 01/17/2024 COMPARISON: 08/08/2019 INDICATION: Night sweats/short of breath chest pain TECHNIQUE: Frontal and lateral views of the chest are obtained. FINDINGS: The heart size is normal. The pulmonary vasculature is normal. The lungs are clear. IMPRESSION: 1. No acute pulmonary process.
== END | disposition home or self-care (01) ==
LOC: RADXRMAIN 12:59
PROVIDERS: ATTEND Pediatrics
DX: R23.2 Flushing (principal); R06.02 Shortness of breath; R07.9 Chest pain, unspecified
CPT/HCPCS: 71046

== ENCOUNTER → 2024-12-03 | Outpatient (CLI) | payer MEDICARE ==
[2024-12-03 15:23] LABS: Basophils # (A) 0.15 X 10*3/uL (0.00-0.10); Basophils % (A) 2.6 %; Eosinophils % (A) 1.8 %; HCT 37.4 % (37.2-46.3); HGB 11.6 g/dL (12.0-15.0); Lymphocytes # (A) 1.83 X 10*3/uL (0.90-5.00); Lymphocytes % (A) 32.2 %; MCH 29.8 pg (27.0-32.0); MCV 96.1 FL (80.0-97.0); Monocytes # (A) 0.49 X 10*3/uL (0.20-1.00); Monocytes % (A) 8.6 %; NRBC Per 100 WBC 0 X 10*3/uL (0.00-0.01); Neutrophils # (A) 3.11 X 10*3/uL (1.80-7.70); Neutrophils % (A) 54.6 %; Platelet Count 427 X 10*3/uL (140-440); RBC 3.89 X 10*6/uL (4.10-5.20); RDW 12.6 % (11.5-14.5); WBC 5.69 X 10*3/uL (4.50-10.00)
[2024-12-03 15:39] LABS: Hepatitis B Surface Antigen Nonreactive (Nonreactive); Hepatitis C IgG Antibody Nonreactive (Nonreactive)
[2024-12-03 15:42] LABS: ALT 12 U/L (8-44); AST 19 U/L (13-35); Albumin 4.1 g/dL (3.8-4.9); Albumin/Globulin Ratio 1.78 Ratio (1.60-3.17); Alkaline Phosphatase 83 U/L (41-126); Blood Urea Nitrogen 6.2 mg/dL (9.0-27.0); C Reactive Protein <0.30 mg/dL (0.00-0.80); Calcium 9.5 mg/dL (8.7-10.3); Carbon Dioxide 25.6 mmol/L (21.6-31.8); Chloride 102 mmol/L (96-109); Creatine Kinase 63 U/L (26-186); Globulin 2.3 g/dL (1.6-3.3); Glucose 91 mg/dL (70-110); Potassium 4.2 mmol/L (3.5-5.5); Rheumatoid Factor, Qnt 46 IU/mL (0-15); Sodium 139 mmol/L (135-145); T4, Free (Free Thyroxine) 0.96 ng/dL (0.80-1.80); Total Bilirubin 0.3 mg/dL (0.3-1.2); Total Protein 6.4 g/dL (6.2-8.2); Uric Acid 4.9 mg/dL (2.9-7.7)
[2024-12-03 16:14] LABS: Appearance,Urine Clear (Clear); Bilirubin,Urine Negative (Negative); Blood,Urine Small (Negative); Color,Urine Dark Yellow (Yellow); Ketones,Urine Trace (Negative); Nitrite,Urine Negative (Negative); PH, Urine 6.5; Specific Gravity,Urine 1.015 (1.001-1.030)
[2024-12-03 16:48] LABS: Bacteria,Urine None Seen (None Seen)
[2024-12-03 16:58] LABS: Erythrocyte Sedimentation Rate 4 mm/Hr (0-30)
[2024-12-03 18:56] LABS: Cyclic Citrull Pep IgG Unit <1.5 U/mL (<=3.9); Cyclic Citrullinated Pep IgG Negative
[2024-12-03 19:12] LABS: Anti-DNA, DS unit <1.0 IU/mL; Anti-Smith Ab Interp Negative (Negative); Cardiolipin Ab IgG Interp Negative (Negative); Cardiolipin Ab IgM Interp Negative (Negative); Cardiolipin IgA Antibody 3.1 U/mL; DNA Double-Stranded Negative (Negative)
[2024-12-04 10:06] LABS: Angiotensin-1 Converting Enz. 32 U/L (8-52)
[2024-12-04 11:21] LABS: Free Kappa Lt Chain Qnt, Serum 2.47 mg/dL (0.33-1.94); Free Lambda Lt Chain Qnt, Seru 2.32 mg/dL (0.57-2.63)
[2024-12-04 12:34] LABS: APTT 32 Sec(s) (<43); Dilute Russell Viper Venom 27 Sec(s) (<44)
[2024-12-04 15:07] LABS: C-ANCA <1:20 Titer (<1:20)
== END | disposition home or self-care (01) ==
LOC: LABWHC1 10:51
PROVIDERS: ATTEND Internal Medicine Rheumatology
DX: Z11.59 Encounter for screening for other viral diseases (principal); E55.9 Vitamin D deficiency, unspecified; E03.9 Hypothyroidism, unspecified; Z72.89 Other problems related to lifestyle
CPT/HCPCS: 36415; 80053; 81001; 82164; 82306; 82550; 83883; 84439; 84443; 84550; 85025; 85613; 85652; 85730; 86038; 86140; 86147; 86160; 86200; 86225; 86235; 86255; 86431; 86803; 87340; 87522

== ENCOUNTER → 2024-12-14 | Outpatient (CLI) | payer MEDICARE ==
--- NOTE | 2024-12-14 12:38 | MR ---
EXAMINATION TYPE: MR angio head wo con DATE OF EXAM: 12/14/2024 12:27 PM COMPARISON: 12/12/2016 CLINICAL INDICATION: Female, 74 years old with history of I67.1 non ruptured aneurysm, F/U aneurysm. IV Contrast: cc (None if empty) TECHNIQUE: Time of flight images focusing on the [place] were performed without contrast. FINDINGS: The carotid and vertebrobasilar systems appear normal without sizable aneurysm sac, vascula r malformation or occlusive disease. The 2 mm aneurysm in the distal right middle cerebral artery see n on prior studies is not appreciated on the current study. IMPRESSION: No significant abnormality seen. [facility], , 12/14/2024 12:36 PM
== END | disposition home or self-care (01) ==
LOC: RADMRIMAIN 12:01
PROVIDERS: ATTEND Radiology Vascular & Interventional Radiology
DX: I67.1 Cerebral aneurysm, nonruptured (principal)
CPT/HCPCS: 70544